=== PATIENT | female | born 1980 | race Caucasian/White ===

== ENCOUNTER 2019-12-16 08:17 | Outpatient (CLI) | payer BC, SELFPAY ==
--- NOTE | ~2019-12-16 | MR_ITS ---
EXAMINATION: MR cervical spine wo con EXAM DATE: 12/16/2019 09:20 INDICATION: Cervical pain, right arm pain. TECHNIQUE: Multi-sequential, multiplanar MR images of the cervical spine were obtained without contra st. Axial T2, axial T2 MERGE sequence. Sagittal T1, T2, T2 fat saturation images also obtained. Com parison is made to prior examination from 08/12/2011. FINDINGS: Mild to moderate disc disease at C6-7. The vertebral body and disc heights are otherwise w ell maintained. The vertebral bodies are aligned in the AP dimension. The spinal cord signal intensit y and intrinsic morphology is normal. Cervicomedullary junction is normal in appearance. Paraspinal soft tissue is unremarkable. Level by level evaluation: C2-C3: Disc does not extend beyond the endplate margin. Uncovertebral joint arthropathy: Minimal bilateral. Facet joint arthropathy: Minimal bilateral. Neural foraminal stenosis: No stenosis. Central canal stenosis: No stenosis. C3-C4: There is a minimal diffuse disc bulge. Uncovertebral joint arthropathy: Mild to moderate left, mild right. Facet joint arthropathy: Minimal bilateral. Neural foraminal stenosis: Mild left. Central canal stenosis: No stenosis. C4-C5: There is a minimal diffuse disc bulge. Uncovertebral joint arthropathy: Mild to moderate bilateral. Facet joint arthropathy: Mild bilateral. Neural foraminal stenosis: Mild bilateral. Central canal stenosis: No stenosis. C5-C6: There is a minimal diffuse disc bulge. Uncovertebral joint arthropathy: Mild bilateral. Facet joint arthropathy: Mild bilateral. Neural foraminal stenosis: No stenosis. Central canal stenosis: No stenosis. C6-C7: There is a mild to moderate diffuse disc bulge asymmetric to the right, indenting the right an terior aspect of spinal cord without cord edema. Uncovertebral joint arthropathy: Mild to moderate right, mild left. Facet joint arthropathy: Minimal bilateral. Neural foraminal stenosis: Mild to moderate right, mild left. Central canal stenosis: Mild. Central canal measures 7 mm in mid sagittal AP diameter . C7-T1: Disc does not extend beyond the endplate margin. Uncovertebral joint arthropathy: None. Facet joint arthropathy: None. Neural foraminal stenosis: No stenosis. Central canal stenosis: No stenosis. Compared to 2011, C6 disc bulge, right neural foraminal stenosis have developed. IMPRESSION: 1. C6-7 mild to moderate disc bulge, right neural foraminal stenosis. 2. Otherwise minimal cervical spondylosis. Reviewed, dictated and finalized at location A.
== END 2019-12-16 08:18 | disposition home or self-care (01) ==
LOC: ANHIMG 08:27
PROVIDERS: PCP Physician Assistant; Visit Provider Physician Assistant
DX: M79.2 Neuralgia and neuritis, unspecified (principal); M47.892 Other spondylosis, cervical region; M50.223 Other cervical disc displacement at C6-C7 level
CPT/HCPCS: 72141

== ENCOUNTER → 2020-08-04 13:39 | Outpatient (CLI) | payer BC, SELFPAY ==
--- NOTE | ~2020-08-04 | XR_ITS ---
XR knee RT 3V DATE: 08/04/2020 14:00 INDICATION: Acute right knee pain TECHNIQUE: 3 views COMPARISON: 08/05/2014 bilateral knee FINDINGS: Mild superior pole patellar enthesopathy at the quadriceps tendon insertion site and lower pole patellar enthesopathy at the patellar tendon insertion site. No fracture or dislocation or joint effusion. No periosteal reaction or bone destruction, radiopaque intra-articular loose body or chondrocalcinosis. Joint spaces are relatively preserved. IMPRESSION: Patellar enthesopathy Reviewed, dictated and finalized at location A. IMPRESSION: Patellar enthesopathy
== END ==
PROVIDERS: PCP Physician Assistant; Visit Provider Physician Assistant
DX: M25.561 Pain in right knee (principal); M76.51 Patellar tendinitis, right knee
CPT/HCPCS: 73562

== ENCOUNTER 2020-10-20 13:08 | Outpatient (CLI) | payer BC, SELFPAY ==
--- NOTE | ~2020-10-20 | MMUS_ITS ---
EXAMINATION: MM diagnostic criss RT w davi, US breast RT limited HISTORY: Palpable breast abnormality TECHNIQUE: Additional 3-D tomosynthesis images of the right breast were performed and synthetic 2-D i mages were generated. CAD analysis was submitted and interpreted. High resolution Limited right breas t ultrasound was performed. COMPARISON: None BREAST PARENCHYMAL COMPOSITION: Breast composed of scattered areas of fibroglandular density. FINDINGS: MAMMOGRAPHIC FINDINGS: There are no suspicious masses, calcifications or architectural distortion in the right breast to sug gest malignancy. ULTRASOUND: Limited right breast ultrasound: At 7:00, 5 cm from the nipple in the area of palpable concern there is an oval circumscribed hypoechoic mass in the subcutaneous tissues measuring 8 x 7 x 2 mm. No signi ficant posterior features. Parallel orientation. IMPRESSION: 1. Probable benign 8 mm subcutaneous mass of the right breast at 7:00, 5 cm from the nipple. 2. Recommend 6 month follow-up limited right breast ultrasound BI-RADS category 3, probably benign findings. Reviewed, dictated and finalized at location A. IMPRESSION: 1. Probable benign 8 mm subcutaneous mass of the right breast at 7:00, 5 cm fro m the nipple. 2. Recommend 6 month follow-up limited right breast ultrasound BI-RADS category 3, probably benign findings.
== END 2020-10-20 13:09 | disposition home or self-care (01) ==
PROVIDERS: PCP Physician Assistant; Visit Provider Physician Assistant
DX: N60.01 Solitary cyst of right breast (principal); R92.8 Other abnormal and inconclusive findings on diagnostic imaging of breast
CPT/HCPCS: 76642; 77061; 77065; G0279

== ENCOUNTER 2020-11-06 09:35 | Outpatient (CLI) | payer BC, SELFPAY ==
--- NOTE | 2020-11-06 | ECG_ITS ---
Measurements Intervals [place] Rate: 80 P: 62 IN: 137 QRS: 49 QRSD: 84 T: 54 QT: 373 QTc: 433 Interpretive Statements SINUS RHYTHM POSSIBLE LEFT ATRIAL ENLARGEMENT INCOMPLETE RIGHT BUNDLE BRANCH BLOCK LOW QRS VOLTAGE IN PRECORDIAL LEADS BORDERLINE ST-T WAVE ABNORMALITY- DIFFUSE LEADS BORDERLINE ECG Electronically Signed On 11-06-2020 10:23:25 CDT by Shar Mo D.O.
--- NOTE | ~2020-11-06 | XR_ITS ---
EXAMINATION: XR chest 2V DATE: 11/06/2020 10:06 INDICATION: Left anterior chest pain. TECHNIQUE: Frontal and lateral views of the chest were obtained on 3 radiographs. COMPARISON: Chest 2 views 10/09/2018 FINDINGS: A calcified left lung nodule is consistent with old granulomatous disease. No pleural effus ion or pneumothorax. The heart size is normal. There are changes of anterior fusion procedure in cerv ical spine. Surgical clips in the right upper quadrant are likely from cholecystectomy. IMPRESSION: 1. No acute cardiopulmonary disease. Reviewed, dictated and finalized at location B.
[2020-11-06 10:38] LABS: Basophils Absolute Auto 0.1 K/mm3 (0.0-0.1); Basophils Percent Auto 0.5 % (0.2-1.2); Eosinophils Absolute Auto 0.2 K/mm3 (0-0.3); Eosinophils Percent Auto 1.4 % (0-4.4); Hemoglobin 14.6 g/dL (12.0-15.0); Immature Granulocyte Absolute 0.03 K/mm3 (0.00-0.031); Immature Granulocyte Percent A 0.2 % (0-0.5); Lymphocytes Absolute Auto 1.88 K/mm3 (0.9-3.2); Lymphocytes Percent Auto 14.7 % (18.3-44.2); Mean Corpuscular HGB Conc 33.2 g/dl (32-36); Mean Corpuscular Volume 93.4 fl (80-100); Mean Platelet Volume 9.7 fl (7.4-10.4); Monocytes Absolute Auto 0.6 K/mm3 (0.1-0.6); Monocytes Percent Auto 4.9 % (2.6-8.5); Neutrophils Percent Auto 78.3 % (45.5-73.1); Platelet Count Result 261 k/mm3 (150-375); Red Blood Count 4.71 M/mm3 (4.2-5.4); Red Cell Distribution Width 12.4 % (11.5-14.5); White Blood Count 12.8 K/mm3 (4.5-10.0)
[2020-11-06 10:45] LABS: Alanine Aminotransferase 23 U/L (4-35); Albumin Level 4.5 g/dL (3.5-5.1); Alkaline Phosphatase 76 U/L (38-126); Anion Gap 8 mmol/L (8-16); Aspartate Amino Transferase 24 U/L (14-36); Bilirubin,Total 0.5 mg/dL (0.2-1.3); Blood Urea Nitrogen 6 mg/dL (7-17); Calcium 9.5 mg/dL (8.4-10.2); Carbon Dioxide 27 mmol/L (22-30); Chloride 102 mmol/L (98-107); Estimated Glomerular Filt Rate > 60; Glucose 95 mg/dL (65-110); Potassium 3.8 mmol/L (3.4-5.0); Sodium 137 mmol/L (137-145)
[2020-11-06 10:47] LABS: D Dimer 0.38 ug/mL (<0.48)
[2020-11-06 11:00] LABS: Troponin I < 0.012 ng/mL (0.000-0.034)
== END 2020-11-06 09:36 | disposition home or self-care (01) ==
PROVIDERS: PCP Physician Assistant; Visit Provider Physician Assistant
DX: R07.89 Other chest pain (principal); I45.10 Unspecified right bundle-branch block
CPT/HCPCS: 36415; 71046; 80053; 84484; 85025; 85380; 93005

== ENCOUNTER 2020-11-06 18:48 | Emergency (ER) | payer BC, SELFPAY ==
--- NOTE | 2020-11-06 18:51 | ECG_ITS ---
Measurements Intervals [place] Rate: 100 P: 55 CO: 137 QRS: 41 QRSD: 86 T: 55 QT: 351 QTc: 454 Interpretive Statements SINUS TACHYCARDIA POSSIBLE LEFT ATRIAL ENLARGEMENT LOW QRS VOLTAGE IN PRECORDIAL LEADS BORDERLINE ST-T WAVE ABNORMALITY- DIFFUSE LEADS BORDERLINE ECG Electronically Signed On 11-06-2020 20:07:56 CDT by Shar Mo D.O.
[2020-11-06 19:17] LABS: Basophils Absolute Auto 0.1 K/mm3 (0.0-0.1); Basophils Percent Auto 0.4 % (0.2-1.2); Eosinophils Absolute Auto 0.1 K/mm3 (0-0.3); Hematocrit 45.5 % (37.0-47.0); Hemoglobin 15.3 g/dL (12.0-15.0); Immature Granulocyte Absolute 0.04 K/mm3 (0.00-0.031); Immature Granulocyte Percent A 0.3 % (0-0.5); Lymphocytes Absolute Auto 2.98 K/mm3 (0.9-3.2); Lymphocytes Percent Auto 23.2 % (18.3-44.2); Mean Corpuscular HGB Conc 33.6 g/dl (32-36); Mean Corpuscular Hemoglobin 31.2 pg (26-34); Mean Corpuscular Volume 92.7 fl (80-100); Mean Platelet Volume 9.6 fl (7.4-10.4); Monocytes Absolute Auto 0.6 K/mm3 (0.1-0.6); Monocytes Percent Auto 4.4 % (2.6-8.5); Neutrophils Absolute Auto 9.1 K/mm3 (1.3-6.7); Neutrophils Percent Auto 70.7 % (45.5-73.1); Platelet Count Result 271 k/mm3 (150-375); Red Blood Count 4.91 M/mm3 (4.2-5.4); Red Cell Distribution Width 12.4 % (11.5-14.5); White Blood Count 12.9 K/mm3 (4.5-10.0)
[2020-11-06 19:28] LABS: Partial Thromboplastin Time 25.6 SECONDS (22.3-36.8)
[2020-11-06 19:29] LABS: Anion Gap 10 mmol/L (8-16); Blood Urea Nitrogen 7 mg/dL (7-17); Calcium 9.8 mg/dL (8.4-10.2); Carbon Dioxide 24 mmol/L (22-30); Chloride 103 mmol/L (98-107); Estimated Glomerular Filt Rate > 60; Glucose 108 mg/dL (65-110); Potassium 3.6 mmol/L (3.4-5.0); Sodium 137 mmol/L (137-145)
[2020-11-06 19:37] VITALS: BP 142/88; PULSE 101; RESP 18; TEMP 36.5; O2SAT 100
[2020-11-06 19:41] LABS: Troponin I < 0.012 ng/mL (0.000-0.034)
[2020-11-06 21:27] VITALS: BP 128/76; PULSE 81; O2SAT 98
--- NOTE | 2020-11-06 21:54 | PC.NURSE ---
2154: Called pt to go back to a room, no answer
--- NOTE | 2020-11-06 23:53 | PC.NURSE ---
Called pt for room placement at this time. No answer.
== END 2020-11-06 23:53 | disposition left against medical advice (07) ==
LOC: ANHED 11-07 00:04
PROVIDERS: Emergency Medicine; PCP Physician Assistant
DX: R07.9 Chest pain, unspecified (principal)
CPT/HCPCS: 36415; 80048; 84484; 85025; 85610; 85730; 93005; 99199

== ENCOUNTER 2021-04-29 12:12 | Outpatient (CLI) | payer BC, SELFPAY ==
--- NOTE | ~2021-04-29 | US_ITS ---
EXAMINATION: US breast RT limited HISTORY: Six-month follow-up for probably benign right breast mass TECHNIQUE: Limited right breast ultrasound is performed. COMPARISON: 10/20/2020 FINDINGS: There is a 6 mm x 2 mm oval, hypoechoic mass in the skin at the 7:00 location 5 cm from the nipple in the area previously characterized. This has reportedly undergone interval ulceration and d rainage. IMPRESSION: Skin lesion of the right breast with interval decrease in size, most consistent with a sebaceous cyst . BI-RADS Category 2: Benign finding(s). Reviewed, dictated and finalized at location A. 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 BI-RADS Category 2: Benign finding(s).
== END 2021-04-29 12:13 | disposition home or self-care (01) ==
LOC: ANHIMG 12:15
PROVIDERS: PCP Physician Assistant; Visit Provider Physician Assistant
DX: R92.8 Other abnormal and inconclusive findings on diagnostic imaging of breast (principal)
CPT/HCPCS: 76642

== ENCOUNTER → 2021-05-05 16:42 | Outpatient (CLI) | payer BC, SELFPAY ==
--- NOTE | ~2021-05-05 | XR_ITS ---
EXAMINATION: XR sacrum coccyx min 2V DATE: 05/05/2021 17:25 INDICATION: Back pain post fall TECHNIQUE: 1. One AP, lateral and lateral swimmer's views of the thoracic spine were obtained. 2. AP, lateral and coned-down lateral lumbosacral views of the lumbar spine were obtained. 3. AP, angled AP and lateral views of the sacrum and coccyx were obtained. COMPARISON: None. FINDINGS: C6-C7 anterior spinal fusion with interbody bone graft cages and anterior plate and screw fixation. 5 degrees upper thoracic levocurvature. Otherwise normal alignment of the thoracic and lumbar spine. T horacic and lumbar vertebral body heights are normal. There is mild disc height loss with minimal deg enerative endplate changes at a few levels the mid and lower thoracic spine. Lumbar disc heights are normal with mild degenerative endplate changes at L2-L3 and L3-L4. Sacrum and coccyx are normal with intact sacral arches. No fractures identified. Bilateral hip and sacroiliac joints are normal. Uncha nged sclerotic bone island at the left iliac crest unchanged since pelvis radiograph dated 08/02/2014. Cholecystectomy clips in right upper quadrant. Visualized lungs are clear. Cardiomediastinal silhoue tte is normal. IMPRESSION: 1. Mild thoracic and minimal lumbar spondylosis. No acute osseous abnormality in the thoracic and lum bar spine, sacrum or coccyx. Reviewed, dictated and finalized at location A. ALARM DISPATCHER IMPRESSION: 1. Mild thoracic and minimal lumbar spondylosis. No acute osseous abnormality i n the thoracic and lumbar spine, sacrum or coccyx.
--- NOTE | ~2021-05-05 | XR_ITS ---
EXAMINATION: XR thoracic spine 3V DATE: 05/05/2021 17:25 INDICATION: Back pain post fall TECHNIQUE: 1. One AP, lateral and lateral swimmer's views of the thoracic spine were obtained. 2. AP, lateral and coned-down lateral lumbosacral views of the lumbar spine were obtained. 3. AP, angled AP and lateral views of the sacrum and coccyx were obtained. COMPARISON: None. FINDINGS: C6-C7 anterior spinal fusion with interbody bone graft cages and anterior plate and screw fixation. 5 degrees upper thoracic levocurvature. Otherwise normal alignment of the thoracic and lumbar spine. T horacic and lumbar vertebral body heights are normal. There is mild disc height loss with minimal deg enerative endplate changes at a few levels the mid and lower thoracic spine. Lumbar disc heights are normal with mild degenerative endplate changes at L2-L3 and L3-L4. Sacrum and coccyx are normal with intact sacral arches. No fractures identified. Bilateral hip and sacroiliac joints are normal. Unchan ged sclerotic bone island at the left iliac crest unchanged since pelvis radiograph dated 08/02/2014. Cholecystectomy clips in right upper quadrant. Visualized lungs are clear. Cardiomediastinal silhouet te is normal. IMPRESSION: 1. Mild thoracic and minimal lumbar spondylosis. No acute osseous abnormality in the thoracic and lum bar spine, sacrum or coccyx. Reviewed, dictated and finalized at location A. SCALE MAN IMPRESSION: 1. Mild thoracic and minimal lumbar spondylosis. No acute osseous abnormality i n the thoracic and lumbar spine, sacrum or coccyx.
--- NOTE | ~2021-05-05 | XR_ITS ---
EXAMINATION: XR lumbar spine 2-3V DATE: 05/05/2021 17:25 INDICATION: Back pain post fall TECHNIQUE: 1. One AP, lateral and lateral swimmer's views of the thoracic spine were obtained. 2. AP, lateral and coned-down lateral lumbosacral views of the lumbar spine were obtained. 3. AP, angled AP and lateral views of the sacrum and coccyx were obtained. COMPARISON: None. FINDINGS: C6-C7 anterior spinal fusion with interbody bone graft cages and anterior plate and screw fixation. 5 degrees upper thoracic levocurvature. Otherwise normal alignment of the thoracic and lumbar spine. T horacic and lumbar vertebral body heights are normal. There is mild disc height loss with minimal deg enerative endplate changes at a few levels the mid and lower thoracic spine. Lumbar disc heights are normal with mild degenerative endplate changes at L2-L3 and L3-L4. Sacrum and coccyx are normal with intact sacral arches. No fractures identified. Bilateral hip and sacroiliac joints are normal. Unchan ged sclerotic bone island at the left iliac crest unchanged since pelvis radiograph dated 08/02/2014. Cholecystectomy clips in right upper quadrant. Visualized lungs are clear. Cardiomediastinal silhouet te is normal. IMPRESSION: 1. Mild thoracic and minimal lumbar spondylosis. No acute osseous abnormality in the thoracic and lum bar spine, sacrum or coccyx. Reviewed, dictated and finalized at location A. REDUCTION TECHNICIAN IMPRESSION: 1. Mild thoracic and minimal lumbar spondylosis. No acute osseous abnormality i n the thoracic and lumbar spine, sacrum or coccyx.
--- NOTE | ~2021-05-05 | XR_ITS ---
EXAMINATION: XR hip LT min 2V DATE: 05/05/2021 17:24 INDICATION: Left hip pain TECHNIQUE: Anteroposterior , frog leg and cross-table lateral views of the left hip were obtained. COMPARISON: 08/05/2014 FINDINGS: Alignment is normal. No fracture. No suspected avascular necrosis. Left hip joint space is normal. Un changed sclerotic bone island at the left iliac wing. IMPRESSION: 1. Negative left hip radiographs. Reviewed, dictated and finalized at location A. OMS ENTRY WRITER
== END ==
PROVIDERS: PCP Physician Assistant; Visit Provider Physician Assistant
DX: M54.42 Lumbago with sciatica, left side (principal); M54.41 Lumbago with sciatica, right side; G89.29 Other chronic pain; M25.559 Pain in unspecified hip; M47.894 Other spondylosis, thoracic region
CPT/HCPCS: 72072; 72100; 72220; 73502

== ENCOUNTER 2021-06-15 09:30 | Outpatient (RCR) | payer BC, SELFPAY ==
--- NOTE | 2021-04-30 17:41 | PTOPEVAL ---
Thank you for referring Kelsie Vaughn to [facility].? The patient is scheduled to be seen for therapy?1 x/week for 8 weeks. Please review, sign, date and return this plan of care STEFANI. I agree with and certify that the following plan of care is medically necessary. Referring Physician Date Attending Provider: Bradley Pitts Problem Diagnosis NTOS corey Onset chronic Additional Evaluation Detail 2020 in therapy after neck surgery. She had TOS therapy in her 20's. Subjective Information She reports limitation with Query Text:As Reported By Patient/ all activities due to her UE Family pain. She c/o numbness and spasms into corey UE. Reports the pain is in her chest, front of shoulder, scapular/ arm pit region. She is limited with prolonged overhead use due to UE numbness. Prolonged driving increases symptoms unless her UE are located on the bottom of wheel. Increased symptoms and hand spasms with prolonged use of hands with typing or writing. Increased pain/ symptoms noted with sleeping. Pain Assessment Timing of Pain Assessment Timing of Pain Assessment Assessment Pain Scale Pain Scale Used Numeric (1 - 10) Self Report Pain Assessment Left Arm(s) Reported Pain Level 3 Pain Description Aching,Numbness,Radiating, Tingling Pain Frequency Chronic,Continuous Lowest Pain Intensity 3 Greatest Pain Intensity 7 Pain Aggravating Factors ADL's,Exercise/Activity, Lifting,Prolonged Position, Sitting Right Arm(s) Reported Pain Level 3 Pain Description Numbness,Radiating,Tingling Pain Frequency Chronic,Continuous Lowest Pain Intensity 3 Greatest Pain Intensity 8 Pain Aggravating Factors ADL's,Exercise/Activity, Lifting,Prolonged Position, Sitting Pain Score Pain Score 3,3: Self Report Interventions Used Interventions Used By Clinicians Education,Exercise Upper Extremity Range of Motion Scapular/ Shoulder Range of Motion Left Shoulder Flexion - Active 160 Shoulder Extension - Active 40 Shoulder Abduction - Active 160 Shoulder Medial Rotation - Active
--- NOTE | 2021-06-01 08:58 | PCPTNOTE ---
Patient called & cancelled scheduled appointment this date due to having a flare-up today.
--- NOTE | 2021-06-22 08:54 | PCPTNOTE ---
Patient called & cancelled scheduled appointment this date due to car trouble.
--- NOTE | 2021-07-07 07:10 | PCPTNOTE ---
Admitting Provider: Attending Provider: Bradley Pitts Patient:Kelsie Vaughn Date of :1980 Physical Therapy Discharge Note Patient has not returned for any further treatments since 06/15/2021, therefore she will be discharged at this time. Patient?s initial visit was on 04/30/2021 and she had a total of 6 visits with 3 missed visits. She has been provided home exercise program to address her symptoms. As a result of skilled therapy services she demonstrates only slight changes with joint motion with no changes in symptoms. The goals have been partially met to not me at this time. Thank you for referring this patient to [facility]. Please review, sign, date and return this discharge summary STEFANI. I have been updated about the patient's current status and I agree with discharge from the above service at this time. Referring Physician Date
== END 2021-07-07 11:20 | disposition home or self-care (01) ==
LOC: ANHPT 09:30
PROVIDERS: PCP Physician Assistant
DX: G54.0 Brachial plexus disorders (principal)
CPT/HCPCS: 97110; 97112; 97140; 97163

== ENCOUNTER 2021-10-12 08:16 | Inpatient (IN) | payer BC, SELFPAY ==
[2021-10-12] VITALS (11 sets, daily range): BP systolic 93–111; BP diastolic 57–84; PULSE 90–114; RESP 16–22; TEMP 36.2–36.9; O2SAT 97–99
--- NOTE | 2021-10-12 | ECHO_ITS ---
Patient Info Name: Kelsie Vaughn Age: 40 years : 1980 Gender: Female Ht: 65 in Wt: 213 lbs BSA: 2.15 m2 HR: 109 bpm BP: 104 / 84 mmHg Heart Rhythm: Sinus Rhythm Technical Quality: Fair Exam Date: 10/12/2021 4:19 PM Exam Location: [facility] Pulmonary Exam Room: 201 Patient Status: Inpatient Admit Date: 10/12/2021 Staff Ordering Physician: Trip Johnson MD Shell Freezing Machine Operator: [id number] Attending Provider: Sheela Jean-Baptiste DO Referring Physician: Elizabeth BECERRIL; Exam Type: CA echo doppler color flow Study Info Indications - pericardial effusion Complete two-dimensional, color flow and Doppler transthoracic echocardiogram is performed. Summary 1. Complete two-dimensional, color flow and Doppler transthoracic echocardiogram is performed. 2. Left ventricular chamber dimension is normal. 3. Left ventricular systolic function is normal, estimated at 60-65%. 4. The pericardium appears thickened pericardium. 5. There is small circumferential pericardial effusion. 6. No valvular dysfunction. Left Ventricle Left ventricular chamber dimension is normal. Left ventricular systolic function is normal, estimated at 60-65%. The left ventricular diastolic function is grade I diastolic dysfunction. Right Ventricle Right ventricular chamber dimension is normal. Left Atria Left atrial chamber dimension is normal. Right Atria Right atrial chamber dimension is normal. Aortic Valve The aortic valve is normal. Pulmonic Valve The pulmonic valve is not well visualized. Mitral Valve The mitral valve has normal leaflets. Tricuspid Valve The tricuspid valve leaflets are normal. Pericardium/Pleural The pericardium appears thickened pericardium. There is small circumferential pericardial effusion. Aorta The aortic root size at the sinus of Valsalva is normal. Left Ventricular Outflow Tract Name Value Normal LVOT 2D LVOT Diameter 2.0 cm LVOT Doppler LVOT Peak Gradient 4 mmHg LVOT Mean Gradient 2 mmHg LVOT VTI 14 cm LVOT VTI/AV VTI Ratio 1.1 LVOT Stroke Volume 46 ml LVOT CO 11.2 l/min LVOT CI 5.2 l/min/m2 Pulmonic Valve Name Value Normal PV Doppler PV Peak Gradient 4 mmHg Mitral Valve Name Value Normal MV Doppler MV Decel Calloway 173 cm/s2 MV PHT 64 ms MV Area (PHT)
--- NOTE | ~2021-10-12 | XR_ITS ---
EXAMINATION: XR chest 1V portable 10/12/2021 12:00 INDICATION: Cough PROCEDURE: AP portable chest COMPARISON: Comparison to multiple prior studies sequentially, with oldest reviewed study dated 12/08. FINDINGS: The lungs are clear. The cardiomediastinal silhouette is within normal limits. There are no pleural effusions. There is no pneumothorax suspected. IMPRESSION: 1: NO ACUTE CARDIOPULMONARY DISEASE. Reviewed, dictated and finalized at location A.
--- NOTE | ~2021-10-12 | US_ITS ---
EXAMINATION: US abdomen limited DATE: 10/13/2021 12:36 INDICATION: Elevated liver function tests TECHNIQUE: Multiple grayscale and Doppler ultrasound images of the abdomen were obtained. COMPARISON: CT from yesterday FINDINGS: Bowel gas obscures visualization of the pancreas. The visualized portions of the pancreas a re unremarkable. The liver is normal with normal echogenicity and echotexture. No surface nodularity. Normal hepatopetal flow in the main portal vein. The gallbladder is surgically absent. The normal co mmon bile duct measures 3 mm. There was no sonographic Monroe sign. IMPRESSION: 1. No sonographic correlate for the patient's symptoms. Reviewed, dictated and finalized at location B.
--- NOTE | ~2021-10-12 | CT_ITS ---
EXAMINATION: CT abdomen pelvis w con DATE: 10/12/2021 11:26 INDICATION: Abdomen pain. TECHNIQUE: Computed tomography (CT) of the abdomen and pelvis was performed with 100 cc Omnipaque 300 intravenous contrast. The dose-length product was 1361.28 mGy-cm. Automated exposure control and ite rative reconstruction technique were employed. COMPARISON: CT dated 05/06/2011. FINDINGS: Moderate pericardial effusion. No significant pleural effusion. There is dependent atelecta sis. There is diffuse fatty infiltration of the liver. The spleen and kidneys are unremarkable. There is bilateral adrenal thickening, likely benign hyperplasia. Nonobstructive bowel gas pattern. Normal appendix. There is subtle stranding surrounding the pancreatic head. Consider pancreatitis in the ap propriate clinical setting. Status post hysterectomy. Few colonic diverticula without diverticulitis. No small bowel dilation. No free air. There are cholecystectomy clips. IMPRESSION: 1. Subtle peripancreatic stranding adjacent to the pancreatic head. Consider pancreatitis in the appr opriate clinical setting. 2: Moderate pericardial effusion. 3: Hepatic steatosis. Reviewed, dictated and finalized at location A. IMPRESSION: 1. Subtle peripancreatic stranding adjacent to the pancreatic head. Consider pa ncreatitis in the appropriate clinical setting. 2: Moderate pericardial effusion. 3: Hepatic steatosis.
[2021-10-12] MEDS: ONDANSETRON INJ 4 MG/2 ML VIAL IV PUSH ×2 (09:20→17:04)
[2021-10-12] MEDS: FAMOTIDINE 20 MG/2 ML VIAL IV PUSH (09:20)
[2021-10-12] MEDS: SODIUM CHLORIDE 0.9% IV 1,000 ML 999 ML IV CONT ×2 (09:20→11:33)
[2021-10-12 09:41] LABS: Basophils Percent Auto 0.1 % (0.2-1.2); Eosinophils Percent Auto 0.2 % (0-4.4); Hematocrit 41.7 % (37.0-47.0); Hemoglobin 14.2 g/dL (12.0-15.0); Immature Granulocyte Absolute 0.08 K/mm3 (0.00-0.031); Immature Granulocyte Percent A 0.5 % (0-0.5); Lymphocytes Absolute Auto 2.25 K/mm3 (0.9-3.2); Lymphocytes Percent Auto 13.4 % (18.3-44.2); Mean Corpuscular HGB Conc 34.1 g/dl (32-36); Mean Corpuscular Hemoglobin 30.5 pg (26-34); Mean Corpuscular Volume 89.7 fl (80-100); Mean Platelet Volume 12.7 fl (7.4-10.4); Monocytes Percent Auto 6.1 % (2.6-8.5); Neutrophils Absolute Auto 13.4 K/mm3 (1.3-6.7); Neutrophils Percent Auto 79.7 % (45.5-73.1); Platelet Count Result 132 k/mm3 (150-375); Red Blood Count 4.65 M/mm3 (4.2-5.4); Red Cell Distribution Width 13.2 % (11.5-14.5); White Blood Count 16.8 K/mm3 (4.5-10.0)
[2021-10-12 09:51] LABS: Alanine Aminotransferase 188 U/L (6-35); Albumin Level 3.4 g/dL (3.5-5.1); Alkaline Phosphatase 88 U/L (38-126); Anion Gap 13 mmol/L (8-16); Aspartate Amino Transferase 191 U/L (14-36); Bilirubin,Total 0.7 mg/dL (0.2-1.3); Blood Urea Nitrogen 28 mg/dL (7-17); Calcium 8.5 mg/dL (8.4-10.2); Carbon Dioxide 19 mmol/L (22-30); Chloride 91 mmol/L (98-107); Estimated CRCL calculation 60 ml/min; Estimated Glomerular Filt Rate 46; Glucose 112 mg/dL (65-110); Lipase 495 U/L (23-300); Potassium 4.9 mmol/L (3.4-5.0); Sodium 123 mmol/L (137-145)
[2021-10-12 10:26] LABS: Appearance Urine Slightly Cloudy (Clear); Bilirubin Urine 2+ (Negative); Blood Urine 1+ (Negative); Color Urine Yellow (Yellow); Glucose Urine UA Negative (Negative); Ketones Urine Trace mg/dL (Negative); Leukocyte Esterase Ur Negative LEU/UL (Negative); Nitrate Urine Negative (Negative); Protein Urine 1+ mg/dL (Negative); Specific Grav Ur >= 1.030 (1.001-1.035); Urobilinogen Urine 0.2 mg/dL (<2.0); pH Urine 5.5 (5.0-9.0)
[2021-10-12 10:37] LABS: Cellular Casts Urine Present /lpf; Hyaline Casts Urine 30-49 /lpf; Mucus Urine Few /lpf; Squamous Epithelial Cell Urine Many /hpf (Few); WBC Urine 16-20 /hpf
[2021-10-12 10:38] LABS: Add Urine Microscopic? YES
[2021-10-12] MEDS: PROMETHAZINE HCL 25 MG/ML AMPUL 12.5 MG IV PUSH (11:00)
[2021-10-12 11:32] LABS: Lactic Acid Reflex 3.2 mmol/L (0.7-2.0)
[2021-10-12] MEDS: SODIUM CHLORIDE 0.9% IV 50 ML 999 ML (11:34)
--- NOTE | 2021-10-12 11:56 | ED.GENADULT ---
HPI - General Adult General Chief complaint: Extremity Injury, Upper Stated complaint: N/V post op 10/30 Time Seen by Provider: 10/12/21 08:33 Source: RN notes reviewed History of Present Illness HPI narrative: Patient presents emergency department from home for nausea and vomiting. Patient states that she has been having emesis for the past 4 days and has been able to keep anything home. 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 She states she stayed in the hospital until October 09 and then was discharged home she states she was doing well at home until she began to have nausea vomiting starting on Tuesday the and has been unable to keep anything down since that time. States she had a mild fever last week but denies any fever over the past several days she denies having any definitive abdominal pain she denies chest pain shortness of breath or any other symptoms. Related Data Allergies Allergy/AdvReac Type Severity Reaction Status Date / Time acetaminophen [From Tylenol] Allergy Itching Verified 10/12/21 08:38 Review of Systems Review of Systems: Gen.: Denies fevers or chills ENT: Denies congestion Respiratory: Denies shortness of breath or cough CV: Denies chest pain or palpitations GI: See HPI Musculoskeletal: Denies back pain or muscle pain reports recent right shoulder surgery Neuro: Denies numbness, tingling, weakness or focal weakness Skin: Denies rash Except as documented, all other systems reviewed and negative [facility] Past Medical History Medical History (Updated 10/12/21 @ 14:05 by Bradley Morse DO) Thoracic outlet syndrome Surgical History Surgical History (Updated 10/12/21 @ 12:01 by Bradley Morse DO) History of cholecystectomy Family History Family History (Updated 06/04/11 @ 07:25 by DOCTOR UNKNOWN) Other Hypertension Social History Social History Smoking status: Current every day smoker Alcohol intake: never Gender identity (if verbalized by the patient): Female Exam Narrative: APPEARANCE: No acute distress, nontoxic, resting in bed EYES: EOMI HEENT: Normocephalic, atraumatic, OMM RESPIRATORY: No respiratory distress Clear to auscultation bilaterally with no rhonchi wheezing or rales. CARDIOVASCULAR: Regular rate and rhythm without murmurs rubs or gallops. Dorsalis pedis pulse 2+ Chest: Healing surgical wounds over the right anterior superior chest that are clean dry and intact mild surrounding ecchymosis ABDOMINAL: Soft, nontender, nondistended, no rebound or guarding MUSCULOSKELETAl: Moves all extremities. No clubbing, cyanosis or edema. NEURO: Awake and alert. Following commands, speech normal, no focal deficits SKIN:: Warm, dry. No rashes lesions or abrasions PSYCHIATRIC: Normal affect/mood, Course Course Emergency Course: Discussed with Dr. Pitts at [facility] states he does feel comfortable patient seen in our facility for treatment I discussed pericardial effusion he states that patient's thoracic outlet syndrome surgery does not enter the mediastinum and this is not secondary to surgery Discussed with Dr. Desai agrees with consult for pancreatitis Discussed with MARISOL Alcaraz for Dr. Johnson agrees with consult agrees with echo at this time Discussed with Dr. Gaona agrees with admission Discussed with patient and family results of workup and diagnosis. Discussed need for admission. Patient and family understand and agree to current treatment plan Vital Signs Vital signs: Vital Signs Temperature 98.5 F 10/12/21 08:34 Pulse Rate 90 10/12/21 08:34 Respiratory Rate 18 10/12/21 08:34 Blood Pressure 99/57 L 10/12/21 08:34 Pulse Oximetry 98 10/12/21 08:34 Oxygen Delivery Room Air 10/12/21 08:34 Temperature 98.5 F 10/12/21 08:34 Pulse Rate 90 10/12/21 10:55 Respiratory Rate 20 10/12/21
--- NOTE | 2021-10-12 11:59 | ECG_ITS ---
Measurements Intervals [place] Rate: 94 P: 56 NH: 124 QRS: 69 QRSD: 71 T: 39 QT: 345 QTc: 432 Interpretive Statements SINUS RHYTHM LOW QRS VOLTAGE IN LIMB LEADS CANNOT RULE OUT SEPTAL INFARCT, AGE INDETERMINATE BASELINE ARTIFACT- II, III, AVL, AVF ABNORMAL ECG Electronically Signed On 10-12-2021 13:16:27 CDT by Shar Mo D.O.
[2021-10-12] MEDS: MORPHINE SULFATE (*CRX) 2 MG/ML INJ IV PUSH (12:05)
[2021-10-12 12:16] LABS: SARS-CoV-2 RNA PCR Positive
[2021-10-12] MEDS: SODIUM CHLORIDE 0.9% IV 1,000 ML 125 ML IV CONT ×2 (13:36→17:04)
[2021-10-12 14:19] LABS: Reflex Lactic Acid Yes or No Add Lactic
--- NOTE | 2021-10-12 14:37 | ADMGEN ---
This patient, Kelsie Vaughn, was admitted to IMU Room 201-01. Patient/family oriented to hospital policies and general routines including ID bracelet, bed and alarms, visiting hours, pain management, procedures, bathroom and other care routines, personal items, smoking policy, room service/diet, and visiting hours. Information on how to activate the Rapid Response Team has been discussed. Patient/Family are encouraged to report perceived risks to care and to ask questions if they do not understand what they are told or what they should do.
--- NOTE | 2021-10-12 14:48 | PM.IMHP ---
H&P: HPI History of Present Illness Date/Time: 10/12/21 14:48 Chief Complaint: 40-year-old female with past medical history significant for lupus, RA, fibromyalgia and recent thoracic outlet syndrome release surgery done at [place] on September 29 is presenting with nausea and vomiting for the last 3-4 days. Patient states that she has been unable to keep any p.o. intake down for the last 4 days. She is having low-grade fevers at home, but did not check her temperature. She reports some shaking and chills. She denies diarrhea or constipation. She does have some epigastric discomfort. She also has continued shoulder pain with thoracic outlet surgery was performed. She denies chest pain or shortness of breath. In the ER, a CT abdomen and pelvis was ordered showing subtle peripancreatic stranding adjacent to the pancreatic head as well as a moderate pericardial effusion and hepatic steatosis. Chest x-ray was done and showed no acute cardiopulmonary disease. She was started on IV fluids in the ER and given Zofran, Phenergan, morphine and Pepcid. Her symptoms improved significantly, however, when she arrived to the floor, she requested pain and nausea medications again. She was made NPO and Cardiology was consulted for the pericardial effusion and GI was consulted for possible pancreatitis seen on the CT. She was noted to have acute kidney injury with a creatinine of 1.3 and a BUN of 28, baseline appears to be closer 2.8 with a BUN of 7. Lactic acid was elevated at 3.2, recheck was only down to 3.1 despite significant fluid rehydration. She had a transaminitis with an AST of 191 an ALT of 188. Urinalysis was abnormal and COVID was positive. Review of Systems Review of Systems: ? 12 point review of systems was assessed and was negative except as noted in the HPI [facility] Past Medical History Medical History Thoracic outlet syndrome Surgical History Surgical History History of cholecystectomy Family History Family History Other Hypertension Social History Social History Smoking packs per day: 0.5 Smoking cigarettes per day: 10.0 Years smoked: 20 Smoking pack-years: 10.00 Smoking status: Current every day smoker Tobacco type: cigarettes Alcohol intake: never Substance use: current Substance use type: marijuana Last use: couple weeks ago Gender identity (if verbalized by the patient): Female Spiritual care concerns: No Meds Home Medications and Allergies Home Medications Medication Instructions Recorded Confirmed Type adalimumab 40 mg/0.4 mL 40 mg subcut WEEKLY 10/12/21 10/12/21 History subcutaneous pen kit (Humira(CF) Pen) albuterol sulfate 90 mcg/actuation 1 - 2 puff inhalation Q4-6H PRN 10/12/21 10/12/21 History aerosol inhaler Shortness Of Breath atorvastatin 20 mg tablet 20 mg PO HS 10/12/21 10/12/21 History dicyclomine 20 mg tablet 20 mg PO HS PRN Abdominal Pain 10/12/21 10/12/21 History hydroxychloroquine 200 mg tablet 200 mg PO Q12H 10/12/21 10/12/21 History ibuprofen 600 mg tablet 600 mg PO Q6H PRN Pain 10/12/21 10/12/21 History magnesium oxide 400 mg (241.3 mg 400 mg PO 2000 10/12/21 10/12/21 History magnesium) tablet meloxicam 7.5 mg tablet 7.5 mg PO Q12H PRN Pain 10/12/21 10/12/21 History methocarbamol 500 mg tablet 500 mg PO Q8H PRN Muscle Spasm 10/12/21 10/12/21 History metoprolol succinate 50 mg 25 mg PO HS 10/12/21 10/12/21 History tablet,extended release 24 hr omeprazole 40 mg capsule,delayed 40 mg PO Q12H 10/12/21 10/12/21 History release ondansetron 4 mg disintegrating 4 mg PO Q8H PRN Nausea And Vomiting 10/12/21 10/12/21 History tablet oxycodone 5 mg tablet 5 mg PO Q4H PRN Pain 10/12/21 10/12/21 History prednisone 5 mg tablet 5 mg PO Q12H PRN
[2021-10-12 15:05] LABS: Lactic Acid 3.1 mmol/L (0.7-2.0)
--- NOTE | 2021-10-12 15:45 | PM.CNCAR ---
Assessment and Plan Assessment and plan (1) Acute pericardial effusion: Code(s): I30.9 - Acute pericarditis, unspecified Status: Acute Plan This is a 40-year-old woman who has been seen in the emergency room today with a 4-5 day history of some nausea poor p.o. intake and vomiting of most anything she tries to eat or drink. She appears to be somewhat volume depleted based on her lab data. He she had a evaluation in the emergency room which included an abdominal CT some of the thoracic it is showed some evidence of pericardial fluid. This is likely a small effusion since her chest x-ray does not show any enlargement of her cardiac silhouette. This is almost certainly an extra-articular manifestation of her SLE/RA syndrome. She does not have any evidence of hemodynamic sequelae related to this infusion and it has nothing to do with her clinical complaints that brought her to the hospital today. I will get an echocardiogram to more accurately look at the size/nature of this fluid on the other hand at this point there is unlikely to be anything we will do in the way of further evaluation other than ultrasound. She is followed by a it director at [facility] who should be made aware of this. Trip Johnson MD [facility] History of Present Illness History of Present Illness Consult date/time: 10/12/21 15:45 Reason For Visit: COVID 19/Hyponatremia/pericardial effusion/acute r Narrative: This is a 40-year-old woman I am seeing at the request of the hospitalist in consultation because she has been found to have a pericardial effusion. She came to the hospital emergency room earlier today because she has been feeling unwell for about 4 days with nausea vomiting and unable to keep much down in the way of fluid or food. She has not really been complaining or experiencing significant abdominal pain but she has been nauseated and vomiting when she tries to eat anything. She was evaluated in the emergency room and it looks like found to have some evidence of pancreatitis looking at her lab data. A CT scan of the abdomen was done which obviously included some cuts into the thorax and she was found to have a pericardial effusion. The effusion is described as being moderate according to the radiologist. I looked at her standard chest x-ray in the cardiac silhouette does not appear to be enlarged on her standard x-ray. She does not describe any cardiac symptoms or complaints. She states that she follows with a temperature control inspector elsewhere because of a history of some sort of atrial tachycardia. She does not know the specific diagnosis of this but she states it is treated with metoprolol. She underwent a workup of this arrhythmia at [facility] where her temperature control inspector works and she states that she had a stress test followed by a coronary angiogram about a year ago. The cut with the catheterization she recalls being normal. She does not remember being told of any pericardial fluid. She does carry the diagnosis of systemic lupus erythematosus and rheumatoid arthritis. She is taking you my carina as well as prednisone for that. She was recently hospitalized at [place] for right shoulder MARCO A surgery. Laboratory data demonstrates moderately elevated AST, ALT mildly elevated lipase and some labs that suggests a pre renal/volume depletion state. Review of Systems Constitutional: Constitutional: Reports fatigue Eyes: Eyes: Reports no additional eye complaints ENT: Reports system reviewed and no additional complaints, except as documented Cardiovascular: Cardiovascular: Reports no additional cardiovascular complaints Respiratory: Respiratory: Reports no additional respiratory complaints Gastrointestinal: Gastrointestinal: Reports as per HPI, Reports nausea and Reports vomiting Musculoskeletal: Musculoskeletal: Reports no additional musculoskeletal complaints Integumentary/Breasts: Skin/Breast: Reports system reviewed and no additional complaints, exc
[2021-10-12] MEDS: oxyCODONE HCL (*CRX) 5 MG TAB IR PO ×2 (17:03→21:52)
[2021-10-12] MEDS: ATORVASTATIN 20 MG TABLET PO (21:44)
[2021-10-12] MEDS: HYDROXYCHLOROQUINE SULFATE 200 MG TABLET PO (21:44)
[2021-10-12] MEDS: METOPROLOL SUCCINATE EXT REL 25 MG TABCR PO (21:44)
[2021-10-12] MEDS: MAGNESIUM OXIDE 400 MG TABLET PO (21:44)
[2021-10-12] MEDS: PANTOPRAZOLE 40 MG TABLET PO (21:44)
[2021-10-13] VITALS (15 sets, daily range): BP systolic 98–119; BP diastolic 66–78; PULSE 75–102; RESP 16–20; TEMP 36.1–36.7; O2SAT 96–100
[2021-10-13 04:40] LABS: Basophils Absolute Auto 0.1 K/mm3 (0.0-0.1); Basophils Percent Auto 0.3 % (0.2-1.2); Eosinophils Absolute Auto 0.1 K/mm3 (0-0.3); Eosinophils Percent Auto 0.7 % (0-4.4); Hematocrit 42.1 % (37.0-47.0); Hemoglobin 13.8 g/dL (12.0-15.0); Immature Granulocyte Absolute 0.14 K/mm3 (0.00-0.031); Immature Granulocyte Percent A 0.9 % (0-0.5); Lymphocytes Absolute Auto 3.39 K/mm3 (0.9-3.2); Lymphocytes Percent Auto 22.1 % (18.3-44.2); Mean Corpuscular HGB Conc 32.8 g/dl (32-36); Mean Corpuscular Hemoglobin 30.8 pg (26-34); Monocytes Absolute Auto 1.4 K/mm3 (0.1-0.6); Monocytes Percent Auto 9.3 % (2.6-8.5); Neutrophils Absolute Auto 10.2 K/mm3 (1.3-6.7); Neutrophils Percent Auto 66.7 % (45.5-73.1); Platelet Count Result 136 k/mm3 (150-375); Red Blood Count 4.48 M/mm3 (4.2-5.4); Red Cell Distribution Width 13.5 % (11.5-14.5); White Blood Count 15.3 K/mm3 (4.5-10.0)
[2021-10-13] MEDS: ONDANSETRON INJ 4 MG/2 ML VIAL IV PUSH ×2 (04:53→09:44)
[2021-10-13] MEDS: SODIUM CHLORIDE 0.9% IV 1,000 ML 125 ML IV CONT (04:53)
[2021-10-13 04:54] LABS: Albumin Level 3.1 g/dL (3.5-5.1); Alkaline Phosphatase 119 U/L (38-126); Anion Gap 6 mmol/L (8-16); Bilirubin,Total 0.8 mg/dL (0.2-1.3); Blood Urea Nitrogen 27 mg/dL (7-17); Calcium 7.8 mg/dL (8.4-10.2); Carbon Dioxide 24 mmol/L (22-30); Chloride 96 mmol/L (98-107); Estimated CRCL calculation 70 ml/min; Estimated Glomerular Filt Rate 55; Glucose 92 mg/dL (65-110); Lipase 670 U/L (23-300); Potassium 4.9 mmol/L (3.4-5.0); Sodium 126 mmol/L (137-145)
[2021-10-13] MEDS: oxyCODONE HCL (*CRX) 5 MG TAB IR PO ×3 (04:54→17:43)
[2021-10-13 05:05] LABS: Alanine Aminotransferase 1027 U/L (6-35); Aspartate Amino Transferase 948 U/L (14-36)
[2021-10-13] MEDS: HYDROXYCHLOROQUINE SULFATE 200 MG TABLET PO (09:33)
[2021-10-13] MEDS: PANTOPRAZOLE 40 MG TABLET PO ×2 (09:34→20:45)
--- NOTE | 2021-10-13 10:15 | PM.PNCARD ---
Progress Note: A&P Assessment and Plan (1) Acute pericardial effusion: Code(s): I30.9 - Acute pericarditis, unspecified <LUL Huang - Last Filed: 10/13/21 10:47> Status: Acute <LUL Huang - Last Filed: 10/13/21 10:47> Assessment and Plan: TTE showed a small pericardial effusion. Probably secondary to SLE/RA syndrome. No further work up is indicated at this time. No cardiac recommendations to make. Cardiology will sign off. Please do not hesitate to contact us with any questions. <LUL Huang - Last Filed: 10/13/21 10:47> Additional Plan I discussed the patient management and reviewed Shannon Beasley's note and agree with findings and plan of care as documented in the note. <Jonn Oreilly MD - Last Filed: 10/13/21 12:10> Time Spent With Patient Time with patient: less than 15 minutes <Jonn Oreilly MD - Last Filed: 10/13/21 12:10> Subjective Date/time seen: 10/13/21 10:15 Cardiology follow up for pericardial effusion <LUL Huang - Last Filed: 10/13/21 10:47> Interval history: She is not feeling very well today. Has nausea and is very fatigued and sluggish. No cardiac complaints. <LUL Huang - Last Filed: 10/13/21 10:47> Date of service 10/13/2021-She is not feeling very well today. Has nausea and is very fatigued and sluggish. No cardiac complaints. <Jonn Oreilly MD - Last Filed: 10/13/21 12:10> Review of Systems Constitutional: Constitutional: Reports fatigue <LUL Huang - Last Filed: 10/13/21 10:47> Eyes: Eyes: Reports no additional eye complaints <LUL Huang - Last Filed: 10/13/21 10:47> ENT: Reports system reviewed and no additional complaints, except as documented <LUL Huang - Last Filed: 10/13/21 10:47> Cardiovascular: Cardiovascular: Reports no additional cardiovascular complaints <LUL Huang - Last Filed: 10/13/21 10:47> Respiratory: Respiratory: Reports no additional respiratory complaints <LUL Huang - Last Filed: 10/13/21 10:47> Gastrointestinal: Gastrointestinal: Reports as per HPI, Reports nausea and Reports vomiting <LUL Huang - Last Filed: 10/13/21 10:47> Musculoskeletal: Musculoskeletal: Reports no additional musculoskeletal complaints <LUL Huang - Last Filed: 10/13/21 10:47> Integumentary/Breasts: Skin/Breast: Reports system reviewed and no additional complaints, except as docu <LUL Huang - Last Filed: 10/13/21 10:47> Neurologic: Reports system reviewed and no additional complaints, except as documented <LUL Huang - Last Filed: 10/13/21 10:47> Endocrine: Endocrine: Reports no additional endocrine complaints and Reports fatigue <LUL Huang - Last Filed: 10/13/21 10:47> Hematologic/Lymphatic: Hematologic/Lymphatic: Reports no additional hematologic/lymphatic complaints <LUL Huang - Last Filed: 10/13/21 10:47> Allergic/Immunologic: Allergic/Immunologic: Reports no additional allergic/immunologic complaints <LUL Huang - Last Filed: 10/13/21 10:47> Exam Const: General: comfortable and no acute distress <LUL Huang - Last Filed: 10/13/21 10:47> Other: Pleasant overweight white female appearing her stated age no distress <LUL Huang - Last Filed: 10/13/21 10:47> HENMT: Mouth: Yes moist mucous membranes <LUL Huang - Last Filed: 10/13/21 10:47> Eyes: Sclera: sclerae normal <LUL Huang - Last Filed: 10/13/21 10:47> Neck: Neck: supple and no JVD <LUL Huang - Last Filed: 10/13/21 10:47> Other: Carotid pulses are intact bilaterally <LUL Huang - Last Filed: 10/13/21 10:47> Resp: Effort & Inspection: normal respiratory effort <LUL Huang - Last Filed: 10/13/21 10:47> Auscultation: clear to auscultation bilaterally <LUL Huang - Last Filed: 0
--- NOTE | 2021-10-13 11:14 | PM.IMPN ---
Progress Note: A&P Assessment and Plan (1) COVID-19: Code(s): U07.1 - COVID-19 Status: Acute Assessment and Plan: Patient is on room air and does not show any signs of congestion, URI symptoms nor hypoxia, not a candidate for remdesevir nor dexamethasone, supportive care (2) Acute hyponatremia: Code(s): E87.1 - Hypo-osmolality and hyponatremia Status: Acute Assessment and Plan: administer IVF, cont to monitor 10/13: Sodium improved to 126 with IV fluids, creatinine came down to 1.1 from 1.3, continue IV fluids, monitor (3) Pericardial effusion: Code(s): I31.3 - Pericardial effusion (noninflammatory) Status: Acute Assessment and Plan: likely 2/2 lupus, no intervention necessary, will need to notify rheum dr outpatient (4) Lupus (systemic lupus erythematosus): Code(s): M32.9 - Systemic lupus erythematosus, unspecified Status: Acute Assessment and Plan: cont home meds (5) Rheumatoid arthritis: Code(s): M06.9 - Rheumatoid arthritis, unspecified Status: Acute Assessment and Plan: cont home meds (6) Fibromyalgia: Code(s): M79.7 - Fibromyalgia Status: Acute Assessment and Plan: stable (7) Nausea and vomiting: Code(s): R11.2 - Nausea with vomiting, unspecified Status: Acute Assessment and Plan: could be 2/2 pancreatitis, GI c/s pending 10/13: GI consult pending, LFT significantly increased today, concerning for hepatitis, check right upper quadrant ultrasound and hepatitis panel, lipase also increased today, but not enough to explain symptoms, LFTs more significant, abdomen/pelvis CT yesterday only showed fatty liver (8) Thoracic outlet syndrome: Code(s): G54.0 - Brachial plexus disorders Status: Acute Assessment and Plan: post op TOS surgery, pain controlled, monitor (9) Lactic acidosis: Code(s): E87.2 - Acidosis Status: Acute Assessment and Plan: lactate still elevated, increase IV fluids and recheck Subjective Date/time seen: 10/13/21 11:14 Interval history: patient feels quite nauseated. She feels weak and is in some pain.? No overnight events noted.? No chest pain or shortness of breath.? No vomiting or diarrhea.? No fevers or chills. Review of Systems Review of Systems: ?12 point review of systems was assessed and was negative except as noted in the HPI Exam Narrative: General:? Appears uncomfortable, somewhat nauseated HEENT:? Atraumatic, normocephalic, mucous membranes moist CV:? Regular rate and rhythm, S1, S2 Lungs:? Clear to auscultation bilaterally, no rales or crackles noted, no wheezes, good air entry Abdomen:? Soft,? Significant tenderness to palpation of the abdomen Extremities:? Normal to inspection Skin:? No rashes noted, no lesions or wounds seen Psych:? Euthymic, normal affect Objective Data Vital Signs Vital Signs: Vital Signs - 24 hr 10/12/21 13:55 10/12/21 14:23 10/12/21 16:00 Temperature 97.8 F Pulse Rate 114 H 97 Respiratory Rate 20 16 Blood Pressure 102/83 93/64 L Pulse Oximetry 99 98 99 Oxygen Delivery Room Air 10/12/21 14:35 10/12/21 16:00 10/12/21 16:00 Temperature Pulse Rate 102 H Respiratory Rate Blood Pressure Pulse Oximetry Oxygen Delivery Room Air Room Air 10/12/21 18:00 10/12/21 15:00 10/12/21 20:00 Temperature 97.8 F Pulse Rate 96 97 96 Respiratory Rate 22 H Blood Pressure 111/62 Pulse Oximetry 97 Oxygen Delivery 10/12/21 21:44 10/12/21 20:00 10/12/21 23:34 Temperature 97.1 F L Pulse Rate 99 93 90 Respiratory Rate 20 Blood Pressure 103/72 Pulse Oximetry 99 Oxygen Delivery 10/12/21 22:00 10/13/21 00:00 10/13/21 00:00 Temperature Pulse Rate 98 94 94 Respiratory Rate Blood Pressure Pulse Oximetry 96 Oxygen Delivery Room Air 10/13/21 02:00 10/13/21 04:00 10/13/21 04:00 Temperature 97.5 F L
[2021-10-13 12:16] LABS: Lactic Acid Reflex 2.6 mmol/L (0.7-2.0)
[2021-10-13] MEDS: SODIUM CHLORIDE 0.9% IV 1,000 ML 150 ML IV CONT ×2 (12:43→19:08)
[2021-10-13] MEDS: NICOTINE (*PBKC) 21 MG PATCH 1 PATCH TRANSDERM (12:43)
[2021-10-13] MEDS: SCOPOLAMINE 1.5 MG PATCH TRANSDERM (12:47)
[2021-10-13 12:55] LABS: Hepatitis B Surface Antigen Negative (Negative)
[2021-10-13 13:01] LABS: HAV RESULT Negative (Negative); Hepatitis B Core IgM Result Negative (Negative)
[2021-10-13 13:13] LABS: Hepatitis C Virus Antibody Negative (Negative)
[2021-10-13 15:02] LABS: Reflex Lactic Acid Yes or No Add Lactic
[2021-10-13 15:40] LABS: Lactic Acid 2.4 mmol/L (0.7-2.0)
--- NOTE | 2021-10-13 16:34 | WPDGICN ---
Assessment and Plan Assessment and plan (1) Elevated liver enzymes: Code(s): R74.8 - Abnormal levels of other serum enzymes Status: Acute Assessment and Plan: most likely due to covid, hepatitis panel negative, imaging showed mild pancreatitis trend liver enzymes, no need to complete work up. I would suggest to repeat liver enzymes once acute infection is resolved denies alcohol history (2) COVID-19: Code(s): U07.1 - COVID-19 Status: Acute Assessment and Plan: probably cause of ongoing symptoms (3) Acute pancreatitis: Code(s): K85.90 - Acute pancreatitis without necrosis or infection, unspecified Status: Acute Assessment and Plan: monitor if no more nausea then will start liquid diet tomorrow (4) Nausea and vomiting: Code(s): R11.2 - Nausea with vomiting, unspecified Status: Acute Assessment and Plan: probably from covid and pancreatitis she had egd about 1 month ago (5) Thoracic outlet syndrome: Code(s): G54.0 - Brachial plexus disorders Status: Acute Assessment and Plan: s/p surgery (6) Acute hyponatremia: Code(s): E87.1 - Hypo-osmolality and hyponatremia Status: Acute (7) Pericardial effusion: Code(s): I31.3 - Pericardial effusion (noninflammatory) Status: Acute Assessment and Plan: by cardiology (8) Lupus (systemic lupus erythematosus): Code(s): M32.9 - Systemic lupus erythematosus, unspecified Status: Acute (9) Immunosuppressed status: Code(s): D84.9 - Immunodeficiency, unspecified Status: Acute Assessment and Plan: humira is on hold for now GI Consult Note Consult date/time: 10/13/21 16:34 Reason for consult: elevated liver enzymes, COVID, pancreatitis HPI: Kelsie Vaughn is a 40 year old female with history of lupus, RA on humira (last dose about 2 weeks ago) and recent thoracic outlet syndrome release surgery done at [place] on September 29 (initial symptom was numbness of the arm- surgery helped). She is here with new onset of nausea and vomiting for the last 3-4 days, unable to keep food down and also low-grade fever with chills. Mild epigastric discomfort, denies cough or respiratory symptom, no change in bowel habits. She had EGD and colonoscopy last month elsewhere because history of gerd. CT abdomen and pelvis reviewed and showed subtle peripancreatic stranding adjacent to the pancreatic head as well as a moderate pericardial effusion and hepatic steatosis.? Chest x-ray was done and showed no acute cardiopulmonary disease.?COVID-19 + and now she is on isolation, lipase ~ 600, transaminases 900-1000, normal bilirubin, wbc 15k. She denies history of pancreatitis, no alcohol use, no liver disease. Review of Systems Constitutional: Constitutional: Reports chills and Reports lethargy Eyes: Eyes: Denies blurry vision ENT: Reports Normal hearing present Cardiovascular: Cardiovascular: Denies lightheadedness Respiratory: Respiratory: Denies cough Gastrointestinal: Gastrointestinal: Reports nausea and Reports vomiting Genitourinary: Genitourinary: Denies hematuria Musculoskeletal: Musculoskeletal: Reports back pain Comments: recent right shoulder surgery Neurologic: Denies confusion Psychiatric: Psychiatric: Denies anxiety [facility] Past Medical History Medical History (Updated 10/13/21 @ 16:43 by Kamari López MD) Elevated liver enzymes Immunosuppressed status Thoracic outlet syndrome Surgical History Surgical History History of cholecystectomy Family History Family History Other Hypertension Social History Social History Smoking packs per day: 0.5 Smoking cigarettes per day: 10.0 Years smoked: 20 Smoking pack-years: 10.00 Smoking status: C
[2021-10-13 19:01] LABS: Basophils Percent Auto 0.3 % (0.2-1.2); Eosinophils Absolute Auto 0.1 K/mm3 (0-0.3); Eosinophils Percent Auto 0.7 % (0-4.4); Hematocrit 38.1 % (37.0-47.0); Hemoglobin 12.2 g/dL (12.0-15.0); Immature Granulocyte Absolute 0.14 K/mm3 (0.00-0.031); Immature Platelet Fraction Pct 20.1 % (0.9-11.2); Lymphocytes Absolute Auto 2.97 K/mm3 (0.9-3.2); Lymphocytes Percent Auto 21.2 % (18.3-44.2); Mean Corpuscular Volume 93.8 fl (80-100); Mean Platelet Volume 13.2 fl (7.4-10.4); Neutrophils Absolute Auto 9.8 K/mm3 (1.3-6.7); Neutrophils Percent Auto 69.8 % (45.5-73.1); Platelet Count Result 139 k/mm3 (150-375); Red Blood Count 4.06 M/mm3 (4.2-5.4); Red Cell Distribution Width 13.6 % (11.5-14.5)
[2021-10-13 19:24] LABS: Albumin Level 2.9 g/dL (3.5-5.1); Alkaline Phosphatase 127 U/L (38-126); Anion Gap 8 mmol/L (8-16); Aspartate Amino Transferase 583 U/L (14-36); Bilirubin,Total 0.9 mg/dL (0.2-1.3); Blood Urea Nitrogen 24 mg/dL (7-17); Calcium 7.2 mg/dL (8.4-10.2); Carbon Dioxide 19 mmol/L (22-30); Chloride 97 mmol/L (98-107); Estimated CRCL calculation 95 ml/min; Estimated Glomerular Filt Rate > 60; Glucose 102 mg/dL (65-110); Potassium 4.4 mmol/L (3.4-5.0); Sodium 124 mmol/L (137-145)
[2021-10-13] MEDS: METOPROLOL SUCCINATE EXT REL 25 MG TABCR PO (20:44)
[2021-10-13] MEDS: MAGNESIUM OXIDE 400 MG TABLET PO (20:45)
[2021-10-13] MEDS: ATORVASTATIN 20 MG TABLET PO (20:45)
[2021-10-13 20:54] LABS: Alanine Aminotransferase 878 U/L (6-35)
[2021-10-14] VITALS (11 sets, daily range): BP systolic 105–111; BP diastolic 50–70; PULSE 70–90; RESP 18–20; TEMP 36.6–37.7; O2SAT 97–100
[2021-10-14] MEDS: SODIUM CHLORIDE 0.9% IV 1,000 ML 150 ML IV CONT ×2 (01:38→09:04)
[2021-10-14] MEDS: oxyCODONE HCL (*CRX) 5 MG TAB IR PO ×3 (01:42→20:16)
[2021-10-14] MEDS: PANTOPRAZOLE 40 MG TABLET PO ×2 (09:05→20:17)
[2021-10-14] MEDS: NICOTINE (*PBKC) 21 MG PATCH 1 PATCH TRANSDERM (09:05)
--- NOTE | 2021-10-14 12:56 | PM.IMPN ---
Progress Note: A&P Assessment and Plan (1) COVID-19: Code(s): U07.1 - COVID-19 Status: Acute Assessment and Plan: Patient is on room air and does not show any signs of congestion, URI symptoms nor hypoxia, not a candidate for remdesevir nor dexamethasone, supportive care (2) Acute hyponatremia: Code(s): E87.1 - Hypo-osmolality and hyponatremia Status: Acute Assessment and Plan: Admission sodium 123 baseline sodium normal prior to this. Sodium stable (3) Pericardial effusion: Code(s): I31.3 - Pericardial effusion (noninflammatory) Status: Acute Assessment and Plan: likely 2/2 lupus, no intervention necessary, will need to notify rheum dr outpatient (4) Lupus (systemic lupus erythematosus): Code(s): M32.9 - Systemic lupus erythematosus, unspecified Status: Acute Assessment and Plan: cont home meds (5) Rheumatoid arthritis: Code(s): M06.9 - Rheumatoid arthritis, unspecified Status: Acute Assessment and Plan: cont home meds MR a last dose 2 weeks ago (6) Fibromyalgia: Code(s): M79.7 - Fibromyalgia Status: Acute Assessment and Plan: stable (7) Nausea and vomiting: Code(s): R11.2 - Nausea with vomiting, unspecified Status: Acute Assessment and Plan: could be 2/2 pancreatitis on 10/13/21 GI consulted Right upper quadrant ultrasound with no abnormality noted CT abdomen with hepatic steatosis Hepatitis panel negative (8) Thoracic outlet syndrome: Code(s): G54.0 - Brachial plexus disorders Status: Acute Assessment and Plan: post op TOS surgery, pain controlled, monitor (9) Lactic acidosis: Code(s): E87.2 - Acidosis Status: Acute Assessment and Plan: Elevated lactic acidosis mild persistent. Recheck labs again today Plan Mild thrombocytopenia Subjective Date/time seen: 10/14/21 12:56 Interval history: 10/14/2021 discussed with the nursing staff. Patient seen and examined. Vitals reviewed. Labs reviewed. Nausea has improved. Tolerating clear liquid diet today. Feeling tired surgery was 29 September Review of Systems Review of Systems: All systems reviewed & are unremarkable except as noted in HPI and below Exam Narrative: General:? Appears tired not in acute distress HEENT:? Atraumatic, normocephalic, mucous membranes moist CV:? Regular rate and rhythm, S1, S2 Lungs:? Clear to auscultation bilaterally, no rales or crackles noted, no wheezes, good air entry Abdomen:? Soft,?nontender mildly distended no organomegaly Extremities:? Normal to inspection no edema cyanosis clubbing Skin:? No rashes noted, no lesions or wounds seen Psych:? Euthymic, normal affect Objective Data Vital Signs Vital Signs: Vital Signs - 24 hr 10/13/21 14:00 10/13/21 16:00 10/13/21 16:00 Temperature 97.9 F Pulse Rate 88 93 83 Respiratory Rate 18 Blood Pressure 115/74 Pulse Oximetry 98 Oxygen Delivery 10/13/21 18:00 10/13/21 20:00 10/13/21 20:44 Temperature 98.1 F Pulse Rate 85 97 78 Respiratory Rate 20 Blood Pressure 98/66 L Pulse Oximetry 96 Oxygen Delivery 10/13/21 20:00 10/13/21 20:00 10/13/21 22:00 Temperature Pulse Rate 84 84 76 Respiratory Rate 20 Blood Pressure Pulse Oximetry 96 Oxygen Delivery Room Air 10/13/21 23:54 10/14/21 00:00 10/14/21 00:00 Temperature 98.0 F Pulse Rate 75 77 77 Respiratory Rate 20 20 Blood Pressure 110/70 Pulse Oximetry 100 100 Oxygen Delivery Room Air 10/14/21 02:00 10/14/21 04:00 10/14/21 04:00 Temperature Pulse Rate 78 77 77 Respiratory Rate 20 Blood Pressure Pulse Oximetry 100 Oxygen Delivery Room Air 10/14/21 04:00 10/14/21 05:41 10/14/21 08:00 Temperature 98.1 F 97.8 F Pulse Rate 76 72 70 Respiratory Rate 20 20 Blood Pressure 105/70 111/60 Pulse Oximetry 97 98 Oxygen Delivery 10/14/21 08:00 Temperat
[2021-10-14 14:06] LABS: Basophils Percent Auto 0.3 % (0.2-1.2); Eosinophils Absolute Auto 0.2 K/mm3 (0-0.3); Eosinophils Percent Auto 1.6 % (0-4.4); Hematocrit 38.2 % (37.0-47.0); Hemoglobin 12.2 g/dL (12.0-15.0); Immature Granulocyte Absolute 0.14 K/mm3 (0.00-0.031); Immature Granulocyte Percent A 1.2 % (0-0.5); Immature Platelet Fraction Pct 18.1 % (0.9-11.2); Lymphocytes Absolute Auto 2.23 K/mm3 (0.9-3.2); Lymphocytes Percent Auto 19.2 % (18.3-44.2); Mean Corpuscular HGB Conc 31.9 g/dl (32-36); Mean Corpuscular Hemoglobin 30.4 pg (26-34); Mean Corpuscular Volume 95.3 fl (80-100); Mean Platelet Volume 13.4 fl (7.4-10.4); Monocytes Absolute Auto 0.7 K/mm3 (0.1-0.6); Monocytes Percent Auto 6.2 % (2.6-8.5); Neutrophils Absolute Auto 8.3 K/mm3 (1.3-6.7); Neutrophils Percent Auto 71.5 % (45.5-73.1); Platelet Count Result 146 k/mm3 (150-375); Red Blood Count 4.01 M/mm3 (4.2-5.4); White Blood Count 11.6 K/mm3 (4.5-10.0)
[2021-10-14 14:20] LABS: Lactic Acid Reflex 2.3 mmol/L (0.7-2.0)
[2021-10-14 14:21] LABS: Lipase 396 U/L (23-300)
[2021-10-14 14:27] LABS: Alanine Aminotransferase 671 U/L (6-35); Albumin Level 2.8 g/dL (3.5-5.1); Alkaline Phosphatase 133 U/L (38-126); Anion Gap 7 mmol/L (8-16); Aspartate Amino Transferase 331 U/L (14-36); Bilirubin,Total 0.8 mg/dL (0.2-1.3); Blood Urea Nitrogen 15 mg/dL (7-17); Calcium 7.3 mg/dL (8.4-10.2); Carbon Dioxide 20 mmol/L (22-30); Chloride 103 mmol/L (98-107); Creatine Kinase 129 U/L (30-135); Estimated CRCL calculation 95 ml/min; Estimated Glomerular Filt Rate > 60; Glucose 107 mg/dL (65-110); Magnesium 2.3 mg/dL (1.6-2.3); Potassium 3.7 mmol/L (3.4-5.0); Sodium 130 mmol/L (137-145)
[2021-10-14] MEDS: SODIUM CHLORIDE 0.9% IV 1,000 ML 70 ML IV CONT (14:47)
[2021-10-14 17:02] LABS: Reflex Lactic Acid Yes or No Add Lactic
--- NOTE | 2021-10-14 17:50 | WPDGIPROGNO ---
Progress Note: A&P Assessment and Plan (1) Elevated liver enzymes: Code(s): R74.8 - Abnormal levels of other serum enzymes Status: Acute Assessment and Plan: multifactorial but probably from covid and pancreatitis trending down (2) Acute pancreatitis: Code(s): K85.90 - Acute pancreatitis without necrosis or infection, unspecified Status: Acute Assessment and Plan: s/p cholecystectomy on liquid diet, advance as tolerated medical support (3) COVID-19: Code(s): U07.1 - COVID-19 Status: Acute Assessment and Plan: on isolation by primary team (4) Acute hyponatremia: Code(s): E87.1 - Hypo-osmolality and hyponatremia Status: Acute Assessment and Plan: improving (5) Acute renal insufficiency: Code(s): N28.9 - Disorder of kidney and ureter, unspecified Status: Acute (6) Immunosuppressed status: Code(s): D84.9 - Immunodeficiency, unspecified Status: Acute (7) Pericardial effusion: Code(s): I31.3 - Pericardial effusion (noninflammatory) Status: Acute Subjective Date/time seen: 10/14/21 17:50 Interval history: she just feels tired, slowly better and tolerating liquid diet Review of Systems Review of Systems: All systems reviewed & are unremarkable except as noted in HPI and below Exam Const: General: no acute distress HENMT: General nose exam: Normal nares present Eyes: General: appearance normal, both eyes and all related structures Neck: Neck: supple Chest: Other: recent surgery in right side chest Resp: Auscultation: clear to auscultation bilaterally Cardio: Rate: regular rate GI: GI Palp: Yes Soft to palpation, No Tenderness to palpation present (GI) and No Guarding due to palpation present (GI) Auscultation: normal bowel sounds Neuro: Speech: normal speech Extrem: General: normal to inspection Psych: Mental Status: mental status grossly normal Objective Data Vital Signs Vital Signs: Vital Signs - 24 hr 10/13/21 18:00 10/13/21 20:00 10/13/21 20:44 Temperature 98.1 F Pulse Rate 85 97 78 Respiratory Rate 20 Blood Pressure 98/66 L Pulse Oximetry 96 Oxygen Delivery 10/13/21 20:00 10/13/21 20:00 10/13/21 22:00 Temperature Pulse Rate 84 84 76 Respiratory Rate 20 Blood Pressure Pulse Oximetry 96 Oxygen Delivery Room Air 10/13/21 23:54 10/14/21 00:00 10/14/21 00:00 Temperature 98.0 F Pulse Rate 75 77 77 Respiratory Rate 20 20 Blood Pressure 110/70 Pulse Oximetry 100 100 Oxygen Delivery Room Air 10/14/21 02:00 10/14/21 04:00 10/14/21 04:00 Temperature Pulse Rate 78 77 77 Respiratory Rate 20 Blood Pressure Pulse Oximetry 100 Oxygen Delivery Room Air 10/14/21 04:00 10/14/21 05:41 10/14/21 08:00 Temperature 98.1 F 97.8 F Pulse Rate 76 72 70 Respiratory Rate 20 20 Blood Pressure 105/70 111/60 Pulse Oximetry 97 98 Oxygen Delivery 10/14/21 08:00 10/14/21 12:00 10/14/21 08:00 Temperature 99.9 F H Pulse Rate 80 87 Respiratory Rate 18 Blood Pressure 109/66 Pulse Oximetry 98 Oxygen Delivery Room Air 10/14/21 10:00 10/14/21 12:00 10/14/21 16:00 Temperature 98.8 F Pulse Rate 88 82 90 Respiratory Rate 20 Blood Pressure 110/67 Pulse Oximetry 100 Oxygen Delivery Intake/Output Intake/Output: Intake & Output 10/11/21 10/12/21 10/13/21 10/14/21 23:59 23:59 23:59 23:59 Intake Total 3050 3710 6090 Output Total 949 267 3490 Balance 2750 3010 5090 Meds/Results Medications: Active Medications Generic Name Dose Route Start Last Admin Trade Name Freq PRN Reason Stop Dose Admin Albuterol 1 - 2 puff 10/12/21 16:43 Albuterol Sulfate (*Sp) Aerosol 1 Puff INHALATION Q4-6H PRN Shortness Of Breath Atorvastatin Calcium 20 mg 10/12/21 21:00 10/13/21 20:45 Atorvastatin 20 Mg Tablet PO 20 mg HS KARI Administration Dicyclomine HCl
[2021-10-14 18:34] LABS: Lactic Acid 1.7 mmol/L (0.7-2.0)
[2021-10-14] MEDS: ATORVASTATIN 20 MG TABLET PO (20:16)
[2021-10-14] MEDS: MAGNESIUM OXIDE 400 MG TABLET PO (20:16)
[2021-10-14] MEDS: METOPROLOL SUCCINATE EXT REL 25 MG TABCR PO (20:17)
[2021-10-15 05:27] LABS: Basophils Percent Auto 0.4 % (0.2-1.2); Eosinophils Absolute Auto 0.2 K/mm3 (0-0.3); Eosinophils Percent Auto 2.5 % (0-4.4); Hematocrit 35.8 % (37.0-47.0); Hemoglobin 11.3 g/dL (12.0-15.0); Immature Granulocyte Absolute 0.11 K/mm3 (0.00-0.031); Immature Granulocyte Percent A 1.3 % (0-0.5); Lymphocytes Percent Auto 15.7 % (18.3-44.2); Mean Corpuscular HGB Conc 31.6 g/dl (32-36); Mean Corpuscular Hemoglobin 30.1 pg (26-34); Mean Corpuscular Volume 95.5 fl (80-100); Mean Platelet Volume 12.8 fl (7.4-10.4); Monocytes Absolute Auto 0.8 K/mm3 (0.1-0.6); Neutrophils Absolute Auto 5.8 K/mm3 (1.3-6.7); Neutrophils Percent Auto 70.1 % (45.5-73.1); Nucleated Red Blood Cells Perc 0.2 % (0.0-0.2); Platelet Count Result 130 k/mm3 (150-375); Red Blood Count 3.75 M/mm3 (4.2-5.4); Red Cell Distribution Width 14.1 % (11.5-14.5); White Blood Count 8.3 K/mm3 (4.5-10.0)
[2021-10-15 05:37] LABS: Alanine Aminotransferase 519 U/L (6-35); Albumin Level 2.6 g/dL (3.5-5.1); Alkaline Phosphatase 115 U/L (38-126); Anion Gap 6 mmol/L (8-16); Aspartate Amino Transferase 180 U/L (14-36); Bilirubin,Total 0.8 mg/dL (0.2-1.3); Blood Urea Nitrogen 12 mg/dL (7-17); Calcium 7.5 mg/dL (8.4-10.2); Carbon Dioxide 25 mmol/L (22-30); Chloride 103 mmol/L (98-107); Estimated CRCL calculation 95 ml/min; Estimated Glomerular Filt Rate > 60; Glucose 84 mg/dL (65-110); Lipase 392 U/L (23-300); Potassium 3.5 mmol/L (3.4-5.0); Sodium 134 mmol/L (137-145)
[2021-10-15] MEDS: SODIUM CHLORIDE 0.9% IV 1,000 ML 70 ML IV CONT (07:00)
[2021-10-15 08:00] VITALS: BP 98/52; PULSE 82; RESP 14; TEMP 36.5; O2SAT 100
[2021-10-15] MEDS: NICOTINE (*PBKC) 21 MG PATCH 1 PATCH TRANSDERM (10:04)
[2021-10-15] MEDS: PANTOPRAZOLE 40 MG TABLET PO (10:05)
[2021-10-15] MEDS: oxyCODONE HCL (*CRX) 5 MG TAB IR PO (10:05)
[2021-10-15 15:43] VITALS: BP 91/64; PULSE 85; RESP 20; TEMP 36.7; O2SAT 100
--- NOTE | 2021-10-15 16:46 | PM.DS ---
DS: Admitting Diagnosis Discharge Date Admitting Diagnosis COVID infection DS: Discharge Diagnosis Discharge Diagnosis (1) COVID-19: Code(s): U07.1 - COVID-19 Status: Acute Assessment and Plan: Patient is on room air and does not show any signs of congestion, URI symptoms nor hypoxia, not a candidate for remdesevir nor dexamethasone, supportive care Slowly improving Tiredness main symptom that she is currently suffering. Continue to follow with PCP as an outpatient basis (2) Acute hyponatremia: Code(s): E87.1 - Hypo-osmolality and hyponatremia Status: Acute Assessment and Plan: Admission sodium 123 baseline sodium normal prior to this. Sodium stable in improving during the hospital stay. (3) Pericardial effusion: Code(s): I31.3 - Pericardial effusion (noninflammatory) Status: Acute Assessment and Plan: likely 2/2 lupus, no intervention necessary, will need to notify rheum dr outpatient Cardiology evaluated the patient during the admission (4) Lupus (systemic lupus erythematosus): Code(s): M32.9 - Systemic lupus erythematosus, unspecified Status: Acute Assessment and Plan: cont home meds (5) Rheumatoid arthritis: Code(s): M06.9 - Rheumatoid arthritis, unspecified Status: Acute Assessment and Plan: cont home meds MR a last dose 2 weeks ago (6) Fibromyalgia: Code(s): M79.7 - Fibromyalgia Status: Acute Assessment and Plan: stable (7) Nausea and vomiting: Code(s): R11.2 - Nausea with vomiting, unspecified Status: Acute Assessment and Plan: could be 2/2 pancreatitis on 10/13/21 GI consulted Right upper quadrant ultrasound with no abnormality noted CT abdomen with hepatic steatosis Hepatitis panel negative LFTs continues to improve (8) Thoracic outlet syndrome: Code(s): G54.0 - Brachial plexus disorders Status: Acute Assessment and Plan: post op TOS surgery, pain controlled, monitor (9) Lactic acidosis: Code(s): E87.2 - Acidosis Status: Acute Assessment and Plan: Elevated lactic acidosis mild persistent. Recheck labs with improvement Plan Mild thrombocytopenia DS: Summary Hospital Course Hospital Course: see above Time Spent with Patient Time attestation: Total time spent providing and/or coordinating discharge services: 45 minutes Exam Narrative: General:? Appears tired not in acute distress HEENT:? Atraumatic, normocephalic, mucous membranes moist CV:? Regular rate and rhythm, S1, S2 Lungs:? Clear to auscultation bilaterally, no rales or crackles noted, no wheezes, good air entry Abdomen:? Soft,?nontender mildly distended no organomegaly Extremities:? Normal to inspection no edema cyanosis clubbing Skin:? No rashes noted, no lesions or wounds seen Psych:? Euthymic, normal affect DS: Data Data Completed and Pending Labs on day of discharge: Labs from last 24 hours 10/15/21 10/15/21 10/14/21 04:43 04:43 18:08 WBC 8.3 RBC 3.75 L Hgb 11.3 L Hct 35.8 L MCV 95.5 MCH 30.1 MCHC 31.6 L RDW 14.1 Plt Count 130 L MPV 12.8 H Immature Gran % (Auto) 1.3 H Neut % (Auto) 70.1 Lymph % (Auto) 15.7 L Delta % (Auto) 10.0 H Eos % (Auto) 2.5 Baso % (Auto) 0.4 Lymph # (Auto) 1.30 Delta # (Auto) 0.8 H Eos # (Auto) 0.2 Baso # (Auto) 0.0 Abs Immat Gran (auto) 0.11 H Absolute Neuts (auto) 5.8 Absolute Nucleated RBC 0.0 Nucleated RBC % 0.2 Sodium 134 L Potassium 3.5 Chloride 103 Carbon Dioxide 25 Anion Gap 6 L BUN 12 Creatinine 0.80 Estim Creat Clear Calc 95 Estimated GFR > 60 Glucose 84 Lactic Acid 1.7 Calcium 7.5 L Total Bilirubin 0.8 AST 180 H ALT 519 H Alkaline Phosphatase 115 Total Protein 5.0 L Albumin 2.6 L Lipase 392 H Preliminary micro results at discharge
== END 2021-10-15 17:41 | disposition home or self-care (01) | DRG 177 ==
LOC: ANHED 08:56 → ANHIMU 13:38
PROVIDERS: Student in an Organized Health Care Education/Training Program; Admitting Provider Family Medicine; Emergency Provider Emergency Medicine; PCP Physician Assistant; Visit Provider Internal Medicine
DX: U07.1 COVID-19 (principal); K85.90 Acute pancreatitis without necrosis or infection, unspecified; E87.1 Hypo-osmolality and hyponatremia; M32.12 Pericarditis in systemic lupus erythematosus; E87.2 Acidosis; M06.9 Rheumatoid arthritis, unspecified; M32.9 Systemic lupus erythematosus, unspecified; G54.0 Brachial plexus disorders; N28.9 Disorder of kidney and ureter, unspecified; D69.6 Thrombocytopenia, unspecified; F17.210 Nicotine dependence, cigarettes, uncomplicated; M79.7 Fibromyalgia; K76.0 Fatty (change of) liver, not elsewhere classified; R74.01 Elevation of levels of liver transaminase levels; Z98.890 Other specified postprocedural states; Z90.49 Acquired absence of other specified parts of digestive tract; Z79.52 Long term (current) use of systemic steroids; Z79.899 Other long term (current) drug therapy
CPT/HCPCS: 36415; 71045; 74177; 76705; 80053; 80074; 81001; 82550; 83605; 83690; 83735; 85025; 85055; 87040; 87086; 87088; 93005; 93306; 96361; 96374; 96375; 96376; 99285; A9270; C9803; G0378; J2270; J2405; J2550; J7030; Q9967; U0003; U0005

== ENCOUNTER 2021-10-17 12:14 | Emergency (ER) | payer BC, SELFPAY ==
--- NOTE | ~2021-10-17 | XR_ITS ---
EXAMINATION: XR chest 1V portable DATE: 10/17/2021 13:07 INDICATION: Dyspnea TECHNIQUE: frontal view of the chest was obtained. COMPARISON: Chest radiograph dated 10/12/2021 FINDINGS: Hazy opacity in the right lower lung zone with blunting at the costophrenic angles consistent with sm all right pleural effusion and associated basilar atelectasis versus less likely pneumonia. No pulmon carlos edema, pneumothorax or left-sided pleural effusion. The cardiomediastinal silhouette is normal. P artially visualized plate and screw fixation for lower cervical anterior spinal fusion. IMPRESSION: 1. Small right pleural effusion with associated right basilar atelectasis versus pneumonia. Reviewed, dictated and finalized at location A. IMPRESSION: 1. Small right pleural effusion with associated right basilar atelectasis versu s pneumonia.
--- NOTE | ~2021-10-17 | US_ITS ---
EXAMINATION: US venous doppler UE DATE: 10/17/2021 14:52 INDICATION: Swelling. TECHNIQUE: Grayscale ultrasound images without and with compression and Doppler ultrasound images of the left upper extremity veins were obtained. COMPARISON: None. FINDINGS: The visualized portions of the left internal jugular vein, subclavian vein, axillary vein, brachial v eins, basilic vein, upper cephalic vein, radial vein, and ulnar vein are patent. Noncompressible lowe r arm cephalic vein, with echogenic intraluminal filling defect. IMPRESSION: 1. Acute DVT in the lower cephalic vein from the elbow to the wrist. Reviewed, dictated and finalized at location K.
--- NOTE | ~2021-10-17 | US_ITS ---
EXAMINATION: US venous doppler [facility] DATE: 10/17/2021 14:52 INDICATION: swelling . TECHNIQUE: Grayscale images without and with compression and Doppler images of the bilateral lower ex tremity veins were obtained. COMPARISON: None FINDINGS: The right common femoral vein, profunda (deep) femoral vein, femoral vein, popliteal vein, peroneal v ein, posterior tibial veins, gastrocnemius vein, and greater saphenous vein are patent. The left common femoral vein, profunda femoral vein, femoral vein, popliteal vein, peroneal vein, pos terior tibial veins, gastrocnemius vein, and greater saphenous vein are patent. IMPRESSION: 1. Patent bilateral lower extremity veins. No evidence of deep venous thrombosis. Reviewed, dictated and finalized at location K. IMPRESSION: 1. Patent bilateral lower extremity veins. No evidence of deep venous thrombos is.
--- NOTE | ~2021-10-17 | CT_ITS ---
EXAMINATION: CTA chest PE protocol DATE: 10/17/2021 15:59 INDICATION: SOA TECHNIQUE: Computed tomography angiography (CTA) of the chest was performed with 100 mL Omnipaque-350 intravenous contrast timed to evaluate the pulmonary arteries. Coronal maximum intensity projection 3D-reconstructions were created by the technologist. The dose-length product (DLP) was 990.04 mGy-cm. Automated exposure control and iterative reconstruction technique were employed. COMPARISON: X-ray chest, same date. FINDINGS: Lung parenchyma and airways: Dependent right atelectasis. Pleura: Moderate volume right pleural effusion. Thoracic inlet, axillae and chest wall: Unremarkable. Thoracic aorta: Normal. Mediastinum: Normal. Heart and pericardium: Normal. Coronary artery calcifications: Absent. Upper abdomen: Left adrenal adenoma. Bones: No acute osseous finding. Pulmonary arteries: Study quality: Adequate. No pulmonary emboli detected. IMPRESSION: No CT evidence of acute pulmonary embolus. Moderate right pleural effusion with adjacent atelectasis. Reviewed, dictated and finalized at location K.
--- NOTE | 2021-10-17 12:17 | ECG_ITS ---
Measurements Intervals [place] Rate: 86 P: 53 RI: 138 QRS: 63 QRSD: 68 T: 30 QT: 359 QTc: 431 Interpretive Statements SINUS RHYTHM LOW QRS VOLTAGE- DIFFUSE LEADS ANTEROSEPTAL INFARCT, AGE INDETERMINATE BORDERLINE ST-T WAVE ABNORMALITY- INFERIOR LEADS BASELINE ARTIFACT- I, II, AVR, AVL, AVF, V1-V2, V4-V5 ABNORMAL ECG Electronically Signed On 10-17-2021 16:38:17 CDT by Shar Mo D.O.
[2021-10-17 12:24] VITALS: BP 118/73; PULSE 98; RESP 16; TEMP 36.1; O2SAT 100
[2021-10-17 13:09] VITALS: PULSE 81
[2021-10-17 13:36] LABS: Basophils Percent Auto 0.3 % (0.2-1.2); Eosinophils Absolute Auto 0.5 K/mm3 (0-0.3); Eosinophils Percent Auto 4.5 % (0-4.4); Hematocrit 38.6 % (37.0-47.0); Hemoglobin 12.3 g/dL (12.0-15.0); Immature Granulocyte Absolute 0.08 K/mm3 (0.00-0.031); Immature Granulocyte Percent A 0.8 % (0-0.5); Lymphocytes Absolute Auto 1.66 K/mm3 (0.9-3.2); Lymphocytes Percent Auto 16.6 % (18.3-44.2); Mean Corpuscular HGB Conc 31.9 g/dl (32-36); Mean Corpuscular Hemoglobin 30.1 pg (26-34); Mean Corpuscular Volume 94.4 fl (80-100); Mean Platelet Volume 12.2 fl (7.4-10.4); Monocytes Absolute Auto 0.9 K/mm3 (0.1-0.6); Monocytes Percent Auto 8.8 % (2.6-8.5); Neutrophils Absolute Auto 6.9 K/mm3 (1.3-6.7); Platelet Count Result 260 k/mm3 (150-375); Red Blood Count 4.09 M/mm3 (4.2-5.4); Red Cell Distribution Width 14.6 % (11.5-14.5)
--- NOTE | 2021-10-17 13:37 | ED.GENADULT ---
HPI - General Adult General Chief complaint: Shortness of Breath/Dyspnea Stated complaint: sob Time Seen by Provider: 10/17/21 12:18 History of Present Illness HPI narrative: Patient is a 40-year-old female who presents to the ER with concerns of lower extremity swelling. Worse in the last 24 hours. Contacted her PCP because she wanted diuretic but given the fact that patient has had recent hospitalization and is more complex they wanted the patient evaluated in the ER. Patient's had recent thoracic outlet syndrome surgery on the right side. She then developed COVID and was evaluated for pericardial effusion. The effusion is related to patient's lupus. Patient is having no chest pain or difficulty breathing. She does note that she started developing some pain in her left forearm with swelling in her hand today. No longer having fevers or chills. Related Data Home Medications Medication Instructions Recorded Confirmed adalimumab 40 mg/0.4 mL 40 mg subcut WEEKLY 10/12/21 10/12/21 subcutaneous pen kit (Humira(CF) Pen) albuterol sulfate 90 mcg/actuation 1 - 2 puff inhalation Q4-6H PRN 10/12/21 10/12/21 aerosol inhaler Shortness Of Breath dicyclomine 20 mg tablet 20 mg PO HS PRN Abdominal Pain 10/12/21 10/12/21 hydroxychloroquine 200 mg tablet 200 mg PO Q12H 10/12/21 10/12/21 magnesium oxide 400 mg (241.3 mg 400 mg PO 199910/12/21 10/12/21 magnesium) tablet methocarbamol 500 mg tablet 500 mg PO Q8H PRN Muscle Spasm 10/12/21 10/12/21 metoprolol succinate 50 mg 25 mg PO HS 10/12/21 10/12/21 tablet,extended release 24 hr omeprazole 40 mg capsule,delayed 40 mg PO Q12H 10/12/21 10/12/21 release ondansetron 4 mg disintegrating 4 mg PO Q8H PRN Nausea And Vomiting 10/12/21 10/12/21 tablet oxycodone 5 mg tablet 5 mg PO Q4H PRN Pain 10/12/21 10/12/21 prednisone 5 mg tablet 5 mg PO Q12H PRN Pain 10/12/21 10/12/21 tizanidine 4 mg tablet 4 mg PO Q6H 10/12/21 10/12/21 Allergies Allergy/AdvReac Type Severity Reaction Status Date / Time acetaminophen [From Tylenol] Allergy Itching Verified 10/17/21 12:29 Review of Systems Review of Systems: All systems reviewed & are unremarkable except as noted in HPI and below Constitutional: Constitutional: Denies chills, Denies fatigue and Denies fever(s) ENT: Denies nasal congestion and Denies sore throat Cardiovascular: Cardiovascular: Denies chest pain, Denies rapid heart rate and Denies radiating jaw, neck or arm pain Respiratory: Respiratory: Denies dyspnea and Denies wheezing Gastrointestinal: Gastrointestinal: Denies abdominal pain, Denies nausea and Denies vomiting Musculoskeletal: Musculoskeletal: Denies arthralgias and Denies joint swelling Comments: Lower extremity edema and left upper extremity edema. [facility] Past Medical History Medical History (Updated 10/17/21 @ 17:16 by Markus Benitez MD) Elevated liver enzymes Immunosuppressed status Thoracic outlet syndrome Surgical History Surgical History History of cholecystectomy Family History Family History Other Hypertension Social History Social History Smoking packs per day: 0.5 Smoking cigarettes per day: 10.0 Years smoked: 20 Smoking pack-years: 10.00 Smoking status: Current every day smoker Tobacco type: cigarettes Alcohol intake: never Substance use: current Substance use type: marijuana Last use: couple weeks ago Gender identity (if verbalized by the patient): Female Spiritual care concerns: No Exam Narrative: GENERAL: Well-appearing, well-nourished, and in no acute distress. HEAD: Normocephalic, atraumatic. EYES: PERRL and EOMI. CHEST: Clear to auscultation. No respiratory distress. HEART: Regular rate and rhythm. Normal peripheral pulses. ABDOMEN: Soft, nontender, nondistended. EXTREMITIES
[2021-10-17 13:46] LABS: Alanine Aminotransferase 222 U/L (6-35); Albumin Level 3.3 g/dL (3.5-5.1); Alkaline Phosphatase 108 U/L (38-126); Anion Gap 8 mmol/L (8-16); Aspartate Amino Transferase 38 U/L (14-36); Blood Urea Nitrogen 6 mg/dL (7-17); Calcium 8.3 mg/dL (8.4-10.2); Carbon Dioxide 26 mmol/L (22-30); Chloride 105 mmol/L (98-107); Estimated Glomerular Filt Rate > 60; Glucose 103 mg/dL (65-110); Potassium 2.9 mmol/L (3.4-5.0); Sodium 139 mmol/L (137-145)
--- NOTE | 2021-10-17 13:47 | PC.NURSE ---
Urinary catheter order made inactive due to incorrect patient.
[2021-10-17 13:49] LABS: INR 1.3; Prothrombin Time 15.4 Seconds (11.1-14.7)
[2021-10-17 13:50] LABS: Partial Thromboplastin Time 27.7 SECONDS (22.3-36.8)
[2021-10-17 13:54] LABS: NT Pro B Type Natriuretic Pept 3210 pg/mL (5-100)
[2021-10-17 14:25] VITALS: BP 142/86; PULSE 78; RESP 16; O2SAT 98
[2021-10-17 16:30] VITALS: BP 130/89; PULSE 91; RESP 20; O2SAT 100
[2021-10-17] MEDS: POTASSIUM CHLORIDE 20 MEQ TABLET 40 MEQ PO (17:23)
[2021-10-17] MEDS: FUROSEMIDE INJ 40 MG/4 ML VIAL IV PUSH (17:23)
[2021-10-17 17:28] VITALS: BP 130/86; PULSE 87; RESP 19; O2SAT 98
== END 2021-10-17 18:08 | disposition home or self-care (01) ==
PROVIDERS: Emergency Provider Emergency Medicine; PCP Physician Assistant
DX: I82.622 Acute embolism and thrombosis of deep veins of left upper extremity (principal); D84.9 Immunodeficiency, unspecified; Z86.16 Personal history of COVID-19; F17.210 Nicotine dependence, cigarettes, uncomplicated; J90 Pleural effusion, not elsewhere classified; R91.8 Other nonspecific abnormal finding of lung field; R94.31 Abnormal electrocardiogram [ECG] [EKG]
CPT/HCPCS: 36415; 51702; 71045; 71275; 80053; 83880; 85025; 85610; 85730; 93005; 93970; 93971; 96374; 99284; A9270; J1940; Q9967

== ENCOUNTER → 2021-10-27 08:57 | Outpatient (CLI) | payer BC, SELFPAY ==
--- NOTE | ~2021-10-27 | XR_ITS ---
EXAMINATION: XR chest 2V 10/27/2021 09:23 INDICATION: Shortness of breath. Pleural effusion. PROCEDURE: 2 view chest COMPARISON: Comparison to multiple prior studies sequentially, with oldest reviewed study dated 10/09. FINDINGS: The lungs are clear. The cardiomediastinal silhouette is within normal limits. There are no pleural effusions. There is no pneumothorax suspected. IMPRESSION: 1: NO ACUTE CARDIOPULMONARY DISEASE. Reviewed, dictated and finalized at location A.
== END ==
PROVIDERS: PCP Physician Assistant; Visit Provider Physician Assistant
DX: J90 Pleural effusion, not elsewhere classified (principal)
CPT/HCPCS: 71046

== ENCOUNTER → 2022-03-31 08:32 | Outpatient (CLI) | payer BC, SELFPAY ==
--- NOTE | ~2022-03-31 | MR_ITS ---
EXAMINATION: MR ankle RT wo con DATE: 03/31/2022 09:19 INDICATION: Stress fracture with worsening anterior right ankle pain. TECHNIQUE: Magnetic resonance imaging (MRI) of the right ankle was performed without intravenous cont rast. Sequences included sagittal, coronal, and axial proton-density weighted fast spin echo without and with fat saturation. COMPARISON: None. FINDINGS: Medial ankle ligaments: Deep and superficial deltoid ligaments as well as the spring ligament are normal. Lateral ankle ligaments: The anterior and posterior inferior tibiofibular ligaments are normal. The anterior talofibular, calc aneofibular and posterior talofibular ligaments are normal. Tendons: Small enthesophytes at the calcaneal insertion of the normal Achilles tendon. The peroneus longus and brevis tendons are normal. There is a low-lying peroneus brevis muscle belly which extends approxima tely 1 cm distal to the tip of the lateral malleolus. The tibialis anterior and extensor hallucis linnea jeremy and extensor digitorum longus tendons are normal. The flexor digitorum longus and flexor hallucis longus tendons are normal. There are couple small ossicles at the distal tibialis posterior tendon, one at the insertion of the navicula consistent with a type I os tibiale externum and the second ossi jodi more laterally along the portion of the tendon extending towards the cuneiforms and base of the m etatarsals. There is a small amount of fluid signal surrounding the normal-appearing more proximal ti bialis tendon consistent with mild tenosynovitis. No marrow edema at the navicular or accessory ossic les. Plantar fascia: The plantar aponeurosis is normal. Bones/other: Bone alignment is normal. Normal marrow signal with no fracture or pathologic marrow replacing proces s. Mild osteoarthritis at the left cranial cuboid and a few of the tarsal metatarsal joints. No erosi ons to suggest inflammatory arthritis. Fluid: Visualized amount of fluid in the joint spaces. Nonspecific subcutaneous edema surrounding the distal greater saphenous vein at the ankle. There appear to be thickened dickson to the vessel at this level which could be seen with thrombophlebitis but with central low signal suggesting a residual patent ce ntral flow void. IMPRESSION: 1. Mild tenosynovitis along the distal otherwise normal-appearing tibialis posterior tendon. The amita er indicating the palpable abnormality of concern overlies the navicular insertion there is a small t ype I os tibiale externum. 2. Subcutaneous edema surrounding the distal greater saphenous vein at the ankle there appears be ass ociated wall thickening. Correlate clinically for possible thrombophlebitis. 3. Mild osteoarthritis at the calcaneocuboid and a few tarsal metatarsal joints. Reviewed, dictated and finalized at location A. [employer] IMPRESSION: 1. Mild tenosynovitis along the distal otherwise normal-appearing tibialis post erior tendon. The marker indicating the palpable abnormality of concern overlie s the navicular insertion there is a small type I os tibiale externum. 2. Subcutaneous edema surrounding the distal greater saphenous vein at the ankl e there appears be associated wall thickening. Correlate clinically for possibl e thrombophlebitis. 3. Mild osteoarthritis at the calcaneocuboid and a few tarsal metatarsal joints .
== END ==
PROVIDERS: PCP Physician Assistant; Visit Provider Podiatrist Foot & Ankle Surgery
DX: M84.374D Stress fracture, right foot, subsequent encounter for fracture with routine healing (principal); S93.431A Sprain of tibiofibular ligament of right ankle, initial encounter; X58.XXXA Exposure to other specified factors, initial encounter
CPT/HCPCS: 73721

== ENCOUNTER 2022-11-10 11:07 | Outpatient (CLI) | payer BC, SELFPAY ==
--- NOTE | ~2022-11-10 | CT_ITS ---
EXAMINATION: CT brain w con DATE: 11/10/2022 11:37 INDICATION: Unspecified visual disturbance. 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 TECHNIQUE: Computed tomography (CT) of the head was performed with 100 mL Omnipaque 350 intravenous c ontrast. The mA was adjusted according to patient size. Iterative reconstruction technique was employ ed. The dose-length product was 599.57 mGy-cm. COMPARISON: Head CT 05/10/15 FINDINGS: There is no intracranial hemorrhage, acute infarction, or abnormal intracranial mass lesion . The ventricles are normal in size. The orbits are normal. There is mucosal thickening in the parana tiny sinuses. The mastoid air cells are normal. IMPRESSION: 1. Normal brain. Reviewed, dictated and finalized at location A. IMPRESSION: 1. Normal brain.
--- NOTE | ~2022-11-10 | CT_ITS ---
EXAMINATION: CT orbit BI w con DATE: 11/10/2022 11:37 INDICATION: Unspecified visual disturbance. 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 TECHNIQUE: Computed tomography (CT) of the orbits was performed with 100 mL Omnipaque 350 intravenous contrast. Automated exposure control and iterative reconstruction technique were employed. The dose- length product was 219.90 mGy-cm. COMPARISON: Head CT 11/10/2022 FINDINGS: The ocular globes, optic nerves, and extraocular muscles are normal. There is no abnormal o rbital mass. There is mucosal thickening in the paranasal sinuses. IMPRESSION: 1. Normal orbits. Reviewed, dictated and finalized at location A. IMPRESSION: 1. Normal orbits.
== END 2022-11-10 11:08 ==
LOC: MICIMG 11:09
DX: H53.9 Unspecified visual disturbance (principal)
CPT/HCPCS: 70460; 70481; Q9967

== ENCOUNTER → 2023-11-23 14:12 | Outpatient (CLI) | payer BC, SELFPAY ==
--- NOTE | ~2023-11-23 | XR_ITS ---
EXAMINATION: XR thoracic spine 3V DATE: 11/23/2023 14:34 INDICATION: Chronic midline back pain without sciatica. TECHNIQUE: 3 views of thoracic spine were obtained. COMPARISON: Thoracic spine radiographs 05/05/2021 FINDINGS: There is 7 degrees levocurvature of thoracic spine. Vertebral body heights are normal. Inte rvertebral disc heights are normal. There are endplate osteophytes at a few levels. There are changes of anterior fusion procedure in cervical spine. Surgical clips in the right upper quadrant are likel y from cholecystectomy. IMPRESSION: 1. Mild thoracic spondylosis. Reviewed, dictated and finalized at location A.
--- NOTE | ~2023-11-23 | XR_ITS ---
EXAMINATION: XR lumbar spine 2-3V DATE: 11/23/2023 14:35 INDICATION: Chronic midline back pain without sciatica. TECHNIQUE: 3 views of lumbar spine including upright views were obtained. COMPARISON: Lumbar spine radiographs 05/05/2021 FINDINGS: There is 10 degrees levoscoliosis of lumbar spine. Vertebral body heights and intervertebra l disc heights are normal. There are endplate osteophytes at most levels. There is multilevel mild-to -moderate facet joint osteoarthritis. Surgical clips in the right upper quadrant are likely from chol ecystectomy. IMPRESSION: 1. Mild lumbar spondylosis. 2. Lumbar levoscoliosis. Reviewed, dictated and finalized at location A.
== END ==
LOC: EXPCRAD 14:16
PROVIDERS: PCP Physician Assistant; Visit Provider Physician Assistant
DX: M47.896 Other spondylosis, lumbar region (principal); M47.894 Other spondylosis, thoracic region
CPT/HCPCS: 72072; 72100

== ENCOUNTER 2024-10-07 20:19 | Emergency (ER) | payer BC, SELFPAY ==
--- NOTE | ~2024-10-07 | CT_ITS ---
EXAMINATION: CT abdomen pelvis w con DATE: 10/08/2024 00:00 INDICATION: Right lower quadrant pain. TECHNIQUE: Computed tomography (CT) of the abdomen and pelvis was performed with 100 cc Omnipaque 350 intravenous contrast. The dose-length product was 629.95 mGy-cm. Automated exposure control and iter ative reconstruction technique were employed. COMPARISON: CT dated 10/12/2021. FINDINGS: No significant pleural or pericardial effusion. Heart size normal. No significant vascular abnormality adenopathy. Fatty infiltration of the liver. Status post cholecystectomy. Spleen, pancrea s, adrenal glands and kidneys are unremarkable. Bladder is moderately distended. No abnormal free flu id or free air. There are follicular changes in the ovaries. Nonobstructive bowel gas pattern. No sig nificant vascular abnormality. No lymphadenopathy. Right ovary is prominent. No acute osseous abnormality. IMPRESSION: 1. No acute abdominal abnormality. Reviewed, dictated and finalized at location A.
--- NOTE | ~2024-10-07 | US_ITS ---
EXAMINATION: US pelvic complete INDICATION: Multiple ovarian cysts. Rule out torsion. Comparison:CT dated 10/07/2024 TECHNIQUE: Multiple transabdominal and endovaginal sonographic images of the pelvis performed. FINDINGS: The uterus is surgically absent. The right ovary measures 5.1 x 3 x 4.1 cm and the left ovary measures 4.2 x 2.3 x 2.4 cm. There are small follicles in each ovary. Normal doppler signal in both ovaries. There is no free fluid in the pelvis. There are no abnormal masses seen on either side. IMPRESSION: 1. Unremarkable pelvic ultrasound. Reviewed, dictated and finalized at location A.
--- OUTSIDE RECORDS SUMMARY | 2024-10-07 20:21 | XMS_ITS | Encounter Summary ---
Author Organization [facility] Address [address] [place] [address] Care Team Providers Care Wood Miller Name Role Phone Monalisa John Primary Care Provider [phone] Elizabeth Alvarez NP Unavailable [phone] Encounter Details Date Type Department Care Team (Late st Contact Info) Description 08/12/2011 Orders Only [facility] Health Information Management [address] [place] [address] Scanning, Provider Social History Tobacco Use Types Packs/Day Years Used Date Smoking Tobacco: Never Assessed Comments Unknown Sex and Gender Information Value Date Recorded Sex Assigned at Not on file 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 Gender Identity Female 09/05/2020 9:47 AM CDT Sexual Orientation Straight 09/05/2020 9: 47 AM CDT documented as of this encounter Plan of Treatment Not on file documented as of this encounter Procedures Procedure Name Priority Date/Time Associated Diagnosis Comments SCAN - RADIOLOGY/IMAGING 08/12/2011 documented in this encounter Results * SCAN - RADIOLOGY/IMAGING (08/12/2011) Anatomical Region Laterality Modality Other us Provider Scanning Final Result documented in this encounter Visit Diagnoses Not on filedocumented in this encounter Additional Health Concerns Infection Onset Date Last Indicated Resolved Time COVID: Suspected 01/28/2021 01/28/2021 01/28/2021 5:41 PM ARMOR SENIOR SERGEANT COVID: Suspected 11/01/2023 11/01/202311/0111/02/2023 3:05 AM CDT documented as of this encounter Care Teams Wood Miller Relationship Specialty Start Date End Date Monalisa John PA [address] [place] [address] PCP - General Internal Medicine 08/22/18 Elizabeth Alvarez NP [address] [place] [address] Nurse Practitioner Urology 05/04/22 documented as of this encounter
--- OUTSIDE RECORDS SUMMARY | 2024-10-07 20:21 | XMS_ITS | Encounter Summary ---
Author Organization [facility] Healthcare Address [address] [place] [address] Care Team Providers Care Chief Embalmer Name Role Phone Monalisa John Primary Care Provider [phone]- [phone] Elizabeth Alvarez NP Unavailable [phone] Encounter Details Date Type Department Care Team (Late st Contact Info) Description 09/27/2024 Home Infusion [facility] Home Infusion Therapy [address] [place] [address] Kassidy Ashby Social History Tobacco Use Types Packs/Day Years Used Date Smoking Tobacco: Every Day Cigarettes 0.1 31.5 Started: 1998 Smokeless Tobacco: Never Alcohol Use Standard Drinks/Week Comments Never 0 (1 standard drink = 0.6 oz pur e alcohol) AUDIT-C Answer Date Recorded Frequency of Alcohol Consumption Not on file 11/23/2023 Q2: How many drinks containi ng alcohol do you have on a typical day when you are drinking? Patient does not drink Frequency of Binge Drinking Not on file 06/2023 PHQ-2 Answer Date Recorded PHQ-2 Total Score (If total score is 3 or more points, staff should administer the PHQ-9) 0 12/26/2023 Personal Safety Answer Date Recorded Have you ever been in or are you currently in a harmful physical or emotional relationship or is someone making you feel afraid or unsafe? 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 Gender Identity Female 09/05/2020 9:47 AM CDT Sexual Orientation Straight 09/05/2020 9: 47 AM CDT Occupation Industry Job Start Date Job End Date Disabled Not on file Not on file Not on file documented as of this encounter Plan of Treatment Not on file documented as of this encounter Visit Diagnoses Not on filedocumented in this encounter Care Teams Chief Embalmer Relationship Specialty Start Date End Date Monalisa John PA [address] [place], [place] [id number] PCP - General Internal Medicine 08/22/18 Elizabeth Alvarez NP [address] [place] [address] Nurse Practitioner Urology 05/04/22 documented as of this encounter
--- OUTSIDE RECORDS SUMMARY | 2024-10-07 20:21 | XMS_ITS ---
Author Organization [facility] [address] Address [address] [place] [address] Care Team Providers Care Mounting Machine Operator Name Role Phone Monalisa John Primary Care Provider [phone] Elizabeth Alvarez NP Unavailable [phone] Specialty Therapies Status:Under Review (Active) Start date:09/18/2024 Enrollment date:09/18/2024 Related program episode:Home Infusion (Active) Continued Care and Services Coordination
--- OUTSIDE RECORDS SUMMARY | 2024-10-07 20:21 | XMS_ITS | Referral Summary ---
Author Organization [facility] [address] [facility] Address [address] [place] [address] Care Team Providers Care Professor Of Geology Name Role Phone Monalisa John Primary Care Provider [phone] Elizabeth Alvarez NP Unavailable [phone] Encounters Date Type Department Care Team Description 09/27/2024 Home Infusion [facility] Home Infusion Therapy [address] [place] [address] Kassidy Ashby 09/06/2024 Results Follow-Up [facility] Allergy and Immunology [address] [facility] Medical Office Building [address] [place] [address] Yannick Rincon MD Strep pneumoniae antibody serotypes, BLOOD MISC TO [facility] 08/30/2024 5:20 PM CDT - 08/30/2024 11:59 PM CDT Hospital Encounter [address] [address] Hypogammaglobulinemia; Recurrent sinus infections Discharge Disposition: Discharge to home or self care 08/30/2024 9:00 AM CDT Lab [facility] Medical [facility] Outpatient Lab at [address] [address] 07/31/2024 9:00 AM CDT Clinical Support [facility] Family Medicine [address] [facility] [address] [place] [address] Immunocompromised (Primary Dx); Other forms of systemic lupus erythematosus, unspecified organ involvement status (HCC); Need for vaccination for pneumococcus 07/26/2024 Results Follow-Up [facility] Allergy and Immunology [address] [facility] Office Building [address] [place] [id number] Yannick Rincon MD IgE, IgA, IgM, Additional followed-up results: 4 07/20/2024 9:25 AM CDT - 07/20/2024 11:59 PM CDT Hospital Encounter [address] [address] Hypogammaglobulinemia; Recurrent sinus infections Discharge Disposition: Discharge to home or self care 07/20/2024 9:50 AM CDT Lab [facility] Infectious Diseases [address] [facility] [address] [place] [id number] 07/20/2024 8:30 AM CDT Office Visit [facility] Allergy and Immunology [address] [facility] [address] [place] [id number] Yannick Rincon MD Hypogammaglobulinemia (Primary Dx); Recurrent sinus infections from Last 3 Months Allergies Active Allergy Reactions Criticality Noted Date Comments Acetaminophen Itching Low 07/16/2015 Medications DRONABINOL ORALIndications:Me dical Marijuana 1 Dose by other route 2 (two) times a day as needed Usually uses at night only Active predniSONE (DELTASONE) 5 mg tabletIndications: autoimmune disease Take 1 tablet (5 mg) by mouth daily as needed 05/07/19 21 Active hydrOXYchloroQUINE (PLAQUENIL) 200 mg tabletIndications: Systemic Lupus Erythematosus Take 1 tablet (200 mg total) by mouth 2 (two) times a day Active tiZANidine (ZANAFLEX) 4 mg tabletIndications: Muscle Spasm Take 1 tablet (4 mg total) by mouth every 6 (six) hours as needed 08/20/19 21 Active fluticasone propionate (FLONASE) 50 mcg/actuation nasal sprayIndications:A llergic Rhinitis Administer 2 sprays into each nostril daily as needed Active cholecalciferol (VITAMIN D-3) 50,000 unit capsule Take 1 capsule (50,000 Units total) by mouth once a week 04/11/19 23 Active dilTIAZem (CARDIZEM) 60 mg tablet TAKE 1 TABLET BY MOUTH ONCE DAILY NEEDED FOR PALPITATIONS 30 tablet 10/05/19 23 Active triamcinolone (KENALOG) 0.1 % cream Apply topically 2 (two) times a day Active clobetasoL (TEMOVATE) 0.05 % ointment Apply topically 2 (two) times a day 04/15/19 24 Active certolizumab pegoL 400 mg (200 mg x 2) kit Inject 2 mL (400 mg total) under the skin every 30 (thirty) days Pt take inj every 28 days 05/09/19 24 Active albuterol HFA (ProAir HFA) 90 mcg/actuation inhalerIndications :Bronchitis Inhale 2 puffs every 4 (four) hours as needed for wheezing or shortness of breath 8.5 g 08/02/19 24 Active carBAMazepine (TEGretol) 200 mg tablet Take 1 tablet (200 mg total) by mouth 2 (two) times a day 60 tablet 11 09/28/19 24 Active ondansetron ODT (ZOFRAN-ODT) 4 mg disintegrating tablet Take 1 tablet (4 mg total) by mouth every 8 (eight) hours as needed for nausea or vomiting 30 tablet 11/01/19 24 Active aspirin 81 mg enteric coated tablet Take 1 tablet (81 mg total) by mouth daily 11/23/19 24 025 Active certolizumab pegol (CIMZIA) 400 mg (200 mg x 2) kit Inject 1 mL (200 mg total) under the skin every 28 (twenty-eight) days Active metoprolol XL (TOPROL-XL) 50 mg extended release tabletIndications: Palpitations,PVC's (premature ventricular contractions) Take 1 tablet (50 mg total) by mouth daily 90 tablet 1 11/29/19 24 Active metoprolol XL (TOPROL-XL) 25 mg extended release tablet Take 1 tablet (25 mg total) by mouth daily 30 tablet 4 11/29/19 24 025 Active Additional Information Patient not taking.Reported on 06/18/2024 atorvastatin (LIPITOR) 40 mg tabletIndications: Mixed hyperlipidemia Take 1 tablet (40 mg total) by mouth daily 90 tablet 1 01/09/20 24 025 Active Additional Information Patient not taking.Reported on 06/18/2024 omeprazole (PriLOSEC) 40 mg capsuleIndications :Gastroesophageal reflux disease, unspecified whether esophagitis present Take 1 capsule (40 mg total) by mouth daily 90 capsule 3 02/20/20 24 Active traMADoL (ULTRAM) 50 mg tabletIndications: Lumbar back pain Take 0.5 tablets (25 mg total) by mouth daily 15 tablet 02/21/20 24 Active Additional Information Patient not taking.Reported on 06/18/2024 magnesium oxide (MAG-OX) 400 mg (241.3 mg elemental magnesium) tabletIndications: Palpitations Take 1 tablet (400 mg total) by mouth 2 (two) times a day 180 tablet 02/22/20 24 Active Repatha SureClick 140 mg/mL pen injector INJECT 140MG SUBCUTANEOUSLY ONCE EVERY 2 WEEKS. Active tirzepatide, weight loss, (Zepbound) 2.5 mg/0.5 mL pen injector Inject 0.5 mL (2.5 mg total) under the skin every 7 days Active gabapentin (NEURONTIN) 300 mg capsule Take 1 capsule by mouth twice daily 180 capsule 08/28/19 25 Active Active Problems Patient Care Coordination No te Formatting of this note migh t be different from the original. CAD for BIC Problem Noted Date Diagnosed Date Other forms of systemic lupus erythematosus 12/20 Lumbar back pain with radicu lopathy affecting right lower extremity 01/08/2024 Assessment & Plan (01/08/2024 9:33 PM CDT): This is a significant, separately identifiable problem that was evaluated and managed on the same day as the wellness exam Patient with persistent thoracic and lumbar back pain. She has radiation down into the right leg but still has pain near her bra line with twisting. She has done physical therapy but still continues to have 6 out of 10 pain most days. Recommend MRI of the thoracic and lumbar spines without contrast. Follow-up pending those results Chronic bilateral thoracic back pain 01/08/2024 Assessment & Plan (01/08/2024 9:33 PM CDT): This is a significant, separately identifiable problem that was evaluated and managed on the same day as the wellness exam Patient with persistent thoracic and lumbar back pain. She has radiation down into the right leg but still has pain near her bra line with twisting. She has done physical therapy but still continues to have 6 out of 10 pain most days. Recommend MRI of the thoracic and lumbar spines without contrast. Follow-up pending those results Annual physical exam 01/08/2024 Assessment & Plan (01/08/2024 9:35 PM CDT): Encouraged healthy lifestyle, good nutrition and exercise. Encouraged Calcium and Vitamin D and weight bearing exercise for bone health. Reviewed immunizations Reviewed age appropirate screenings. Fatigue 01/08/2024 Assessment & Plan (01/08/2024 9:35 PM CDT): Probably multifactorial. Check labs and followup to re-evaluate BMI 36.0-36.9,adult 11/01/2023 Assessment & Plan (12/26/2023 8:42 AM CDT): Discussed the patient's BMI. The BMI is above average. BMI management plan is completed. BMI Follow-up includes: nutrition counseling, exercise counseling and education provided. Assessment & Plan (12/04/2023 7:09 PM CDT): Discussed the patient's BMI. The BMI is above average. BMI management plan is completed. BMI Follow-up includes: nutrition counseling, exercise counseling and education provided. Assessment & Plan (11/01/2023 9:01 AM CDT): Discussed the patient's BMI. The BMI is above average. BMI management plan is completed. BMI Follow-up includes: nutrition counseling, exercise counseling and education provided. Chronic pain syndrome 08/28/2023 Assessment & Plan (08/28/2023 8:42 PM CDT): Patient has chronic pain. She has lupus along with other chronic pains. She had been using marijuana on a regular basis and was wanting to try to get away from that. She had a small amount of tramadol at home and was using a half of a 50 mg tablet at night and seems to help her rest. Will give her 15 month tramadol 50. If she requires increase coverage for pain may consider referral to pain management. Patient is in agreement with the plan PND (post-nasal drip) 08/28/2023 Assessment & Plan (08/28/2023 8:42 PM CDT): She is complaining with what sounds like postnasal drainage. It seems like it may be affecting her voice. Encouraged continued antihistamine along with Mucinex to thin out the mucus. Increase fluids. If symptoms persist especially the voice change persist will need to get her in with ENT for further evaluation. She denies burning of this esophagus or in the back of the throat as well as acid taste in her mouth but additional differential could be reflux. Will continue to monitor closely Parotitis, acute 05/14/2023 Assessment & Plan (05/14/2023 8:37 PM MMD UNIT TEACHER): The parotid gland has returned to normal size. Reduction in swelling. . She does have localized pain over the TM joint. She has felt what she feels like it is swelling under the the left jaw line. Due to persistent symptoms will go ahead and check a soft tissue ultrasound of the neck and face over the parotid and the left jaw to rule out any persistent masses Continue gabapentin 300 b.i.d. Assessment & Plan (05/14/2023 8:00 PM MMD UNIT TEACHER): Patient's symptoms are responding to the antibiotic. Swelling is significantly less. She is still having some Zinger type pains which may be compression of the trigeminal nerve. Will try some gabapentin 300 mg b.i.d. see how she does. If she has increased symptoms fever chills or sweats changes in her hearing or any other neurologic signs she is to follow up immediately. Follow up in 3-4 weeks to reassess Assessment & Plan (05/14/2023 7:38 PM MMD UNIT TEACHER): Patient has noted swelling just in front of the ear. The actual canal and TM appear normal. Suspect parotitis versus other salivary gland infection. Will start with Augmentin 875 b.i.d. times 10 days. Will send out tramadol to use for severe pain if it breaks through with Tylenol. She can apply warm compresses to the area. If she has increased pain headaches drainage from the ear any new symptoms she is to call immediately. Will recheck in 1 week or sooner for any other problems or concerns Mixed hyperlipidemia 12/03/2022 Assessment & Plan (01/08/2024 9:35 PM CDT): Encouraged patient to follow low fat/low chol diet like the Mediterranean diet. Increase good fats in the diet. Increase exercise. Monitor labs as needed. Continue Lipitor 20 Cigarette smoker 11/30/2022 Assessment & Plan (01/08/2024 9:34 PM CDT): Encouraged smoking cessation. Discussed 3 minutes. Reviewed options for assistance with cessation. 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 Pt declines assistance at this time but may contact the office at anytime for further help as they desire. Assessment & Plan (11/30/2022 8:34 PM CDT): Encouraged smoking cessation. Discussed 3 minutes. Reviewed options for assistance with cessation. 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 Pt declines assistance at this time but may contact the office at anytime for further help as they desire. History of colon polyps 07/29/2022 Assessment & Plan (06/18/2024 8:54 AM CDT): Has a history of colon polyps. Most recent colonoscopy was performed 01/21/2023 with Artem that showed one diminutive polyp in the sigmoid colon, tubular adenoma recommended repeat colonoscopy in 5 years. -We will be due in January of 2028 Assessment & Plan (07/29/2022 9:29 AM CDT): Colonoscopy [address] Luz De Leon with 6mm tubular adenoma. Abnormal finding on GI tract imaging 07/29/2022 Assessment & Plan (07/29/2022 9:28 AM CDT): See above. PVC's (premature ventricular contractions) 03/09 Breast cancer screening by mammogram 02/14/2022 Assessment & Plan (01/08/2024 9:35 PM CDT): Mammogram order provided Assessment & Plan (02/14/2022 7:09 PM MMD UNIT TEACHER): Mammogram order provided Adrenal adenoma, left 02/13/2022 Assessment & Plan (02/13/2022 10:49 PM MMD UNIT TEACHER): I do not know the size of the adenoma so will have staff contact [facility] to have a reread determine size to ultimately determine need for follow-up Cellulitis 12/13/2021 Assessment & Plan (12/13/2021 3:39 PM CDT): Retained suture that is pushing through in the incision line. Minimal cellulitis around the suture site but due to her immunocompromised state will go ahead and put her on a quick antibiotic. Will do Keflex 500 mg b.i.d.. She is to keep a very close eye on this area and if it increases she is to call immediately. She is to follow the recommendations from her media assistant regarding her an autoimmune medications while on antibiotics. Pericardial effusion 11/05/2021 Assessment & Plan (11/23/2021 6:15 PM CDT): Continue per cardio Dr. De Leon Coronary artery disease of n ative artery of [place] heart with stable angina pectoris 11/05/2021 Assessment & Plan (01/08/2024 9:34 PM CDT): Patient is to continue with Dr. De Leon/cardiology Continue statin, aspirin and beta-sera Assessment & Plan (05/02/2022 10:51 PM MMD UNIT TEACHER): Continue statin calcium channel sera She is on an AC Assessment & Plan (02/13/2022 10:49 PM MMD UNIT TEACHER): Continue per Cardiology. Patient is on statinand beta-sera Assessment & Plan (11/23/2021 6:16 PM CDT): Patient encouraged complete smoking cessation She is on Xarelto so aspirin is being held. Her liver enzymes were elevated so statin is being held. She is on a beta-sera. Continue per Cardiology Right flank pain 10/26/2021 Assessment & Plan (06/21/2022 2:58 PM CDT): -Renal origin ruled out as repeat US is normal. Still need urine to rule out infection. -Discussed possibly related to GI vs musculoskeletal. PLAN: -[facility] Will f/u on results and discuss with patient when available. Assessment & Plan (06/03/2022 4:13 PM CDT): -CT indicating possible recent passage of stone. She is still having some intermittent sharp pain in right flank. No gross hematuria. No other non obstructing stones noted on CT done. -We discussed possibility that migraine medication caused stone formation?? PLAN: -Renal US. -Repeat UA to rule out continued presence of blood. -Will f/u on imaging/urien and further plan. Discussed possible Litholink to analyze urine. -We discussed general prevention of stones including good fluid hydration with mostly water, low sodium. Assessment & Plan (05/04/2022 2:07 PM MMD UNIT TEACHER): Patient presents with acute onset flank pain about 3:00 a.m. this morning. It was intense and colicky. It has improved some but still has discomfort. No no gross hematuria but there is microscopic hematuria on the dip. Suspect kidney stone. Will get CT with renal views stat. Will send urine for culture 05/03/2022 CT Abd/pelvis IMPRESSION: 1. Mild right pelvicaliectasis and ureterectasis without definite evidence of an obstructing calculus, and findings may be related to recently passed calculus, radiolucent obstructing calculus, or ascending urinary tract infection. Clinical correlation with urinary analysis is recommended as clinically indicated. 2. Circumferential mucosal thickening of the urinary bladder with mild adjacent fat stranding, which is concerning for cystitis. This can be further evaluated with aforementioned follow-up urinary analysis. 3. No definite evidence of bowel obstruction. 4. Mild mucosal thickening of the mid to distal descending colon and sigmoid colon, which is likely related to underdistention much less likely mild colitis of infectious or inflammatory etiology. 5. Normal appendix. I spoke with patient after receiving the results on 05/03. Notified. Urine culture pending. Encouraged to strain'/catch urine. Bactrim DS bid x 7 days Flomax. Will followup with patient in AM and reach out to Elizabeth Alvarez NP/Urology ADDENDUM: 05/04 -- [place] with Elizabeth Alvarez NP. Her office will reach out to patient for followup. Assessment & Plan (10/26/2021 8:29 PM CDT): Will evaluate further with UA. Will notify pt of results as they become available. We reviewed normal cta chest/upper abdomen from [place] from er visit. Leukocytosis 10/26/2021 Assessment & Plan (10/26/2021 8:29 PM CDT): Repeat cbc over the coming week Pleural effusion 10/26/2021 Assessment & Plan (10/26/2021 8:29 PM CDT): Repeat cxr to ensure resolution Tachycardia 10/26/2021 Assessment & Plan (10/26/2021 8:28 PM CDT): Increase toprol xl from 25mg every day to 50mg every day. She has appt pending with cv that she will keep. Edema 10/22/2021 Assessment & Plan (10/22/2021 9:11 AM CDT): She will continue with lasix and potassium supplementation. Will repeat a cmp in the coming week. Acute embolism and thrombosi s of deep vein of left upper extremity 10/22/2021 Overview (11/23/2021): 10/2021 - Left upper extremity DVT. Plan Xarelto for 6 months (May 2022) Assessment & Plan (05/04/2022 1:48 PM MMD UNIT TEACHER): History of DVT in the left upper extremity. Awaiting recommendations from Hematology appointment to determine status of anticoagulant use. Assessment & Plan (05/02/2022 10:50 PM MMD UNIT TEACHER): Continue Xarelto. Awaiting appointment with Hematology to determine long-term plans of the need for an AC. Assessment & Plan (02/13/2022 10:48 PM MMD UNIT TEACHER): Patient continues with the Xarelto. Had DVT after surgery but also has autoimmune issues. Will recommend seeing Hematology to determine if she needs to continue the anticoagulant beyond the six-month treatment span. Assessment & Plan (11/23/2021 6:13 PM CDT): 10/2021 - Left upper extremity DVT. Plan Xarelto for 6 months (May 2022) Assessment & Plan (10/22/2021 9:11 AM CDT): Continue with xarelto per dosing schedule. Will plan on an US of the LUE in 6mo. Hypokalemia 10/22/2021 Assessment & Plan (10/22/2021 9:11 AM CDT): Continue with kcl supplement, repeat cmp this week. COVID-19 10/22/2021 Assessment & Plan (10/22/2021 9:11 AM CDT): Symptoms have resolved Transaminitis 10/22/2021 Assessment & Plan (11/23/2021 6:15 PM CDT): Continue to monitor LFTs as they were elevated. Will continue to hold statin for 3-4 months and reassess. Assessment & Plan (10/22/2021 9:12 AM CDT): Repeat cmp - discussed this could be multifactorial and even secondary to viral illness, such as covid 19. Hyponatremia 10/22/2021 Assessment & Plan (10/22/2021 9:11 AM CDT): Repeat cmp over the coming week to ensure stability Irritable bowel syndrome wit h both constipation and diarrhea 09/23/2021 Assessment & Plan (02/03/2022 9:34 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): -stool studies as above. No evidence of infection. 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 Biopsies negative for celiac. -chronic symptom. No prior history of antibiotic use. No travel. No sick exposure. No nighttime symptom. No presence of blood in stool. + tenesmus. + urgency. No family history of colon cancer. No family history of IBD. -previously done TSH within normal limits. -EGD and colonoscopy as above. -lab work as above. -will continue with dicyclomine to be used on a p.r.n. basis abdominal pain. -will continue with Zofran to be used on a p.r.n. basis for nausea. -will initiate therapy with methylcellulose to be used on a daily basis. -will give Imodium to be used on a p.r.n. basis for diarrhea symptom. Discussed the ways to use the Imodium. 2 mg p.r.n. for diarrhea. No more than 8 pills a day. Assessment & Plan (11/04/2021 10:54 AM CDT): -stool studies as above. No evidence of infection. 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 Biopsies negative for celiac. -chronic symptom. No prior history of antibiotic use. No travel. No sick exposure. No nighttime symptom. No presence of blood in stool. + tenesmus. + urgency. No family history of colon cancer. No family history of IBD. -previously done TSH within normal limits. -EGD and colonoscopy as above. -lab work as above. -will continue with dicyclomine to be used on a p.r.n. basis abdominal pain. -will continue with Zofran to be used on a p.r.n. basis for nausea. -will initiate therapy with methylcellulose to be used on a daily basis. -will give Imodium to be used on a p.r.n. basis for diarrhea symptom. Discussed the ways to use the Imodium. 2 mg p.r.n. for diarrhea. No more than 8 pills a day. Assessment & Plan (09/23/2021 11:15 AM CDT): -stool studies as above. No evidence of infection. 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 Biopsies negative for celiac. -chronic symptom. No prior history of antibiotic use. No travel. No sick exposure. No nighttime symptom. No presence of blood in stool. + tenesmus. + urgency. No family history of colon cancer. No family history of IBD. -previously done TSH within normal limits. -EGD and colonoscopy as above. -lab work as above. -will continue with dicyclomine to be used on a p.r.n. basis abdominal pain. -will continue with Zofran to be used on a p.r.n. basis for nausea. -will initiate therapy with methylcellulose to be used on a daily basis. -will give Imodium to be used on a p.r.n. basis for diarrhea symptom. Discussed the ways to use the Imodium. 2 mg p.r.n. for diarrhea. No more than 8 pills a day. Change in bowel habits 08/31/2021 Vomiting without nausea 08/31/2021 Nausea 08/31/2021 Assessment & Plan (11/04/2021 10:54 AM CDT): -complicated recent hospitalization as noted below. Will continue with Zofran p.r.n. for nausea. Assessment & Plan (08/31/2021 11:58 AM CDT): -will give her Zofran to be used on a p.r.n. basis for nausea Abdominal pain 08/31/2021 Assessment & Plan (06/18/2024 9:36 AM CDT): Reports that she has occasional complaints of upper abdominal bloating, pain that seemed to be brought on after eating. She reports that she can have occasional vomiting. Does admit that she will only eat once a day. Recommended for her to eat smaller portions throughout the day and not to only eat one meal a day. Does admit that she had a prescription for dicyclomine that but this called blurriness. May take FDgard as needed to help with her complaints. -Educated on the pros and cons of Wegovy, and educated on potential side effects including pancreatitis. -Advised that if she does develop increasing complaints that she will need to stop Wegovy Assessment & Plan (07/29/2022 9:31 AM CDT): Chronic left upper quadrant pain for the past 2 years after meals associated with nausea, vomiting, and diarrhea. Patient's prior GI, Dr. Luz De Leon, has done an extensive workup including EGD August 2021 with gastritis, pathology with gastritis but negative for H pylori and normal duodenal biopsies. Labs July 2021 with delaminated bleed in antibody IgA elevated at 21, TTG IgA normal at 3. Patient continues to have pain despite PPI b.i.d.. Differential includes peptic ulcer disease versus cannabinoid hyperemesis syndrome versus IBS versus IBD. -avoid NSAIDS and marijuana -continue PPI -schedule EGD -The risks (risks of bleeding, infection, perforation requiring surgery, missed polyps/cancer, dental injury, aspiration pneumonia, anesthesia complications such as drug reaction and cardiopulmonary complications including rare chance of ), benefits, and alternatives of the planned procedure were explained to the patient who understands and consents to having procedure done. Assessment & Plan (05/02/2022 10:50 PM MMD UNIT TEACHER): This is a significant, separately identifiable problem that was evaluated and managed on the same day as the wellness exam Persistent discomfort diarrhea and cramping. This seems to be on the left upper quadrant. She has not been taking Bentyl when this happens she was not sure if that was what it was for. Encouraged to start with the Bentyl to see if her symptoms improve. Continue with the PPI. Will check an amylase and lipase just to rule out underlying pancreatic cause does not look like these have been done. Will refer to Dr. Mcgill for further evaluation since her GI at [facility] is on leave. If she has increased symptoms she is to follow-up sooner. Patient is in agreement with the plan Assessment & Plan (08/31/2021 11:57 AM CDT): -celiac antibodies mildly positive as noted above. -worsening symptoms of abdominal pain along with nausea, vomiting, gastroesophageal reflux disease, relief of symptoms with twice a day PPI therapy, will schedule an upper endoscopy for further evaluation. Will do biopsies for celiac disease at that time. Will also do biopsies for Helicobacter. Neurogenic thoracic outlet syndrome 07/30/2021 Overview (07/30/2021): Added automatically from request for surgery [id number] Assessment & Plan (05/02/2022 10:49 PM MMD UNIT TEACHER): Status post surgery. Continue per Dr. [place]. She continues to follow with him about every 6 months. Assessment & Plan (10/02/2021 2:12 PM CDT): - S/p OR on 09/29/21 for right neurogenic thoracic outlet decompression - Pain control: SURVEYOR INSTRUMENT ASSISTANT until POD 2, received pre-op block. Add Percocet, ibuprofen, and methocarbamol POD1. - DC evans POD1. - serial CXR to monitor for drain placement and evaluate for pleural effusions/pneumothorax. - Chest drain to pleuravac -20 suction POD 0. To PETE drain bulb beginning POD1. - PETE drain output monitoring and care. - 20 g fat diet - PT beginning POD 1 - Nutrition consult for 20g fat diet instructions - plan to DC PETE drain with CXR 2 hours after removal - anticipate discharge pending CXR Acute non-recurrent pansinusitis 07/27/2021 Assessment & Plan (07/27/2021 9:29 PM CDT): Start antibiotic, antihistamine (Claritin OR Zyrtec), Mucinex 12hour and Steroid nasal spray (Flonase). Push fluids. Rest. Supportive care. If sxs worsen or don\'t improve, pt is to followup in the office. Patient knows she will have to stop her Humira well on the antibiotic. Diarrhea 07/27/2021 Assessment & Plan (07/29/2022 9:28 AM CDT): Chronic diarrhea associated with abdominal pain. Stool studies in the past have been negative. Colonoscopy by Dr. Luz De Leon August 2021 with fair/inadequate prep, normal ileum, normal mucosa in the colon, random biopsies with mild melanosis coli, 6 mm tubular adenoma in the rectum. CT scan April 2022 with mild mucosal thickening of the mid to distal descending colon and sigmoid colon as well as possible cystitis. -schedule colonoscopy further evaluation -The risks (risks of bleeding, infection, perforation requiring surgery, missed polyps/cancer, dental injury, aspiration pneumonia, anesthesia complications such as drug reaction and cardiopulmonary complications including rare chance of ), benefits, and alternatives of the planned procedure were explained to the patient who understands and consents to having procedure done. Assessment & Plan (08/31/2021 11:56 AM CDT): -stool studies as above. No evidence of infection. 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 -chronic symptom. No prior history of antibiotic use. No travel. No sick exposure. No nighttime symptom. No presence of blood in stool. + tenesmus. + urgency. No family history of colon cancer. No family history of IBD. -stool studies as above. No evidence of infection. 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 -previously done TSH within normal limits. -no prior colonoscopy. Will schedule for a colonoscopy for further evaluation, given the high suspicion for IBD in the clinical scenario. Will do biopsies for microscopic colitis at that time. -lab work as above. Since the symptom onset was prior to the date of this lab work will hold off on additional laboratory workup at this time. -will initiate therapy with methylcellulose to be used on a daily basis. -will give Imodium to be used on a p.r.n. basis for diarrhea symptom. Discussed the ways to use the Imodium. 2 mg p.r.n. for diarrhea. No more than 8 pills a day. Assessment & Plan (07/27/2021 9:29 PM CDT): Persistent diarrhea. Recommend to complete the antibiotic as Augmentin may contribute to more diarrhea and soft stool. Upon completion allow little time for stools returned back to normal and if diarrhea continues encourage stool cultures and celiac labs. If it still per EGD. sists will need a referral to GI for colonoscopy possible Hip pain 05/30/2021 Assessment & Plan (05/30/2021 12:00 PM MMD UNIT TEACHER): Persistent pain after being tackled by a dog. Will check left hip x-ray and then thoracic lumbar and sacral coccyx views to rule out any type of fracture. She still has quite a bit of tenderness at but at times it is difficult to separate this from her autoimmune conditions. Continue with her current treatment plan. Ice and/or heat to the area as needed. Follow-up pending the x-rays. If they are negative will extend physical therapy to include her lower area is currently it is only working on the thoracic outlet. If patient loses control of bowel or bladder she is to follow up immediately. She voices understanding and agreement Chronic bilateral low back pain with bilateral s ciatica 05/30/2021 Assessment & Plan (05/30/2021 12:01 PM MMD UNIT TEACHER): Persistent pain after being tackled by a dog. Will check left hip x-ray and then thoracic lumbar and sacral coccyx views to rule out any type of fracture. She still has quite a bit of tenderness at but at times it is difficult to separate this from her autoimmune conditions. Continue with her current treatment plan. Ice and/or heat to the area as needed. Follow-up pending the x-rays. If they are negative will extend physical therapy to include her lower area is currently it is only working on the thoracic outlet. If patient loses control of bowel or bladder she is to follow up immediately. She voices understanding and agreement Bronchitis 02/15/2021 Assessment & Plan (02/15/2021 6:07 PM MMD UNIT TEACHER): See cough Cough 02/15/2021 Assessment & Plan (11/01/2023 11:54 PM CDT): Flu a and B, COVID were negative Patient has had a persistent cough. She has autoimmune history and has had symptoms for a couple of weeks. Her family had similar symptoms but resolved on its own. Recommend checking a chest x-ray. Order given. Will send out Augmentin to start for coverage possible bacterial infection with Diflucan on days 5 of the Augmentin. She will continue to hold treatment for her RA she has been off of it for awhile. For symptoms worsen she is to follow up immediately. Assessment & Plan (02/15/2021 6:06 PM MMD UNIT TEACHER): Patient to presume positive COVID until results are available and self isolate for 10 days from the onset of sxs. Check COVID test thru [facility] collection site in [place]. If positive, complete quarantine and consider monoclonal antibodies. If negative, suspect may be a bronchitis vs pneumonia. Start antibiotic, antihistamine (Claritin OR Zyrtec), Mucinex 12hour and Steroid nasal spray (Flonase). Push fluids. Rest. Supportive care. If sxs worsen or don\'t improve, pt is to followup in the office. Monitor sxs and call or go to the ER if has any of the following: --trouble breathing --persistent pain or pressure in the chest --new confusion --inability to wake or stay awake -- bluish lips or face If patient has been in close contact with anyone, they should be notified and instructed to quarantine per CDC guidelines for 14 days after last exposure to the positive COVID patient and monitor closely for symptoms of COVID. If they appear they should be tested. Close contact includes: --You were within 6 feet of someone who has COVID-19 for a total of 15 minutes or more --You provided care at home to someone who is sick with COVID-19 --You had direct physical contact with the person (hugged or kissed them) --You shared eating or drinking utensils --They sneezed, coughed, or somehow got respiratory droplets on you Additional Steps to avoid exposure/spread include: Avoid crowded places where close contact with others may occur, such as shopping centers, movie theaters, dormitories, or stadiums. Avoid transit where close contact with others may occur, such as planes, trains, and buses. Maintain a distance of approximately 6 feet from other people whenever possible (spacing out if you are in a line, leaving 2 seats in between others at a waiting room when possible). Wash your hands with soap and water often. If needed, use a hand motor vehicle parts interpreter that contains at least 60% alcohol. Clean and disinfect frequently touched surfaces such as tables, doorknobs, countertops, etc daily. Avoid touching your eyes, nose, and mouth when possible. Other fatigue 12/12/2020 TIM (dyspnea on exertion) 12/12/2020 Palpitations 12/12/2020 Assessment & Plan (05/02/2022 10:48 PM MMD UNIT TEACHER): Continue per Dr. De Leon. She just changed medications so awaiting results. Will continue monitor closely Assessment & Plan (03/18/2021 12:13 PM MMD UNIT TEACHER): Continue per Cardiology and complete workup. Family history of coronary artery disease 2020 Precordial pain 12/12/2020 Chest wall pain 11/06/2020 Assessment & Plan (11/06/2020 9:56 AM CDT): Patient advised to report to the er now for cardiac and PE workup, she refused. Will order stat labs and imaging, will notify her of results as available. Otalgia, right 11/06/2020 Assessment & Plan (11/06/2020 9:57 AM CDT): Will start on antibiotics, she has home prednisone 5mg tablets that she will start daily x 5 days Morbid obesity 09/24/2020 Assessment & Plan (01/08/2024 9:34 PM CDT): Discussed the patient's BMI. The BMI is above average. BMI management plan is completed. BMI Follow-up includes: nutrition counseling, exercise counseling and education provided. Patient has an obesity-related condition (not limited to: hypertension, obstructive sleep apnea, osteoarthritis, hyperlipidemia, diabetes, etc.). Therefore, morbid obesity may be documented for patients with a BMI between 35.00-39.99. Assessment & Plan (12/04/2023 7:08 PM CDT): Discussed the patient's BMI. The BMI is above average. BMI management plan is completed. BMI Follow-up includes: nutrition counseling, exercise counseling and education provided. Patient has an obesity-related condition (not limited to: hypertension, obstructive sleep apnea, osteoarthritis, hyperlipidemia, diabetes, etc.). Therefore, morbid obesity may be documented for patients with a BMI between 35.00-39.99. Assessment & Plan (11/01/2023 11:50 PM CDT): Discussed the patient's BMI. The BMI is above average. BMI management plan is completed. BMI Follow-up includes: nutrition counseling, exercise counseling and education provided. Patient has an obesity-related condition (not limited to: hypertension, obstructive sleep apnea, osteoarthritis, hyperlipidemia, diabetes, etc.). Therefore, morbid obesity may be documented for patients with a BMI between 35.00-39.99. Assessment & Plan (08/28/2023 8:44 PM CDT): Discussed the patient's BMI. The BMI is above average. BMI management plan is completed. BMI Follow-up includes: nutrition counseling, exercise counseling and education provided. Patient has an obesity-related condition (not limited to: hypertension, obstructive sleep apnea, osteoarthritis, hyperlipidemia, diabetes, etc.). Therefore, morbid obesity may be documented for patients with a BMI between 35.00-39.99. Assessment & Plan (11/06/2020 8:19 AM CDT): Obesity is unchanged. Discussed the patient's BMI. The BMI is above average. BMI management plan is completed. BMI Follow-up includes: nutrition counseling, exercise counseling and education provided. Assessment & Plan (09/24/2020 2:30 PM CDT): Obesity is unchanged. Discussed the patient's BMI. The BMI is above average. BMI management plan is completed. BMI Follow-up includes: nutrition counseling, exercise counseling and education provided. Cyst of right breast 09/24/2020 Assessment & Plan (09/24/2020 6:23 PM CDT): Advised warm compresses 20min tid Will evaluate further with breast US, will notify her of results as available Toenail bruise, left, initial encounter 09/25/19 Assessment & Plan (09/24/2020 6:24 PM CDT): Will monitor, appears to be resolving Acute pain of right knee 08/04/2020 Assessment & Plan (06/26/2023 10:31 PM CDT): Patient has pain in her knee as well as behind the knee and swelling and pain in the calf. She has a history of DVTs. Will obtain a stat venous Doppler to rule out DVT. If it is negative she probably needs an MRI but advised patient is sometimes difficult for family practice to get that. Will refer her over to ortho if imaging is negative for further evaluation of the knee pain. Unfortunately because we are at the end of the day I will not be able to get a stat Doppler today. She has some leftover Xarelto at home. Encouraged her to take 1 when she gets home as this will cover her until the venous Doppler is able to be done stat in the morning Venous Doppler results from 4 to were negative for DVT. X-rays of the right knee revealed: Enthesopathic change at the quadriceps attachment onto the patella. Patient was notified. Referral be made to Orthopedics. Encouraged ice to the area. She would benefit from support stockings. She is Ultram available for breakthrough pain but encouraged to 1st use Tylenol. Assessment & Plan (08/04/2020 3:42 PM CDT): Pain over the tuberosity. Differentials include some type of bony abnormality versus patellar tendinitis versus prepatellar bursitis. Encouraged her to continue icing. She is already on anti-inflammatory. May use Tylenol for breakthrough pain. Will check an x-ray. If symptoms persist may need to see the orthopedist. She probably has medial collateral sprain also as she has tenderness over this ligament again continue to ice and will monitor closely OAB (overactive bladder) 07/18/2020 Assessment & Plan (09/05/2020 10:49 AM CDT): -On oxybutynin 5mg XL and takes this in the morning. Helps urgency during the day. Has reduced nocturia somewhat but still waking up a couple times a night to urinate. PLAN: -Continue to avoid bladder irritants and reduce caffeine intake. -Continue to avoid fluids 2-3 hours before bedtime. -Keep taking oxybutynin 5mg XL in the morning. Will add oxybutynin 5mg IR about 30 min to 1 hour before bed. -Follow up in about 6 weeks. If no improvement, may consider sending to Dr. Tobias to discuss more invasive options. Assessment & Plan (07/18/2020 10:49 AM CDT): -She is working to reduce caffeine intake. -Discussed options such as medication and more invasive intervention such as botox and interstim. Patient elects to try medication at this time. PLAN: -Start oxybutynin 5mg XL once daily. Discussed common side effects of constipation and dry mouth. -Advised to try and greatly reduce or avoid fluids about 2-3 hours before bed. Urinate right before lying down to sleep. -Continue to avoid bladder irritants and practice Kegel exercises daily. Handout on these subjects given to patient. -Will f/u in 6-8 weeks to re-evaluate symptoms. Hematuria 06/08/2020 Assessment & Plan (06/08/2020 8:02 PM CDT): Discussed causes of hematuria and need to workup to prove benign microscopic hematuria vs other more worrisome etiology. Will refer to Urology. Urinary frequency 06/05/2020 Assessment & Plan (03/18/2021 12:13 PM MMD UNIT TEACHER): Continue oxybutynin Assessment & Plan (06/05/2020 12:03 PM CDT): -Initially performed PVR and showing approximately 300mL. She reports she had urinated just recently at start of visit. She was instructed to urinate again and PVR done. This showed 2mL. -Patient reports frequent urination. She states when she does urinate, it is usually a moderate amount. She has bothersome nocturia. -She reports intake of caffeine throughout the day (coffee, multiple Dr.Peppers, and iced tea). PLAN: -Work to reduce amount of caffeine intake and switch to water. Avoid caffeine in late afternoon/evening. -Try to avoid or overall reduce amount of fluid intake 2-3 hours prior to bed. -We will avoid medication at this time due to possible side effects of dry mouth and constipation. Microscopic hematuria 06/05/2020 Overview (07/18/2020): Negative workup done 06/2020 with [facility]. Plan repeat workup in 2024 (Per Elizabeth card 06/2020 note) Assessment & Plan (07/18/2020 10:44 AM CDT): -Negative workup. PLAN: -No further interventions at this time. Would recommend repeat workup in 3-5 years if this continues or sooner if related issues arise. Assessment & Plan (06/05/2020 11:57 AM CDT): -POCT urine in PCP's office showing blood. Urine culture was performed and was negative. She had UA with microscopy done 03/2020 and showed RBC 0-2. -POCT urine at today's visit showing 1+ blood. PLAN: -Send for UA microscopy. Culture was done recently. -If microscopy shows RBC >3, will perform hematuria workup. Discussed with patient what is involved in workup including imaging and cystoscopy. Cervical disc disorder with radiculopathy of cervical region 03/28/2020 Overview (03/28/2020): Added automatically from request for surgery [id number] Gastroesophageal reflux disease 01/15/2020 Assessment & Plan (06/18/2024 9:33 AM CDT): Doing well on daily omeprazole. Educated on importance of avoiding certain food triggers. Also recommended for her to eat smaller portions throughout the day especially when starting Wegovy. Assessment & Plan (02/03/2022 9:34 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): -EGD as above. No esophagitis noted. Gastritis+ Reports worsened symptoms. -symptoms well controlled with omeprazole twice a day. Will continue for now. Assessment & Plan (11/04/2021 10:54 AM CDT): -EGD as above. No esophagitis noted. Gastritis+ -symptoms well controlled with omeprazole twice a day. Will continue for now. Will slowly over the dose. Assessment & Plan (09/23/2021 11:15 AM CDT): -EGD as above. No esophagitis noted. Gastritis+ -symptoms well controlled with omeprazole twice a day. Will continue for now. Will slowly over the dose. Assessment & Plan (03/18/2021 12:12 PM MMD UNIT TEACHER): Continue pantoprazole Assessment & Plan (12/14/2020 2:47 AM CDT): Continue PPI Assessment & Plan (01/15/2020 10:02 PM CDT): Continue PPI Radicular pain in right arm 12/16/2019 Assessment & Plan (01/15/2020 10:01 PM CDT): This is a significant, separately identifiable problem that was evaluated and managed on the same day as the wellness exam Await recommendation from Neurosurg. She has stopped PT due to pain Will start Gabapentin 300mg tid as she is having pain that is keeping her awake. Reviewed risks, benefit, alternatives, side effects and proper use. Reviewed risks, benefit, alternatives, side effects and proper use. Assessment & Plan (12/16/2019 12:30 AM CDT): See neck pain Cervical pain (neck) 10/13/2019 Assessment & Plan (12/16/2019 12:30 AM CDT): MRI cspine for the radicular pain. Has flexeril hs. NSAIDs. Is on a steroid Discussed gabapentin. She wants to wait and get MRI first. Assessment & Plan (10/13/2019 6:53 PM CDT): Pain appears to be more musculo-skeletal in the cspine and Lspine. No radicular complaints in the arms or legs. Recommend short term Mobic. She states her media assistant will only let her use Mobic 7.5mg short term due to possible interactions with her lupus meds. Monitor closely. Already has flexeril, on daily steroid Warm moist heat prn. Stretching. Start PT> Call if sxs worse or starts noting radicular sxs. Lumbar back pain 10/13/2019 Assessment & Plan (10/13/2019 6:54 PM CDT): See cervical back pain. Hemorrhoids 01/14/2019 Assessment & Plan (01/14/2019 3:17 PM CDT): Anusol HC into rectum. Increase fluids/fiber. Hyperglycemia 12/28/2018 Assessment & Plan (03/18/2021 12:12 PM MMD UNIT TEACHER): Pre-diabetes/hyperglycemia is a precursor to Dm. Stressed importance of working on diet (decrease your simple sugars and one carbohydrate with each meal) and increase you exercise to achieve weight loss and this will help prevent you from progressing to diabetes. Assessment & Plan (01/15/2020 10:00 PM CDT): Monitor labs. Assessment & Plan (01/14/2019 3:18 PM CDT): Pre-diabetes is a precursor to Dm. Stressed importance of working on diet (decrease your simple sugars and one carbohydrate with each meal) and increase you exercise to achieve weight loss and this will help prevent you from progressing to diabetes. Check labs Fibromyalgia 11/12/2015 Resolved Problems Problem Noted Date Diagnosed Date Resolved Date Chronic midline low back sagar n without sciatica 12/04/2023 01/08/2024 Assessment & Plan (12/04/2023 7:09 PM CDT): Encouraged NSAIDS (if able to safely tolerate) or Tylenol. Topical preparations like Lidocaine patches, Biofreeze, ICYHOT etc as needed. Heat, stretching Avoid long periods of sitting/laying. Encouraged PT. Followup if has any problems controlling bowels or bladder or if sxs worsen. Chronic pain of right knee 08/28/2023 1 Assessment & Plan (08/28/2023 8:43 PM CDT): Patient continues to have chronic pain around the right knee. She had a Young's cyst that probably ruptured and has reabsorbed. She is following with Dr. Vaz. He has continuing to work through this discomfort. Encouraged physical therapy. She has not overly thrilled about that but stressed that walking in the pool or hydrotherapy really would be a great start. She states the pools opening at home and she will begin walking 10-15 minutes a day and workup as much as she can before she returns back to Dr. galicia. This will allow us to see if she does get improvement. Changing skin lesion 08/28/2023 024 Assessment & Plan (08/28/2023 8:44 PM CDT): Patient has multiple skin lesions she is concerned with. She has never had an all-over body exam. Encouraged referral to dermatology for complete exam and specifically some of the ones she is concerned about. Names provided to patient referral placed Calf swelling 06/26/2023 08/28/2023 Assessment & Plan (06/26/2023 10:31 PM CDT): Patient has pain in her knee as well as behind the knee and swelling and pain in the calf. She has a history of DVTs. Will obtain a stat venous Doppler to rule out DVT. If it is negative she probably needs an MRI but advised patient is sometimes difficult for family practice to get that. Will refer her over to ortho if imaging is negative for further evaluation of the knee pain. Unfortunately because we are at the end of the day I will not be able to get a stat Doppler today. She has some leftover Xarelto at home. Encouraged her to take 1 when she gets home as this will cover her until the venous Doppler is able to be done stat in the morning Venous Doppler results from 4 to were negative for DVT. X-rays of the right knee revealed: Enthesopathic change at the quadriceps attachment onto the patella. Patient was notified. Referral be made to Orthopedics. Encouraged ice to the area. She would benefit from support stockings. She is Ultram available for breakthrough pain but encouraged to 1st use Tylenol. Pain in both hands 05/14/2023 Assessment & Plan (05/14/2023 7:38 PM MMD UNIT TEACHER): Patient notes pain in both hands. Her media assistant suggest seen in ortho hand for possible injections. Will make referral to Dr. Looney for further evaluation Facial swelling 05/14/2023 08/28/2023 Assessment & Plan (05/14/2023 8:37 PM MMD UNIT TEACHER): The parotid gland has returned to normal size. Reduction in swelling. . She does have localized pain over the TM joint. She has felt what she feels like it is swelling under the the left jaw line. Due to persistent symptoms will go ahead and check a soft tissue ultrasound of the neck and face over the parotid and the left jaw to rule out any persistent masses Continue gabapentin 300 b.i.d. BMI 35.0-35.9,adult 04/25/2023 06/20/19 24 Assessment & Plan (04/25/2023 11:41 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): Discussed the patient's BMI. The BMI is above average. BMI management plan is completed. BMI Follow-up includes: nutrition counseling, exercise counseling and education provided. Acute right-sided low back p ain without sciatica 03/19/2023 01/08/2024 Assessment & Plan (03/19/2023 9:20 PM MMD UNIT TEACHER): Encouraged NSAIDS (if able to safely tolerate) or Tylenol. Topical preparations like Lidocaine patches, Biofreeze, ICYHOT etc as needed. Heat, stretching Avoid long periods of sitting/laying. Encouraged PT. Followup if has any problems controlling bowels or bladder or if sxs worsen. Neck pain 03/19/2023 01/08/2024 Assessment & Plan (03/19/2023 9:20 PM MMD UNIT TEACHER): Encouraged NSAIDS (if able to safely tolerate) or Tylenol. Topical preparations like Lidocaine patches, Biofreeze, ICYHOT etc as needed. Heat, stretching Avoid long periods of sitting/laying. Encouraged PT. Followup if has any problems controlling bowels or bladder or if sxs worsen. Coronary artery disease invo lving [place] coronary artery of [place] heart without angina pectoris 12/03/2022 01/08/2024 Periorbital swelling 11/30/2022 024 Assessment & Plan (11/30/2022 8:34 PM CDT): Patient has swelling around her left eye. This includes the eye lid. No obvious break in the skin to account for infection but will treat it as such. Augmentin 875 b.i.d. times 10 days patient is on daily prednisone 5 mg which she is to hold. Will have her do 40 mg q.a.m. x5 days. She then may return to her daily 5 mg dose. Reviewed warning signs and if she would start to notice visual changes neurologic changes or difficulty with her vision she is to go to the ER immediately BMI 36.0-36.9,adult 11/24/2022 04/25/19 Assessment & Plan (04/25/2023 11:40 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): Discussed the patient's BMI. The BMI is above average. BMI management plan is completed. BMI Follow-up includes: nutrition counseling, exercise counseling and education provided. Assessment & Plan (03/19/2023 9:19 PM MMD UNIT TEACHER): Discussed the patient's BMI. The BMI is above average. BMI management plan is completed. BMI Follow-up includes: nutrition counseling, exercise counseling and education provided. Assessment & Plan (11/30/2022 8:34 PM CDT): Discussed the patient's BMI. The BMI is above average. BMI management plan is completed. BMI Follow-up includes: nutrition counseling, exercise counseling and education provided. Morbid obesity 11/24/2022 08/23/2023 Assessment & Plan (06/26/2023 10:28 PM CDT): Discussed the patient's BMI. The BMI is above average. BMI management plan is completed. BMI Follow-up includes: nutrition counseling, exercise counseling and education provided. Patient has an obesity-related condition (not limited to: hypertension, obstructive sleep apnea, osteoarthritis, hyperlipidemia, diabetes, etc.). Therefore, morbid obesity may be documented for patients with a BMI between 35.00-39.99. Assessment & Plan (05/14/2023 8:39 PM MMD UNIT TEACHER): Discussed the patient's BMI. The BMI is above average. BMI management plan is completed. BMI Follow-up includes: nutrition counseling, exercise counseling and education provided. Patient has an obesity-related condition (not limited to: hypertension, obstructive sleep apnea, osteoarthritis, hyperlipidemia, diabetes, etc.). Therefore, morbid obesity may be documented for patients with a BMI between 35.00-39.99. Assessment & Plan (05/14/2023 7:36 PM MMD UNIT TEACHER): Discussed the patient's BMI. The BMI is above average. BMI management plan is completed. BMI Follow-up includes: nutrition counseling, exercise counseling and education provided. Patient has an obesity-related condition (not limited to: hypertension, obstructive sleep apnea, osteoarthritis, hyperlipidemia, diabetes, etc.). Therefore, morbid obesity may be documented for patients with a BMI between 35.00-39.99. Assessment & Plan (05/14/2023 8:00 PM MMD UNIT TEACHER): Discussed the patient's BMI. The BMI is above average. BMI management plan is completed. BMI Follow-up includes: nutrition counseling, exercise counseling and education provided. Patient has an obesity-related condition (not limited to: hypertension, obstructive sleep apnea, osteoarthritis, hyperlipidemia, diabetes, etc.). Therefore, morbid obesity may be documented for patients with a BMI between 35.00-39.99. Assessment & Plan (03/19/2023 9:19 PM MMD UNIT TEACHER): Discussed the patient's BMI. The BMI is above average. BMI management plan is completed. BMI Follow-up includes: nutrition counseling, exercise counseling and education provided. Patient has an obesity-related condition (not limited to: hypertension, obstructive sleep apnea, osteoarthritis, hyperlipidemia, diabetes, etc.). Therefore, morbid obesity may be documented for patients with a BMI between 35.00-39.99. Assessment & Plan (11/30/2022 8:34 PM CDT): Discussed the patient's BMI. The BMI is above average. BMI management plan is completed. BMI Follow-up includes: nutrition counseling, exercise counseling and education provided. Patient has an obesity-related condition (not limited to: hypertension, obstructive sleep apnea, osteoarthritis, hyperlipidemia, diabetes, etc.). Therefore, morbid obesity may be documented for patients with a BMI between 35.00-39.99. Chronic pain of left ankle 08/22/2022 1 Assessment & Plan (08/22/2022 7:19 PM CDT): Patient experiencing pain in the left ankle. I suspect she had a inversion injury with 1 of her falls. Will start with an x-ray of the ankle and foot to rule out any bony abnormalities. If this is normal may benefit from physical therapy and or referral to Orthopedics. Encouraged hard soled shoe until x-rays are available encouraged ice elevation and rest Foot pain, left 08/22/2022 01/08/2024 Assessment & Plan (08/22/2022 7:19 PM CDT): Patient has a point tender spot in her arch of the left foot. About the size of a dime. No known injury. It is extremely tender to the point where she loses her balance she does not want to bear weight on it. Will get x-ray of the ankle and foot and probably will need to see orthopedics. Cigarette smoker 08/22/2022 11/24/2022 Assessment & Plan (08/22/2022 7:20 PM CDT): Encouraged smoking cessation. Discussed 3 minutes. Reviewed options for assistance with cessation. 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 Pt declines assistance at this time but may contact the office at anytime for further help as they desire. Morbid obesity 08/18/2022 11/24/2022 Assessment & Plan (08/22/2022 7:17 PM CDT): Discussed the patient's BMI. The BMI is above average. BMI management plan is completed. BMI Follow-up includes: nutrition counseling, exercise counseling and education provided. Patient has an obesity-related condition (not limited to: hypertension, obstructive sleep apnea, osteoarthritis, hyperlipidemia, diabetes, etc.). Therefore, morbid obesity may be documented for patients with a BMI between 35.00-39.99. BMI 37.0-37.9, adult 08/18/2022 023 Assessment & Plan (08/18/2022 3:13 PM CDT): Discussed the patient's BMI. The BMI is above average. BMI management plan is completed. BMI Follow-up includes: nutrition counseling, exercise counseling and education provided. Dysuria 05/03/2022 01/08/2024 Assessment & Plan (05/04/2022 1:51 PM MMD UNIT TEACHER): Send urine for culture Right foot pain 02/14/2022 01/08/2024 Assessment & Plan (05/02/2022 10:54 PM MMD UNIT TEACHER): This is a significant, separately identifiable problem that was evaluated and managed on the same day as the wellness exam Patient has had persistent pain. She would like another evaluation. Will make referral to Dr. Avalos. Encouraged her to bring her MRI disc with her for evaluation. Patient is in agreement with the plan Assessment & Plan (02/14/2022 7:09 PM MMD UNIT TEACHER): Patient with persistent right foot pain. Recommend seen Podiatry for further evaluation Chronic pain of left knee 02/14/2022 Assessment & Plan (02/14/2022 7:10 PM MMD UNIT TEACHER): Difficult to know if her knee is referred knee pain from problems with the foot versus other etiology. Because of the localized medial side pain will go ahead and start some physical therapy but continue to monitor closely. If patient's persist may consider referral to ortho. Patient is in agreement with the plan Gastroesophageal reflux dise ase without esophagitis 02/13/2022 01/08/2024 Assessment & Plan (07/29/2022 9:29 AM CDT): Chronic GERD, patient takes PPI b.i.d. with control of symptoms. States when she decreases to once daily, symptoms get worse. -continue PPI b.i.d. -RECOMMENDATIONS given include: anti-reflux maneuvers, Avoid acidic foods like oranges and tomatoes., avoidance of spicy foods, avoid eating 3-4 hours before bed, elevation of the head of the bed, and weight loss Assessment & Plan (05/02/2022 10:51 PM MMD UNIT TEACHER): Continue PPI Assessment & Plan (02/13/2022 11:04 PM MMD UNIT TEACHER): PPI prn Obesity (BMI 30-39.9) 01/21/20222021 Assessment & Plan (01/21/2022 9:02 AM CDT): Obesity is unchanged. Discussed the patient's BMI. The BMI is above average. BMI management plan is completed. BMI Follow-up includes: nutrition counseling, exercise counseling and education provided. BMI 36.0-36.9,adult 01/21/2022 08/19/19 Assessment & Plan (05/03/2022 1:11 PM MMD UNIT TEACHER): Discussed the patient's BMI. The BMI is above average. BMI management plan is completed. BMI Follow-up includes: nutrition counseling, exercise counseling and education provided. Assessment & Plan (05/02/2022 10:51 PM MMD UNIT TEACHER): Discussed the patient's BMI. The BMI is above average. BMI management plan is completed. BMI Follow-up includes: nutrition counseling, exercise counseling and education provided. Assessment & Plan (02/14/2022 7:08 PM MMD UNIT TEACHER): Discussed the patient's BMI. The BMI is above average. BMI management plan is completed. BMI Follow-up includes: nutrition counseling, exercise counseling and education provided. Assessment & Plan (01/21/2022 9:02 AM CDT): Obesity is unchanged. Discussed the patient's BMI. The BMI is above average. BMI management plan is completed. BMI Follow-up includes: nutrition counseling, exercise counseling and education provided. Morbid obesity 12/13/2021 08/18/2022 Assessment & Plan (05/04/2022 1:50 PM MMD UNIT TEACHER): Discussed the patient's BMI. The BMI is above average. BMI management plan is completed. BMI Follow-up includes: nutrition counseling, exercise counseling and education provided. Patient has an obesity-related condition (not limited to: hypertension, obstructive sleep apnea, osteoarthritis, hyperlipidemia, diabetes, etc.). Therefore, morbid obesity may be documented for patients with a BMI between 35.00-39.99. Assessment & Plan (05/02/2022 10:51 PM MMD UNIT TEACHER): Discussed the patient's BMI. The BMI is above average. BMI management plan is completed. BMI Follow-up includes: nutrition counseling, exercise counseling and education provided. Patient has an obesity-related condition (not limited to: hypertension, obstructive sleep apnea, osteoarthritis, hyperlipidemia, diabetes, etc.). Therefore, morbid obesity may be documented for patients with a BMI between 35.00-39.99. Assessment & Plan (02/14/2022 7:08 PM MMD UNIT TEACHER): Discussed the patient's BMI. The BMI is above average. BMI management plan is completed. BMI Follow-up includes: nutrition counseling, exercise counseling and education provided. Patient has an obesity-related condition (not limited to: hypertension, obstructive sleep apnea, osteoarthritis, hyperlipidemia, diabetes, etc.). Therefore, morbid obesity may be documented for patients with a BMI between 35.00-39.99. Assessment & Plan (02/13/2022 10:49 PM MMD UNIT TEACHER): Discussed the patient's BMI. The BMI is above average. BMI management plan is completed. BMI Follow-up includes: nutrition counseling, exercise counseling and education provided. Patient has an obesity-related condition (not limited to: hypertension, obstructive sleep apnea, osteoarthritis, hyperlipidemia, diabetes, etc.). Therefore, morbid obesity may be documented for patients with a BMI between 35.00-39.99. Assessment & Plan (12/13/2021 3:38 PM CDT): Discussed the patient's BMI. The BMI is above average. BMI management plan is completed. BMI Follow-up includes: nutrition counseling, exercise counseling and education provided. Patient has an obesity-related condition (not limited to: hypertension, obstructive sleep apnea, osteoarthritis, hyperlipidemia, diabetes, etc.). Therefore, morbid obesity may be documented for patients with a BMI between 35.00-39.99. BMI 36.0-36.9,adult 11/26/2021 01/22/20 Assessment & Plan (11/26/2021 10:35 AM CDT): Obesity is unchanged. Discussed the patient's BMI. The BMI is above average. BMI management plan is completed. BMI Follow-up includes: nutrition counseling, exercise counseling and education provided. Morbid obesity 11/03/2021 11/26/2021 Assessment & Plan (11/23/2021 6:14 PM CDT): Obesity is unchanged. Discussed the patient's BMI. The BMI is above average. BMI management plan is completed. BMI Follow-up includes: nutrition counseling, exercise counseling and education provided. Patient has an obesity-related condition (not limited to: hypertension, obstructive sleep apnea, osteoarthritis, hyperlipidemia, diabetes, etc.). Therefore, morbid obesity may be documented for patients with a BMI between 35.00-39.99. BMI 35.0-35.9,adult 11/03/2021 08/23/19 Assessment & Plan (06/26/2023 10:27 PM CDT): Discussed the patient's BMI. The BMI is above average. BMI management plan is completed. BMI Follow-up includes: nutrition counseling, exercise counseling and education provided. Assessment & Plan (05/14/2023 8:33 PM MMD UNIT TEACHER): Discussed the patient's BMI. The BMI is above average. BMI management plan is completed. BMI Follow-up includes: nutrition counseling, exercise counseling and education provided. Patient has an obesity-related condition (not limited to: hypertension, obstructive sleep apnea, osteoarthritis, hyperlipidemia, diabetes, etc.). Therefore, morbid obesity may be documented for patients with a BMI between 35.00-39.99. Assessment & Plan (05/14/2023 7:37 PM MMD UNIT TEACHER): Discussed the patient's BMI. The BMI is above average. BMI management plan is completed. BMI Follow-up includes: nutrition counseling, exercise counseling and education provided. Assessment & Plan (11/03/2021 9:50 AM CDT): Obesity is unchanged. Discussed the patient's BMI. The BMI is above average. BMI management plan is completed. BMI Follow-up includes: nutrition counseling, exercise counseling and education provided. Obesity (BMI 30-39.9) 05/05/20212021 Assessment & Plan (05/05/2021 3:21 PM MMD UNIT TEACHER): Obesity is unchanged. Discussed the patient's BMI. The BMI is above average. BMI management plan is completed. BMI Follow-up includes: nutrition counseling, exercise counseling and education provided. Abnormal stress test 02/03/2021 021 Abnormal EKG 12/12/2020 03/05/2021 Assessment & Plan (12/14/2020 2:48 AM CDT): Will refer to Cardio to complete full workup due to her Chest pain, smoking history, Autoimmune history and EKG. Reviewed warning signs with patient and stressed if she has CP, exertional CP, increased SOB or syncope she is to immediately go to the ER for evaluation. She voices understanding. Cigarette nicotine dependenc e with nicotine-induced disorder 12/12/2020 03/18/2021 Obesity (BMI 30-39.9) 11/17/20202021 Assessment & Plan (11/17/2020 11:19 AM CDT): Obesity is unchanged. Discussed the patient's BMI. The BMI is above average. BMI management plan is completed. BMI Follow-up includes: nutrition counseling, exercise counseling and education provided. BMI 38.0-38.9,adult 11/17/2020 05/05/19 22 Assessment & Plan (11/17/2020 11:19 AM CDT): Obesity is unchanged. Discussed the patient's BMI. The BMI is above average. BMI management plan is completed. BMI Follow-up includes: nutrition counseling, exercise counseling and education provided. BMI 37.0-37.9, adult 09/24/2020 021 Assessment & Plan (11/06/2020 8:19 AM CDT): Obesity is unchanged. Discussed the patient's BMI. The BMI is above average. BMI management plan is completed. BMI Follow-up includes: nutrition counseling, exercise counseling and education provided. Assessment & Plan (09/24/2020 2:30 PM CDT): Obesity is unchanged. Discussed the patient's BMI. The BMI is above average. BMI management plan is completed. BMI Follow-up includes: nutrition counseling, exercise counseling and education provided. BMI 37.0-37.9, adult 06/08/2020 024 Overview (08/04/2020): Obesity is unchanged. Discussed the patient's BMI. The BMI is above average. BMI management plan is completed. BMI Follow-up includes: nutrition counseling, exercise counseling and education provided. Assessment & Plan (08/28/2023 8:43 PM CDT): Discussed the patient's BMI. The BMI is above average. BMI management plan is completed. BMI Follow-up includes: nutrition counseling, exercise counseling and education provided. Assessment & Plan (08/04/2020 3:42 PM CDT): Obesity is unchanged. Discussed the patient's BMI. The BMI is above average. BMI management plan is completed. BMI Follow-up includes: nutrition counseling, exercise counseling and education provided. Assessment & Plan (06/08/2020 7:59 PM CDT): Obesity is unchanged. Discussed the patient's BMI. The BMI is above average. BMI management plan is completed. BMI Follow-up includes: nutrition counseling, exercise counseling and education provided. Annual physical exam 01/15/2020 024 Assessment & Plan (05/02/2022 10:47 PM MMD UNIT TEACHER): Encouraged healthy lifestyle, good nutrition and exercise. Encouraged Calcium and Vitamin D and weight bearing exercise for bone health. Reviewed immunizations Reviewed age appropirate screenings. Assessment & Plan (03/18/2021 12:12 PM MMD UNIT TEACHER): Encouraged healthy lifestyle, good nutrition and exercise. Encouraged Calcium and Vitamin D and weight bearing exercise for bone health. Reviewed immunizations Reviewed age appropirate screenings. Assessment & Plan (01/15/2020 10:01 PM CDT): Encouraged healthy lifestyle, good nutrition and exercise. Encouraged Calcium and Vitamin D and weight bearing exercise for bone health. Reviewed immunizations Reviewed age appropirate screenings. Left foot pain 04/08/2019 10/13/2019 Assessment & Plan (04/08/2019 5:55 PM MMD UNIT TEACHER): Left foot/ankle/achilles pain. Appt set with Dr. Vaz for 04/09. Advised to let his office obtain imaging. Encouraged her to use a hard sole shoe as tolerated. Keep elevated and ice the area. She is on Mobic 7.5mg. May increase to bid if needed. No other NSAIDs. Acute left ankle pain 04/06/20192019 Vaginal odor 01/14/2019 10/13/2019 Assessment & Plan (01/14/2019 3:18 PM CDT): JOSE: No yeast Wet smear: Clue cells. No trich Metrogel x 5 nights and Diflucan on Day 2ad 5 Increase fluids/perineal care. If persists, may consider estrogen cream. Check labs to rule out other metabolic cause. Vulvar irritation 01/14/2019 10/13/2019 Assessment & Plan (01/14/2019 3:18 PM CDT): Lotrisone externally prn Annual physical exam 12/28/2018 020 Assessment & Plan (01/14/2019 3:19 PM CDT): Encouraged healthy lifestyle, good nutrition and exercise. Encouraged Calcium and Vitamin D and weight bearing exercise for bone health. Reviewed immunizations Reviewed age appropirate screenings. Check with Rheum regarding flu vaccine Lupus 12/22/2018 01/08/2024 Assessment & Plan (11/30/2022 8:35 PM CDT): Reviewed with patient that she is to follow up with her media assistant to determine proper use of her biologic since she will be on antibiotics. She states she will contact them but usually she has to hold it through the course of the antibiotic. Assessment & Plan (05/04/2022 1:47 PM MMD UNIT TEACHER): Continue per Rheumatology. Patient just started Enbrel Assessment & Plan (05/02/2022 10:47 PM MMD UNIT TEACHER): Continue per [facility] Assessment & Plan (02/13/2022 10:47 PM MMD UNIT TEACHER): Continue per Rheumatology Assessment & Plan (03/18/2021 12:11 PM MMD UNIT TEACHER): Continue per Rheumatology. Assessment & Plan (01/15/2020 10:00 PM CDT): Continue per Rheumatology Assessment & Plan (01/14/2019 3:18 PM CDT): Continue per Rheumatology Former smoker 10/15/2018 11/24/2022 Cough 10/15/2018 10/13/2019 BMI 38.0-38.9,adult 10/09/2018 05/21/19 21 Assessment & Plan (01/15/2020 10:00 PM CDT): Obesity is unchanged. Discussed the patient's BMI. The BMI is above average. BMI management plan is completed. BMI Follow-up includes: nutrition counseling, exercise counseling and education provided. Assessment & Plan (10/13/2019 6:51 PM CDT): Obesity is unchanged. Discussed the patient's BMI. The BMI is above average. BMI management plan is completed. BMI Follow-up includes: nutrition counseling, exercise counseling and education provided. Assessment & Plan (04/05/2019 10:30 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): Obesity is unchanged. Discussed the patient's BMI. The BMI is above average. BMI management plan is completed. BMI Follow-up includes: nutrition counseling, exercise counseling and education provided. Assessment & Plan (12/28/2018 8:37 AM CDT): Obesity is unchanged. Discussed the patient's BMI. The BMI is above average. BMI management plan is completed. BMI Follow-up includes: nutrition counseling, exercise counseling and education provided. Assessment & Plan (10/09/2018 4:05 PM CDT): Obesity is unchanged. Discussed the patient's BMI. The BMI is above average; BMI management plan is completed. General weight loss/lifestyle modification strategies discussed (elicit support from others; identify saboteurs; non-food rewards, etc). Encouraged increased exercise. Morbid obesity 10/09/2018 05/14/2023 Overview (05/14/2023): Obesity is unchanged. Discussed the patient's BMI. The BMI is above average. BMI management plan is completed. BMI Follow-up includes: nutrition counseling, exercise counseling and education provided. Patient has an obesity-related condition (not limited to: hypertension, obstructive sleep apnea, osteoarthritis, hyperlipidemia, diabetes, etc.). Therefore, morbid obesity may be documented for patients with a BMI between 35.00-39.99. Assessment & Plan (08/04/2020 3:41 PM CDT): Obesity is unchanged. Discussed the patient's BMI. The BMI is above average. BMI management plan is completed. BMI Follow-up includes: nutrition counseling, exercise counseling and education provided. Assessment & Plan (06/08/2020 8:02 PM CDT): Obesity is unchanged. Discussed the patient's BMI. The BMI is above average. BMI management plan is completed. BMI Follow-up includes: nutrition counseling, exercise counseling and education provided. Assessment & Plan (01/15/2020 10:00 PM CDT): Obesity is unchanged. Discussed the patient's BMI. The BMI is above average. BMI management plan is completed. BMI Follow-up includes: nutrition counseling, exercise counseling and education provided. Assessment & Plan (10/13/2019 6:51 PM CDT): Obesity is unchanged. Discussed the patient's BMI. The BMI is above average. BMI management plan is completed. BMI Follow-up includes: nutrition counseling, exercise counseling and education provided. Assessment & Plan (04/05/2019 10:30 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): Obesity is unchanged. Discussed the patient's BMI. The BMI is above average. BMI management plan is completed. BMI Follow-up includes: nutrition counseling, exercise counseling and education provided. Assessment & Plan (12/28/2018 8:37 AM CDT): Obesity is unchanged. Discussed the patient's BMI. The BMI is above average. BMI management plan is completed. BMI Follow-up includes: nutrition counseling, exercise counseling and education provided. Assessment & Plan (10/09/2018 4:05 PM CDT): Obesity is unchanged. Discussed the patient's BMI. The BMI is above average; BMI management plan is completed. General weight loss/lifestyle modification strategies discussed (elicit support from others; identify saboteurs; non-food rewards, etc). Encouraged increased exercise. Bronchitis 10/09/2018 10/13/2019 Assessment & Plan (10/15/2018 5:53 PM CDT): Nebulizer with Duoneb given in office. Pt was able to breath easier and move more air after the treatment. Check CXR. Start Levaquin and increased po prednisone to 40mg x 3 days. ProAir prn. If sxs persist, may need Symbicort added or pending CXR results. She has been off the MTCX and will restart when feeling better. Right foot pain 09/18/2018 04/08/2019 Assessment & Plan (09/18/2018 12:23 AM CDT): Check foot xray. Ice. Elevation. Mobic prn Wear hard soled shoe for support. Immunizations Immunization Administration Dates Next Due Influenza, Unspecified 03/21/2023(Deferr ed: Patient Refused),03/21/2023(Deferred: Patient Refused),03/21/2023(Deferred: Patient Refused),04/21/2022(Deferred: Patient Refused),12/21/2021(Deferred: Patient Refused),04/21/2021(Deferred: Patient Refused),01/15/2020(Deferred: Patient Refused),12/19/2018(Deferred: Patient Refused) Pneumococcal Conjugate Pcv20 07/31/2024 Social History Tobacco Use Types Packs/Day Years Used Date Smoking Tobacco: Every Day Cigarettes 0.1 31.5 Started: 1998 Smokeless Tobacco: Never Tobacco Cessation:Ready to Q uit: Not Asked; Counseling Given: Not Answered Alcohol Use Standard Drinks/Week Comments Never 0 [...] on file 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 Gender Identity Female 09/05/2020 9:47 AM CDT Sexual Orientation Straight 09/05/2020 9: 47 AM CDT Occupation Industry Job Start Date Job End Date Disabled Not on file Not on file Not on file Last Filed Vital Signs Vital Sign Reading Time Taken Comments Blood Pressure 105/72 07/20/2024 8:33 AM CDT Pulse 71 07/20/2024 8:33 AM CDT Temperature 36.5 C (97.7 F) 12/26/2023 8:27 AM CDT Respiratory Rate 22 12/26/2023 8:27 AM CDT Oxygen Saturation 100% 07/20/2024 8:33 AM CDT Inhaled Oxygen Concentration - - Weight 95.3 kg (210 lb) 07/20/2024 8:33 AM CDT Height 162.6 cm (5' 4) 07/20/2024 8:33 AM CDT Body Mass Index 36.05 07/20/2024 8:33 AM CDT Plan of Treatment Not on file Medical Devices Implanted Type Area Windows Security Analyst Device Identifier Shelf Expiration Date Model / Serial / Lot [employer] Photofix Bovine 6x8 Pericardium Pfp 6x8 - S/ - [id number] Implanted:Qty: 1 on 09/29/2021 by Bradley Pitts MD at [facility] Graft Right: Chest [employer] Inc [id number] 06/14/2023 PFP 6X8 / / / [id number] Cerapedics Inc 700-025 I Factor Allograft Putty Syringe Graft 2.5cc Bone - [id number] Implanted:Qty: 1 on 04/15/2020 by Jong Chavez MD at [facility] N/A: Spine Cervical Ceraped[employer] Inc 700-025 / / Depuy Spine [id number] 8mm 4d Large Cage Spinal Eit Sterile Latex Free Cervical - [id number] - [id number] Implanted:Qty: 1 on 04/15/2020 by Jong Chavez MD at [facility] N/A: Spine Cervical Depuy Synthes Spine [id number] / [id number] / [id number] Da Biomet Inc [id number] Maxan 4mm 14mm Variable Angle Self Drill Spine Screw Bone - [id number] Implanted:Qty: 1 on 04/15/2020 by Jong Chavez MD at [facility] N/A: Spine Cervical [employer] [id number] / / Da [employer] Inc [id number] Maxan 9mm Cervical Spine Plate Bone - [id number] Implanted:Qty: 1 on 04/15/2020 by Jong Chavez MD at [facility] N/A: Spine Cervical [employer] [id number] / / [employer] [id number] Maxan 4.5mm 14mm Variable Angle Spine Screw Bone - [id number] Implanted:Qty: 3 on 04/15/2020 by Jong Chavez MD at [facility] N/A: Spine Cervical [employer] [id number] / / Procedures Procedure Name Priority Date/Time Associated Diagnosis Comments BLOOD MISC TO HORNELL Routine 08/30/2024 5: 41 PM CDT STREP PNEUMONIAE ANTIBODY SEROTYPES Routine 08/30/2024 12:00 PM CDT Hypogammaglobulin emia Recurrent sinus infections BLOOD MISC TO HORNELL Routine 07/20/2024 9: 25 AM CDT IMMUNOGLOBULIN IGG SUBCLASSES Routine 07/20/2024 9:25 AM CDT Hypogammaglobulin emia Recurrent sinus infections STREP PNEUMONIAE ANTIBODY SEROTYPES Routine 07/20/2024 9:25 AM CDT Hypogammaglobulin emia Recurrent sinus infections IMMUNE COMPETENCE Routine 07/20/2024 9:2 5 AM CDT Hypogammaglobulin emia Recurrent sinus infections IGM Routine 07/20/2024 9:25 AM CDT Hypogammaglobulin emia Recurrent sinus infections IGA Routine 07/20/2024 9:25 AM CDT Hypogammaglobulin emia Recurrent sinus infections IGE Routine 07/20/2024 9:25 AM CDT Hypogammaglobulin emia Recurrent sinus infections SCREENING MAMMOGRAM BILATERAL W JORDAN Schedule Routine, Read Routine (OP Routine) 02/06/2024 8:59 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 Breast cancer screening by mammogram COLONOSCOPY 01/21/2023 9:50 AM CDT from Last 3 Months or Most Recently Relevant to Health Maintenance Results * BLOOD MISC TO HORNELL (08/30/2024 5:41 PM CDT) Test name, chem TTIGS [place] [facility] Misc See Footnote EVERARDO DOUGLASS Comment: Test Result Flag Unit RefValue Tetanus Toxoid IgG Ab, S Tetanus IgG Ab Positive REFERENCE VALUE Vaccinated: Positive (>= 0.01 IU/mL) Unvaccinated: Negative (< 0.01 IU/mL) Tetanus IgG Value 1.04 IU/mL ADDITIONAL INFORMATION This test was developed and its performance characteristics determined by [facility] in a manner consistent with CLIA requirements. This test has not been cleared or approved by the U.S. Food and Drug Administration. Test Performed by: [facility] [address] [place] [address] Slipman: Zonia Do Ph.D.; CLIA# [id number] Blood 08/30/2024 5:41 PM CDT 08/31/2024 2:31 PM CDT Narrative [facility] - 09/04/2024 1:37 PM CDT TETANUS AB IGG Yannick Rincon MD LAB [place]LOOD [place] [address] [address] Department [place] [address] [facility] * Strep pneumoniae antibody serotypes (08/30/2024 12:00 PM CDT) S. pneumo Type 1 (1) 0.7 >=1.0 mcg/mL [facility] [place] [facility] S. pneumo Type 2 (2) 0.8 >=1.0 mcg/mL [facility] S. pneumo Type 3 (3) 0.4 >=1.0 mcg/mL [facility] S. pneumo Type 4 (4) 0.7 >=1.0 mcg/mL [facility] S. pneumo Type 5 (5) 0.8 >=1.0 mcg/mL [facility] S. pneumo Type 8 (8) 2.1 >=1.0 mcg/mL [facility] S. pneumo Type 9N (9) 1.3 >=1.0 mcg/mL [facility] S. pneumo Type 12F (12) See Footnote >=1.0 mcg/mL [facility] Comment: No result available due to non-linear dilution response for this serotype. See Interpretation. S. pneumo Type 14 (14) 0.9 >=1.0 mcg/mL [facility] S. pneumo Type 17F (17) 1.6 >=1.0 mcg/mL [facility] S. pneumo Type 19F (19) 5.4 >=1.0 mcg/mL [facility] S. pneumo Type 20 (20) 5.3 >=1.0 mcg/mL [facility] S. pneumo Type 22F (22) 4.6 >=1.0 mcg/mL [facility] S. pneumo Type 23F (23) 1.7 >=1.0 mcg/mL [facility] S. pneumo Type 6B (26) 1.5 >=1.0 mcg/mL [facility] S. pneumo Type 10A (34) 4.6 >=1.0 mcg/mL [facility] S. pneumo Type 11A (43) 1.9 >=1.0 mcg/mL [facility] S. pneumo Type 7F (51) 2.3 >=1.0 mcg/mL [facility] S. pneumo Type 15B (54) 3.2 >=1.0 mcg/mL [facility] S. pneumo Type 18C (56) 6.2 >=1.0 mcg/mL [facility] S. pneumo Type 19A (57) 4.6 >=1.0 mcg/mL [facility] S. pneumo Type 9V (68) 0.6 >=1.0 mcg/mL [facility] S. pneumo Type 33F (70) 4.5 >=1.0 mcg/mL [facility] Pneum Ab 23 interp See Footnote EVERARDO Francis H Comment: Unable to quantitate serotype 12F (12) due to nonlinear dilution response of patient sample. Overall interpretation of pneumococcal antibody serology panel can be based on the reported 22 serotypes. Evaluation of the immune response following pneumococcal vaccination can be assessed by measuring serotype-specific Streptococcus pneumonia IgG antibodies. Either of the following conditions is consistent with a normal response to Streptococcus pneumonia vaccination: 1. When comparing pre and post-vaccination samples, antibody concentrations increased by at least 2-fold for either >50% of serotypes in children <6 years of age or >70% of serotypes for individuals >6 years of age. 2. In either a pre- or post-vaccination sample, antibody concentrations >=1.0 mcg/mL for either >50% of serotypes for children <6 years of age or >70% of serotypes for individuals >6 years of age. Results >=1.0 mcg/mL or those showing a >=2-fold change are consistent with an immune response, but are not necessarily sufficient to provide protection against infection. ADDITIONAL INFORMATION This test was developed and its performance characteristics determined by [facility] in a manner consistent with CLIA requirements. This test has not been cleared or approved by the U.S. Food and Drug Administration. Test Performed by: [facility] [place] [address] Slipman: Zonia Do Ph.D.; CLIA# [id number] Blood 08/30/2024 12:0 0 PM CDT 08/30/2024 5:42 PM CDT Yannick Rincon MD LAB BLOOD ORDERABLES [facility] Result EVERARDO DOUGLASS [address] [address] Department [place] [address] [facility] * BLOOD MISC TO HORNELL (07/20/2024 9:25 AM CDT) Test name, chem TTIGS [place] ref Lab Misc See Footnote EVERARDO DOUGLASS Comment: Test Result Flag Unit RefValue Tetanus Toxoid IgG Ab, S Tetanus IgG Ab Positive REFERENCE VALUE Vaccinated: Positive (>= 0.01 IU/mL) Unvaccinated: Negative (< 0.01 IU/mL) Tetanus IgG Value 1.31 IU/mL ADDITIONAL INFORMATION This test was developed and its performance characteristics determined by [facility] in a manner consistent with CLIA requirements. This test has not been cleared or approved by the U.S. Food and Drug Administration. Test Performed by: [place] [address] Slipman: Zonia Do Ph.D.; CLIA# [id number] Blood 07/20/2024 9:25 AM CDT 07/23/2024 8:59 AM CDT [facility] - 07/25/2024 12:12 PM CDT TETANUS AB IgG Yannick Rincon MD LAB BLOOD ORDERABLES nal Result [facility] [address] [address] Department [place] [address] [facility] * (ABNORMAL) Immunoglobulin IgG subclasses (07/20/2024 9:25 AM CDT) [facility] IgG 523(L) 767 - 1590 mg/dL [place] [facility] IgG, fraction 1 255(L) 341 - 894 mg/dL [facility] IgG, fraction 2 228 171 - 632 mg/dL [facility] IgG, fraction 3 50.3 18.4 - 106.0 mg/dL [facility] IgG, fraction 4 8.8 2.4 - 121.0 mg/dL [facility] Comment: Test Performed by: [place] [address] Slipman: Zonia Do Ph.D.; CLIA# [id number] Blood 07/20/2024 9:25 AM CDT 07/20/2024 8:54 PM CDT us Yannick Rincon MD LAB BLOOD ORDERABLES Fi nal Result [facility] [address] [address] Department [place] [address] [place] [facility] * (ABNORMAL) Immune competence (07/20/2024 9:25 AM CDT) CD3 pct 78 60 - 88 % Comment:Testing performed by : [facility], [address] [facility], [address] CD3 Absolute 1,752 661 - 1,963 cells/mcL [facility] Comment:Testing performed by : [facility], [address] [facility], [address] CD4 pct 56 31 - 64 % [facility] Comment:Testing performed by : [facility], [address] [place] [address], [address] CD4 Absolute 1,220 365 - 1,294 cells/mcL [facility] Comment:Testing performed by : [facility], [address] [facility], [address] CD8 pct 22 12 - 40 % [facility] Comment:Testing performed by : [facility], [address] [facility], [address] CD8 Absolute 486 187 - 781 cells/mcL [facility] Comment:Testing performed by : [facility], [address] [place] [address]., [address] CD19 pct 18 6 - 25 % [facility] CH Comment:Testing performed by : [facility], [address] [place]., [address] CD19 Absolute 415 86 - 488 cells/mcL [facility] CH Comment:Testing performed by : [facility], [address] [facility], [address] [id number] pct 3(L) 5 - 25 % [facility] CH Comment:Testing performed by : [facility], 1 [facility], [place]., [address] [id number] Absolute 71(L) 76 - 467 cells/mcL [facility] CH Comment:Testing performed by : [facility], [address] [place]., [address] CD4/CD8 ratio 2.5 [facility] CH Comment:Testing performed by : [facility], [address] [facility], [place]., [address] Blood 07/20/2024 9:25 AM CDT 07/23/2024 10:25 AM CDT us Yannick Rincon MD LAB BLOOD ORDER[place] [address] [address] Garcia Department [place] [address] * Strep pneumoniae antibody serotypes (07/20/2024 9:25 AM CDT) S. pneumo Type 1 (1) 0.8 >=1.0 mcg/mL [place] [facility] S. pneumo Type 2 (2) 0.9 >=1.0 mcg/mL [facility] S. pneumo Type 3 (3) 0.4 >=1.0 mcg/mL [facility] S. pneumo Type 4 (4) 0.6 >=1.0 mcg/mL [facility] S. pneumo Type 5 (5) 0.6 >=1.0 mcg/mL [facility] S. pneumo Type 8 (8) 2.4 >=1.0 mcg/mL [facility] S. pneumo Type 9N (9) 1.3 >=1.0 mcg/mL [facility] S. pneumo Type 12F (12) See Footnote >=1.0 mcg/mL [facility] Comment: No result available due to non-linear dilution response for this serotype. See Interpretation. S. pneumo Type 14 (14) 0.7 >=1.0 mcg/mL [facility] S. pneumo Type 17F (17) 1.6 >=1.0 mcg/mL [facility] S. pneumo Type 19F (19) 5.2 >=1.0 mcg/mL [facility] S. pneumo Type 20 (20) 5.4 >=1.0 mcg/mL [facility] S. pneumo Type 22F (22) 3.0 >=1.0 mcg/mL [facility] S. pneumo Type 23F (23) 1.8 >=1.0 mcg/mL [facility] S. pneumo Type 6B (26) 1.1 >=1.0 mcg/mL [facility] S. pneumo Type 10A (34) 2.2 >=1.0 mcg/mL [facility] S. pneumo Type 11A (43) 0.5 >=1.0 mcg/mL [facility] S. pneumo Type 7F (51) 1.5 >=1.0 mcg/mL [facility] S. pneumo Type 15B (54) 2.9 >=1.0 mcg/mL [facility] S. pneumo Type 18C (56) 0.4 >=1.0 mcg/mL [facility] S. pneumo Type 19A (57) 4.5 >=1.0 mcg/mL [facility] S. pneumo Type 9V (68) 0.6 >=1.0 mcg/mL [facility] S. pneumo Type 33F (70) 4.5 >=1.0 mcg/mL [facility] Pneum Ab 23 interp See Footnote EVERARDO Adames Comment: Unable to quantitate serotype 12F (12) due to nonlinear dilution response of patient sample. Overall interpretation of pneumococcal antibody serology panel can be based on the reported 22 serotypes. Evaluation of the immune response following pneumococcal vaccination can be assessed by measuring serotype-specific Streptococcus pneumonia IgG antibodies. Either of the following conditions is consistent with a normal response to Streptococcus pneumonia vaccination: 1. When comparing pre and post-vaccination samples, antibody concentrations increased by at least 2-fold for either >50% of serotypes in children <6 years of age or >70% of serotypes for individuals >6 years of age. 2. In either a pre- or post-vaccination sample, antibody concentrations >=1.0 mcg/mL for either >50% of serotypes for children <6 years of age or >70% of serotypes for individuals >6 years of age. Results >=1.0 mcg/mL or those showing a >=2-fold change are consistent with an immune response, but are not necessarily sufficient to provide protection against infection. ADDITIONAL INFORMATION This test was developed and its performance characteristics determined by [facility] in a manner consistent with CLIA requirements. This test has not been cleared or approved by the U.S. Food and Drug Administration. Test Performed by: [facility] [address] [place] [address] Slipman: Zonia Do Ph.D.; CLIA# [id number] Blood 07/20/2024 9:25 AM CDT 07/20/2024 8:54 PM CDT us Yannick Rincon MD LAB BLOOD ORDERABLES Fi nal Result Performing Organization Address [facility] Co de Phone Number EVERARDO EVONNE [address] [place] [address] [facility] * IgE (07/20/2024 9:25 AM CDT) IgE 8 <=100 IUnits/mL Comment:Testing performed by : [facility], [address] [facility], [place]., [address] Blood 07/20/2024 9:25 AM CDT 07/21/2024 9:39 AM CDT Yannick Rincon MD LAB BLOOD ORDERABLES Fi nal Result Performing Organization Address City/[facility]/[place] [address] [address] Department [employer] [place] [address] * IgA (07/20/2024 9:25 AM CDT) Immunoglobulin A 126 70 - 400 mg/dL Blood 07/20/2024 9:25 AM CDT 07/20/2024 8:54 PM CDT us Yannick Rincon MD LAB BLOOD ORDERABLES Fi nal Result EVERARDO DOUGLASS [address] [address] Garcia [facility] [employer] [place] [address] * IgM (07/20/2024 9:25 AM CDT) Immunoglobulin M 148 40 - 150 mg/dL Blood 07/20/2024 9:25 AM CDT 07/20/2024 8:54 PM CDT Yannick Rincon MD LAB BLOOD ORDERABLES Fi nal Result Performing Organization Address [facility] Co de Phone Number EVERARDO DOUGLASS [phone] [address] Garcia Department [employer] [place] [address] * Screening Mammogram Bilateral W Jordan (02/06/2024 8:59 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 A 1 year screening mammogram is recommended. The patient has been or will be contacted. We recommend annual screening mammography for women at average risk of breast cancer beginning at age 40, based on guidelines of the [employer] (ACR Practice Parameter for the Performance of Screening and Diagnostic Mammography) and [employer]. For women with and elevated risk of breast cancer, please refer to the ACR Practice Parameter for specific screening recommendations. The patient will be entered into a reminder system with a target due date of 1 year for her next screening exam. Narrative 02/06/2024 10:03 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 Screening Mammogram Bilateral W Jordan: 02/06/24 The study was acquired using full field digital technology and interpreted from soft copy. 2D digital mammographic views, as well as 3D digital tomosynthesis were performed in the CC and MLO projections. CLINICAL: Breast cancer screening by mammogram. No relevant medical history has been documented for this patient. History of breast cancer in Paternal Grandmother. COMPARISONS: 02/03/2023 Screening Mammogram Bilateral W Jordan 02/01/2022 Screening Mammogram Bilateral W Jordan BREAST TISSUE: There are scattered areas of fibroglandular density. FINDINGS: No suspicious masses, suspicious calcifications, or other suspicious findings are seen within either breast. There has been no suspicious change. us Monalisa PETTY MAMMO PROCEDURES Final Result * COLONOSCOPY (01/21/2023 9:50 AM CDT) Anatomical Region Laterality Modality Other Narrative Procedure Note Derrek Mcgill MD - 01/21/2023 9:50 AM CDT [facility] Patient Name: Kelsie Vaughn Procedure Date: 01/21/2023 9:50 AM Date of : 1980 Admit Type: Outpatient Age: 42 Gender: Female Attending MD: Derrek Mcgill M.D. Room: [facility] ENDOSCOPY ROOM 06 Note Status: Finalized Procedure: Colonoscopy Indications: Diarrhea, Abnormal CT of the GI tract, History of colon polyps Referring MD: Monalisa John PA-C Providers: Derrek Mcgill M.D. Medicines: Monitored Anesthesia Care Complications: No immediate complications. Estimated Blood Loss: Estimated blood loss: none. Procedure: Pre-Anesthesia Assessment: - Prior to the procedure, a History and Physicalwas performed, and patient medications and allergieswere reviewed. The risks and benefits of the procedureand the sedation options and risks were discussed withthe patient. All questions were answered and informed consent was obtained. Patient identification and proposed procedure were verified. After reviewingthe risks and benefits, the patient was deemed in satisfactory condition to undergo the procedure.The anesthesia plan was to use monitored anesthesiacare (MAC). Immediately prior to administration of medications, the patient was re-assessed foradequacy to receive sedatives. The heart rate, respiratory rate, oxygen saturations, blood pressure, adequacyof pulmonary ventilation, and response to care were monitored throughout the procedure. The physical status of the patient was re-assessed after the procedure. The benefits, risks and alternatives of theprocedure and sedation were discussed and informed consentwas obtained. All questions were answered. Please referto the signed informed consent document in the medical record. The scope was passed under direct vision.The PCF-H180AL colonoscope was introduced through theanus and advanced to the terminal ileum. The colonoscopy was performed without difficulty. The patient tolerated the procedure well. The quality of thebowel preparation was good. Scope withdrawal time was 8 minutes. Prep was administered in a split dose. Findings: The perianal and digital rectal examinations were normal. The terminal ileum appeared normal. A diminutive polyp was found in the transverse colon. The polyp was removed with a cold biopsy forceps. Resection and retrieval were complete. A diminutive polyp was found in the sigmoid colon. The polyp wasremoved with a cold biopsy forceps. Resection and retrieval were complete. Non-bleeding internal hemorrhoids were found during retroflexion. The hemorrhoids were small. Biopsies for histology were taken with a cold forceps from the right colon and left colon for evaluation of microscopic colitis. The exam was otherwise without abnormality. Impression: - The examined portion of the ileum was normal. - One diminutive polyp in the transverse colon, removed with a cold biopsy forceps. Resected and retrieved. - One diminutive polyp in the sigmoid colon,removed with a cold biopsy forceps. Resected andretrieved. - Non-bleeding internal hemorrhoids. - The examination was otherwise normal. - Biopsies were taken with a cold forceps from the right colon and left colon for evaluation of microscopic colitis. Recommendation: - Patient has a contact number available for emergencies. The signs and symptoms of potential delayed complications were discussed with thepatient. Return to normal activities tomorrow. Written discharge instructions were provided to thepatient. - High fiber diet. - Continue present medications. - Await pathology results. - Repeat colonoscopy in 5 years for surveillance. - Return to GI clinic as previously scheduled. Derrek Mcgill M.D. Derrek Mcgill M.D. 01/21/2023 10:37:24 AM . Number of Addenda: 0 Note Initiated On: 01/21/2023 9:50 AM Recognized by the [employer] for promoting quality in endoscopy Derrek Mcgill MD ENDOSCOPY PROCEDURES Final Resul t from Last 3 Months or Most Recently Relevant to Health Maintenance [place] Advance [place] For more information, please contact: [phone] * Full Code (Latest Code Status on File) Date Activated Date Inactivated Comments 09/29/2021 5:49 PM 10/03/2021 1:26 AM Care Teams Professor Of Geology Relationship Specialty Start Date End Date Monalisa John PA [address] [place] [address] PCP - General Internal Medicine 08/22/18 Elizabeth Alvarez NP [address] [place], [place] [id number] Nurse Practitioner Urology 05/04/22
--- OUTSIDE RECORDS SUMMARY | 2024-10-07 20:21 | XMS_ITS | Encounter Summary ---
Author Organization [facility] Facility Care Team Providers Care Calculation Reviewer Name Role Phone Monalisa John Primary Care Provider [phone]- [phone] Elizabeth Alvarez NP Unavailable [phone] Encounter Details Date Type Department Care Team (Latest Contact Info) Description 11/02/2016 Orders Only [facility]INCONV Provider, MD [place] [address] [place] [address] Social History Tobacco Use Types Packs/Day Years Used Date Smoking Tobacco: Never Assessed Comments Unknown Sex and Gender Information Value Date Recorded Sex Assigned at Not on file 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 us Historical Provider Final Res ult documented in this encounter Visit Diagnoses Not on filedocumented in this encounter Additional Health Concerns Infection Onset Date Last Indicated Resolved Time COVID: Suspected 01/28/2021 01/28/2021 01/28/2021 5:41 PM TOMB MAKER HELPER COVID: Suspected 11/01/2023 11/01/2023 11/02/2023 3:05 AM CDT documented as of this encounter Care Teams Calculation Reviewer Relationship Specialty Start Date End Date Monalisa John PA [address] [place], [place] [phone] PCP - General Internal Medicine 08/22/18 Elizabeth Alvarez NP [address] [place], [place] [phone] Nurse Practitioner Urology 05/04/22 documented as of this encounter
--- OUTSIDE RECORDS SUMMARY | 2024-10-07 20:21 | XMS_ITS | Encounter Summary ---
Author Organization [facility] Facility Care Team Providers Care Can Bander Operator Name Role Phone Monalisa John Primary Care Provider [phone]- [phone] Elizabeth Alvarez NP Unavailable [phone] Encounter Details Date Type Department Care Team (Latest Contact Info) Description 07/17/2015 Orders Only [facility] CLINCONV Provider, MD [place] [address] [place] [address] Social History Tobacco Use Types Packs/Day Years Used Date Smoking Tobacco: Never Assessed Comments Unknown Sex and Gender Information Value Date Recorded Sex Assigned at Not on file Legal Sex Female 3:25 AM DIP GUIDER STOVES Gender Identity Female 09/05/2020 9:47 AM CDT Sexual Orientation Straight 09/05/2020 9: 47 AM CDT documented as of this encounter Plan of Treatment Not on file documented as of this encounter Procedures Procedure Name Priority Date/Time Associated Diagnosis Comments SCAN - PATHOLOGY 07/17/2015 12:0 0 AM CDT SCAN - LABS 07/17/2015 12:00 AM CDT documented in this encounter Results * SCAN - LABS (07/17/2015 12:00 AM CDT) Narrative 07/17/2015 12:00 AM CDT Ordered by an unspecified provider. us Historical Provider Final Res ult * SCAN - PATHOLOGY (07/17/2015 12:00 AM CDT) Narrative 07/17/2015 12:00 AM CDT Ordered by an unspecified provider. us Historical Provider MD Final Res ult documented in this encounter Visit Diagnoses Not on filedocumented in this encounter Additional Health Concerns Infection Onset Date Last Indicated Resolved Time COVID: Suspected 01/28/2021 01/28/2021 01/28/2021 5:41 PM DIP GUIDER STOVES COVID: Suspected 11/01/2023 11/01/2023 11/02/2023 3:05 AM CDT documented as of this encounter Care Teams Can Bander Operator Relationship Specialty Start Date End Date Monalisa John PA [address] [place], [place] [phone] PCP - General Internal Medicine 08/22/18 Elizabeth Alvarez NP [address] [place] [address] Nurse Practitioner Urology 05/04/22 documented as of this encounter
--- OUTSIDE RECORDS SUMMARY | 2024-10-07 20:21 | XMS_ITS ---
Author Organization [facility] [address] [facility] Address [address] [place] [address] Care Team Providers Care Financial Foundations Associate Name Role Phone Monalisa John Primary Care Provider [phone]- [phone] Elizabeth Alvarez NP Unavailable [phone] Home Infusion Status:Under Review (Active) Start date:09/18/2024 Enrollment date:09/18/2024 Related service episodes:Specialty Therapies (Active) Continued Care and Services Coordination
--- OUTSIDE RECORDS SUMMARY | 2024-10-07 20:21 | XMS_ITS | Encounter Summary ---
Author Organization [facility] Facility Care Team Providers Care Artisan Plasterer Name Role Phone Monalisa John Primary Care Provider [phone]- [phone] Elizabeth Alvarez NP Unavailable [phone] Encounter Details Date Type Department Care Team (Latest Contact Info) Description 07/16/2015 Orders Only [facility] CLINCONV Provider, MD [place] [address] [place] [address] Social History Tobacco Use Types Packs/Day Years Used Date Smoking Tobacco: Never Assessed Comments Unknown Sex and Gender Information Value Date Recorded Sex Assigned at Not on file Legal Sex Female 3:25 AM DATA MANAGEMENT ENGINEER Gender Identity Female 09/05/2020 9:47 AM CDT Sexual Orientation Straight 09/05/2020 9: 47 AM CDT documented as of this encounter Plan of Treatment Not on file documented as of this encounter Procedures Procedure Name Priority Date/Time Associated Diagnosis Comments PROCEDURE - RESULT 07/16/2015 12 :00 AM CDT documented in this encounter Results * PROCEDURE - RESULT (07/16/2015 12:00 AM CDT) Narrative 07/16/2015 12:00 AM CDT Ordered by an unspecified provider. us Historical Provider Final Res ult documented in this encounter Visit Diagnoses Not on filedocumented in this encounter Additional Health Concerns Infection Onset Date Last Indicated Resolved Time COVID: Suspected 01/28/2021 01/28/2021 01/28/2021 5:41 PM DATA MANAGEMENT ENGINEER COVID: Suspected 11/01/2023 11/01/2023 11/02/2023 3:05 AM CDT documented as of this encounter Care Teams Artisan Plasterer Relationship Specialty Start Date End Date Monalisa John PA [address] [place], [place] [phone] PCP - General Internal Medicine 08/22/18 Elizabeth Alvarez NP [address] [place], [place] [phone] Nurse Practitioner Urology 05/04/22 documented as of this encounter
--- OUTSIDE RECORDS SUMMARY | 2024-10-07 20:21 | XMS_ITS | Clinical Summary ---
Author Organization [facility] [place] [facility] Address [address] [place] [address] Care Team Providers Care Milk Pasteurizer Name Role Phone Monalisa John Primary Care Provider [phone] Elizabeth Alvarez NP Unavailable [phone] Allergies Active Allergy Reactions Criticality Noted Date [...] ONCE DAILY NEEDED FOR PALPITATIONS 30 tablet 07/17/20 23 Active triamcinolone (KENALOG) 0.1 % cream [...] 05/14/2023 Assessment & Plan (05/14/2023 8:37 PM MANUFACTURING SUPERVISOR 2ND SHIFT): The parotid gland has returned to normal [...] b.i.d. Assessment & Plan (05/14/2023 8:00 PM MANUFACTURING SUPERVISOR 2ND SHIFT): Patient's symptoms are responding to the antibiotic. [...] reassess Assessment & Plan (05/14/2023 7:38 PM MANUFACTURING SUPERVISOR 2ND SHIFT): Patient has noted swelling just in front [...] Reviewed options for assistance with cessation. Reviewed spinner box sequela associated with smoking. Pt declines assistance at this time but may contact the office at anytime for further help as they desire. Assessment & Plan (11/30/2022 8:34 PM CDT): Encouraged smoking cessation. Discussed 3 minutes. Reviewed options for assistance with cessation. Reviewed spinner box sequela associated with smoking. Pt declines assistance [...] provided Assessment & Plan (02/14/2022 7:09 PM MANUFACTURING SUPERVISOR 2ND SHIFT): Mammogram order provided Adrenal adenoma, left 02/13/2022 Assessment & Plan (02/13/2022 10:49 PM MANUFACTURING SUPERVISOR 2ND SHIFT): I do not know the size of [...] is to follow the recommendations from her physicist acoustics regarding her an autoimmune medications while on antibiotics. Pericardial effusion 11/05/2021 Assessment & Plan (11/23/2021 6:15 PM CDT): Continue per cardio Dr. De Leon Coronary artery disease of n ative artery of [place] heart with stable angina pectoris 11/05/2021 Assessment & Plan (01/08/2024 9:34 PM CDT): Patient is to continue with Dr. De Leon/cardiology Continue statin, aspirin and beta-sera Assessment & Plan (05/02/2022 10:51 PM MANUFACTURING SUPERVISOR 2ND SHIFT): Continue statin calcium channel sera She is on an AC Assessment & Plan (02/13/2022 10:49 PM MANUFACTURING SUPERVISOR 2ND SHIFT): Continue per Cardiology. Patient is on statinand [...] have UA micro/cx done this week at [facility]. Will f/u on results and discuss with [...] sodium. Assessment & Plan (05/04/2022 2:07 PM MANUFACTURING SUPERVISOR 2ND SHIFT): Patient presents with acute onset flank pain [...] We reviewed normal cta chest/upper abdomen from [place] from er visit. Leukocytosis 10/26/2021 Assessment & [...] 2022) Assessment & Plan (05/04/2022 1:48 PM MANUFACTURING SUPERVISOR 2ND SHIFT): History of DVT in the left upper extremity. Awaiting recommendations from Hematology appointment to determine status of anticoagulant use. Assessment & Plan (05/02/2022 10:50 PM MANUFACTURING SUPERVISOR 2ND SHIFT): Continue Xarelto. Awaiting appointment with Hematology to determine long-term plans of the need for an AC. Assessment & Plan (02/13/2022 10:48 PM MANUFACTURING SUPERVISOR 2ND SHIFT): Patient continues with the Xarelto. Had DVT [...] 09/23/2021 Assessment & Plan (02/03/2022 9:34 AM MANUFACTURING SUPERVISOR 2ND SHIFT): -stool studies as above. No evidence of [...] done. Assessment & Plan (05/02/2022 10:50 PM MANUFACTURING SUPERVISOR 2ND SHIFT): This is a significant, separately identifiable problem [...] (07/30/2021): Added automatically from request for surgery [id number] Assessment & Plan (05/02/2022 10:49 PM MANUFACTURING SUPERVISOR 2ND SHIFT): Status post surgery. Continue per Dr. Pitts. She continues to follow with him about every 6 months. Assessment & Plan (10/02/2021 2:12 PM CDT): - S/p OR on 09/29/21 for right neurogenic thoracic outlet decompression - Pain control: CEREAL MILLER until POD 2, received pre-op block. Add [...] 05/30/2021 Assessment & Plan (05/30/2021 12:00 PM MANUFACTURING SUPERVISOR 2ND SHIFT): Persistent pain after being tackled by a [...] 05/30/2021 Assessment & Plan (05/30/2021 12:01 PM MANUFACTURING SUPERVISOR 2ND SHIFT): Persistent pain after being tackled by a [...] 02/15/2021 Assessment & Plan (02/15/2021 6:07 PM MANUFACTURING SUPERVISOR 2ND SHIFT): See cough Cough 02/15/2021 Assessment & Plan [...] immediately. Assessment & Plan (02/15/2021 6:06 PM MANUFACTURING SUPERVISOR 2ND SHIFT): Patient to presume positive COVID until results are available and self isolate for 10 days from the onset of sxs. Check COVID test thru [facility] collection site in [employer]. If positive, complete quarantine and consider monoclonal [...] water often. If needed, use a hand university controller that contains at least 60% alcohol. Clean and disinfect frequently touched surfaces such as tables, doorknobs, countertops, etc daily. Avoid touching your eyes, nose, and mouth when possible. Other fatigue 12/12/2020 TIM (dyspnea on exertion) 12/12/2020 Palpitations 12/12/2020 Assessment & Plan (05/02/2022 10:48 PM MANUFACTURING SUPERVISOR 2ND SHIFT): Continue per Dr. De Leon. She just changed medications so awaiting results. Will continue monitor closely Assessment & Plan (03/18/2021 12:13 PM MANUFACTURING SUPERVISOR 2ND SHIFT): Continue per Cardiology and complete workup. Family [...] 06/05/2020 Assessment & Plan (03/18/2021 12:13 PM MANUFACTURING SUPERVISOR 2ND SHIFT): Continue oxybutynin Assessment & Plan (06/05/2020 12:03 [...] Overview (07/18/2020): Negative workup done 06/2020 with [facility] [place]. Plan repeat workup in [...] (03/28/2020): Added automatically from request for surgery [id number] Gastroesophageal reflux disease 01/15/2020 Assessment & Plan (06/18/2024 9:33 AM CDT): Doing well on daily omeprazole. Educated on importance of avoiding certain food triggers. Also recommended for her to eat smaller portions throughout the day especially when starting Wegovy. Assessment & Plan (02/03/2022 9:34 AM MANUFACTURING SUPERVISOR 2ND SHIFT): -EGD as above. No esophagitis noted. Gastritis+ [...] dose. Assessment & Plan (03/18/2021 12:12 PM MANUFACTURING SUPERVISOR 2ND SHIFT): Continue pantoprazole Assessment & Plan (12/14/2020 2:47 [...] Recommend short term Mobic. She states her physicist acoustics will only let her use Mobic 7.5mg [...] 12/28/2018 Assessment & Plan (03/18/2021 12:12 PM MANUFACTURING SUPERVISOR 2ND SHIFT): Pre-diabetes/hyperglycemia is a precursor to Dm. Stressed [...] 05/14/2023 Assessment & Plan (05/14/2023 7:38 PM MANUFACTURING SUPERVISOR 2ND SHIFT): Patient notes pain in both hands. Her physicist acoustics suggest seen in ortho hand for possible injections. Will make referral to Dr. Looney for further evaluation Facial swelling 05/14/2023 08/28/2023 Assessment & Plan (05/14/2023 8:37 PM MANUFACTURING SUPERVISOR 2ND SHIFT): The parotid gland has returned to normal [...] 24 Assessment & Plan (04/25/2023 11:41 AM MANUFACTURING SUPERVISOR 2ND SHIFT): Discussed the patient's BMI. The BMI is above average. BMI management plan is completed. BMI Follow-up includes: nutrition counseling, exercise counseling and education provided. Acute right-sided low back p ain without sciatica 03/19/2023 01/08/2024 Assessment & Plan (03/19/2023 9:20 PM MANUFACTURING SUPERVISOR 2ND SHIFT): Encouraged NSAIDS (if able to safely tolerate) or Tylenol. Topical preparations like Lidocaine patches, Biofreeze, ICYHOT etc as needed. Heat, stretching Avoid long periods of sitting/laying. Encouraged PT. Followup if has any problems controlling bowels or bladder or if sxs worsen. Neck pain 03/19/2023 01/08/2024 Assessment & Plan (03/19/2023 9:20 PM MANUFACTURING SUPERVISOR 2ND SHIFT): Encouraged NSAIDS (if able to safely tolerate) or Tylenol. Topical preparations like Lidocaine patches, Biofreeze, ICYHOT etc as needed. Heat, stretching Avoid long periods of sitting/laying. Encouraged PT. Followup if has any problems controlling bowels or bladder or if sxs worsen. Coronary artery disease invo lving [place] coronary artery of [place] heart without angina pectoris 12/03/2022 01/08/2024 Periorbital [...] 04/25/19 Assessment & Plan (04/25/2023 11:40 AM MANUFACTURING SUPERVISOR 2ND SHIFT): Discussed the patient's BMI. The BMI is above average. BMI management plan is completed. BMI Follow-up includes: nutrition counseling, exercise counseling and education provided. Assessment & Plan (03/19/2023 9:19 PM MANUFACTURING SUPERVISOR 2ND SHIFT): Discussed the patient's BMI. The BMI is [...] 35.00-39.99. Assessment & Plan (05/14/2023 8:39 PM MANUFACTURING SUPERVISOR 2ND SHIFT): Discussed the patient's BMI. The BMI is above average. BMI management plan is completed. BMI Follow-up includes: nutrition counseling, exercise counseling and education provided. Patient has an obesity-related condition (not limited to: hypertension, obstructive sleep apnea, osteoarthritis, hyperlipidemia, diabetes, etc.). Therefore, morbid obesity may be documented for patients with a BMI between 35.00-39.99. Assessment & Plan (05/14/2023 7:36 PM MANUFACTURING SUPERVISOR 2ND SHIFT): Discussed the patient's BMI. The BMI is above average. BMI management plan is completed. BMI Follow-up includes: nutrition counseling, exercise counseling and education provided. Patient has an obesity-related condition (not limited to: hypertension, obstructive sleep apnea, osteoarthritis, hyperlipidemia, diabetes, etc.). Therefore, morbid obesity may be documented for patients with a BMI between 35.00-39.99. Assessment & Plan (05/14/2023 8:00 PM MANUFACTURING SUPERVISOR 2ND SHIFT): Discussed the patient's BMI. The BMI is above average. BMI management plan is completed. BMI Follow-up includes: nutrition counseling, exercise counseling and education provided. Patient has an obesity-related condition (not limited to: hypertension, obstructive sleep apnea, osteoarthritis, hyperlipidemia, diabetes, etc.). Therefore, morbid obesity may be documented for patients with a BMI between 35.00-39.99. Assessment & Plan (03/19/2023 9:19 PM MANUFACTURING SUPERVISOR 2ND SHIFT): Discussed the patient's BMI. The BMI is [...] Reviewed options for assistance with cessation. Reviewed spinner box sequela associated with smoking. Pt declines assistance [...] 01/08/2024 Assessment & Plan (05/04/2022 1:51 PM MANUFACTURING SUPERVISOR 2ND SHIFT): Send urine for culture Right foot pain 02/14/2022 01/08/2024 Assessment & Plan (05/02/2022 10:54 PM MANUFACTURING SUPERVISOR 2ND SHIFT): This is a significant, separately identifiable problem that was evaluated and managed on the same day as the wellness exam Patient has had persistent pain. She would like another evaluation. Will make referral to Dr. Avalos. Encouraged her to bring her MRI disc with her for evaluation. Patient is in agreement with the plan Assessment & Plan (02/14/2022 7:09 PM MANUFACTURING SUPERVISOR 2ND SHIFT): Patient with persistent right foot pain. Recommend seen Podiatry for further evaluation Chronic pain of left knee 02/14/2022 Assessment & Plan (02/14/2022 7:10 PM MANUFACTURING SUPERVISOR 2ND SHIFT): Difficult to know if her knee is [...] loss Assessment & Plan (05/02/2022 10:51 PM MANUFACTURING SUPERVISOR 2ND SHIFT): Continue PPI Assessment & Plan (02/13/2022 11:04 PM MANUFACTURING SUPERVISOR 2ND SHIFT): PPI prn Obesity (BMI 30-39.9) 01/21/20222021 Assessment & Plan (01/21/2022 9:02 AM CDT): Obesity is unchanged. Discussed the patient's BMI. The BMI is above average. BMI management plan is completed. BMI Follow-up includes: nutrition counseling, exercise counseling and education provided. BMI 36.0-36.9,adult 01/21/2022 08/19/19 Assessment & Plan (05/03/2022 1:11 PM MANUFACTURING SUPERVISOR 2ND SHIFT): Discussed the patient's BMI. The BMI is above average. BMI management plan is completed. BMI Follow-up includes: nutrition counseling, exercise counseling and education provided. Assessment & Plan (05/02/2022 10:51 PM MANUFACTURING SUPERVISOR 2ND SHIFT): Discussed the patient's BMI. The BMI is above average. BMI management plan is completed. BMI Follow-up includes: nutrition counseling, exercise counseling and education provided. Assessment & Plan (02/14/2022 7:08 PM MANUFACTURING SUPERVISOR 2ND SHIFT): Discussed the patient's BMI. The BMI is [...] 08/18/2022 Assessment & Plan (05/04/2022 1:50 PM MANUFACTURING SUPERVISOR 2ND SHIFT): Discussed the patient's BMI. The BMI is above average. BMI management plan is completed. BMI Follow-up includes: nutrition counseling, exercise counseling and education provided. Patient has an obesity-related condition (not limited to: hypertension, obstructive sleep apnea, osteoarthritis, hyperlipidemia, diabetes, etc.). Therefore, morbid obesity may be documented for patients with a BMI between 35.00-39.99. Assessment & Plan (05/02/2022 10:51 PM MANUFACTURING SUPERVISOR 2ND SHIFT): Discussed the patient's BMI. The BMI is above average. BMI management plan is completed. BMI Follow-up includes: nutrition counseling, exercise counseling and education provided. Patient has an obesity-related condition (not limited to: hypertension, obstructive sleep apnea, osteoarthritis, hyperlipidemia, diabetes, etc.). Therefore, morbid obesity may be documented for patients with a BMI between 35.00-39.99. Assessment & Plan (02/14/2022 7:08 PM MANUFACTURING SUPERVISOR 2ND SHIFT): Discussed the patient's BMI. The BMI is above average. BMI management plan is completed. BMI Follow-up includes: nutrition counseling, exercise counseling and education provided. Patient has an obesity-related condition (not limited to: hypertension, obstructive sleep apnea, osteoarthritis, hyperlipidemia, diabetes, etc.). Therefore, morbid obesity may be documented for patients with a BMI between 35.00-39.99. Assessment & Plan (02/13/2022 10:49 PM MANUFACTURING SUPERVISOR 2ND SHIFT): Discussed the patient's BMI. The BMI is [...] provided. Assessment & Plan (05/14/2023 8:33 PM MANUFACTURING SUPERVISOR 2ND SHIFT): Discussed the patient's BMI. The BMI is above average. BMI management plan is completed. BMI Follow-up includes: nutrition counseling, exercise counseling and education provided. Patient has an obesity-related condition (not limited to: hypertension, obstructive sleep apnea, osteoarthritis, hyperlipidemia, diabetes, etc.). Therefore, morbid obesity may be documented for patients with a BMI between 35.00-39.99. Assessment & Plan (05/14/2023 7:37 PM MANUFACTURING SUPERVISOR 2ND SHIFT): Discussed the patient's BMI. The BMI is [...] 05/05/20212021 Assessment & Plan (05/05/2021 3:21 PM MANUFACTURING SUPERVISOR 2ND SHIFT): Obesity is unchanged. Discussed the patient's BMI. The BMI is above average. BMI management plan is completed. BMI Follow-up includes: nutrition counseling, exercise counseling and education provided. Abnormal stress test 02/03/2021 Abnormal EKG 12/12/2020 03/05/2021 Assessment & Plan [...] 024 Assessment & Plan (05/02/2022 10:47 PM MANUFACTURING SUPERVISOR 2ND SHIFT): Encouraged healthy lifestyle, good nutrition and exercise. Encouraged Calcium and Vitamin D and weight bearing exercise for bone health. Reviewed immunizations Reviewed age appropirate screenings. Assessment & Plan (03/18/2021 12:12 PM MANUFACTURING SUPERVISOR 2ND SHIFT): Encouraged healthy lifestyle, good nutrition and exercise. [...] 10/13/2019 Assessment & Plan (04/08/2019 5:55 PM MANUFACTURING SUPERVISOR 2ND SHIFT): Left foot/ankle/achilles pain. Appt set with Dr. [...] she is to follow up with her physicist acoustics to determine proper use of her biologic since she will be on antibiotics. She states she will contact them but usually she has to hold it through the course of the antibiotic. Assessment & Plan (05/04/2022 1:47 PM MANUFACTURING SUPERVISOR 2ND SHIFT): Continue per Rheumatology. Patient just started Enbrel Assessment & Plan (05/02/2022 10:47 PM MANUFACTURING SUPERVISOR 2ND SHIFT): Continue per [facility] Assessment & Plan (02/13/2022 10:47 PM MANUFACTURING SUPERVISOR 2ND SHIFT): Continue per Rheumatology Assessment & Plan (03/18/2021 12:11 PM MANUFACTURING SUPERVISOR 2ND SHIFT): Continue per Rheumatology. Assessment & Plan (01/15/2020 [...] provided. Assessment & Plan (04/05/2019 10:30 AM MANUFACTURING SUPERVISOR 2ND SHIFT): Obesity is unchanged. Discussed the patient's BMI. [...] provided. Assessment & Plan (04/05/2019 10:30 AM MANUFACTURING SUPERVISOR 2ND SHIFT): Obesity is unchanged. Discussed the patient's BMI. [...] prn Wear hard soled shoe for support. Encounters Date Type Department Care Team Description 09/27/2024 Home Infusion [facility] Home Infusion Therapy [address] [place] [address] Kassidy Ashby 09/06/2024 Results Follow-Up [facility] Allergy and Immunology [address] [facility] [address] [place] [address] Yannick Rincon MD Strep pneumoniae antibody serotypes, BLOOD MISC TO [facility] 08/30/2024 5:20 PM CDT - 08/30/2024 11:59 PM CDT Hospital Encounter [address] [address] Hypogammaglobulinemia; Recurrent sinus infections Discharge Disposition: Discharge to home or self care 08/30/2024 9:00 AM CDT Lab [facility] Medical Group Outpatient Lab at [address] [address] 07/31/2024 9:00 AM CDT Clinical Support [facility] Family Medicine [address] [place] [address] Immunocompromised (Primary Dx); Other forms of systemic lupus erythematosus, unspecified organ involvement status (HCC); Need for vaccination for pneumococcus 07/26/2024 Results Follow-Up [facility] Allergy and Immunology [address] [facility] [address] [place] [address] Yannick Rincon MD IgE, IgA, IgM, Additional followed-up results: 4 07/20/2024 9:50 AM CDT Lab [facility] Infectious Diseases [address] [facility] [address] [place] [address] 07/20/2024 9:25 AM CDT - 07/20/2024 11:59 PM CDT Hospital Encounter [facility] [id number] [place] [address] Hypogammaglobulinemia; Recurrent sinus infections Discharge Disposition: Discharge to home or self care 07/20/2024 8:30 AM CDT Office Visit [facility] Allergy and Immunology [address] [place] [address] [address] [place] [address] Yannick Rincon MD Hypogammaglobulinemia (Primary Dx); Recurrent sinus infections from Last 3 Months Immunizations Immunization Administration Dates Next Due Influenza, Unspecified 03/21/2023(Deferr ed: Patient Refused),03/21/2023(Deferred: Patient Refused),03/21/2023(Deferred: Patient Refused),04/21/2022(Deferred: Patient Refused),12/21/2021(Deferred: Patient Refused),04/21/2021(Deferred: Patient Refused),01/15/2020(Deferred: Patient Refused),12/19/2018(Deferred: Patient Refused) Pneumococcal Conjugate Pcv20 07/31/2024 Surgical History Surgery Date Site/Laterality Comments ULNAR NERVE REPAIR 03/21/2013 - 03/20/2014 Left CYST REMOVAL 03/21/2013 - 03/20/2014 Left wrist ESSURE TUBAL LIGATION ABLATION 01/17/2015 uterine HAND SURGERY 03/21/2013 - 03/20/2014 Left CYST REMOVAL TONSILECTOMY, ADENOIDECTOMY, BILATERAL MYRINGOTOMY AND TUBES 03/21/2004 - 03/20/2005 ANTERIOR FIXATION AND POSTERIOR MICRODISCECTOMY CERVICAL SPINE 04/15/2020 FLUORO GUIDED INJECTION SHOULDER RIGHT 12/14/2016 Right HYSTERECTOMY 03/21/2015 - 03/20/2016 CHOLECYSTECTOMY 03/21/2008 - 03/20/2009 lap power NASAL SEPTUM SURGERY 03/21/2018 - 03/20/2019 COLONOSCOPY 03/21/2008 - 03/20/2009 [facility] UPPER GASTROINTESTINAL ENDOSCOPY 03/21/2008 - 03/20/2009 [facility] COLONOSCOPY 09/10/2021 CARDIAC CATHETERIZATION 01/19/2021 - 02/17/2021 mild non obstructive CAD; no intervention VAGINAL DELIVERY x 2 w/ epidural PECTORALIS MAJOR REPAIR 09/18/2021 - 10/18/2021 Thorac Outlet Syndrome, pectaralis minor muscle, removed band, scalene muscle removed, top Right rib removed, NECK SURGERY Medical History Medical History Date Comments Fibromyalgia Gastric reflux Poor circulation Systemic lupus (HCC) Arthritis Neuropathy right arm Raynaud's disease PONV (postoperative nausea and vomiting) DOS Scopalamine Patch & IV antemetics have been beneficial in the past Nerve damage Allergic rhinitis GERD (gastroesophageal reflux disease) Irritable bowel syndrome Obesity Hyperlipidemia Motion sickness Immunosuppression due to drug therapy Humira, Plaquenil Tobacco abuse Stress fracture of foot 01/2022 Right fo ot Colon polyp Autoimmune disease 2016 Asthma Bleeding disorder Chest pain Coronary artery disease Deep vein thrombosis (HCC) Kidney infection Rheumatoid arthritis (HCC) Family History Medical History Relation Name Comments Diabetes Father Dad Hypertension Father Dad Heart disease Maternal Grandfather Robles Heart disease Maternal Grandmother Jose Davidmarnie Tuberculosis Maternal Grandmother Jose Davidmarnie Cancer Mother Mom cervical Hyperlipidemia Mother Mom Cancer Paternal Grandfather Robles Breast cancer Paternal Grandmother Frankmarnie Cancer Paternal Grandmother Frankmarnie Asthma Son Yoel gilbert Son Yoel Anesthesia problems Neg Hx Heart attack Neg Hx Stroke Neg Hx Relation Name Status Comments Father Dad Alive Maternal Grandfather Robles Maternal Grandmother Jose Davidmarnie Mother Mom Alive Paternal Grandfather Robles Paternal Grandmother Frankey Son Yoel Alive Social History Tobacco Use Types Packs/Day Years [...] on file Legal Sex Female 3:25 AM MANUFACTURING SUPERVISOR 2ND SHIFT Gender Identity Female 09/05/2020 9:47 AM CDT Sexual Orientation Straight 09/05/2020 9: 47 AM CDT Occupation Industry Job Start Date Job End Date Disabled Not on file Not on file Not on file Obstetrics History Para Term AB IAB SAB Ectopic Multiple Livin g Live Births 2 2 2 Date Outcome GA Total Labor Labor/2nd/3rd Weight Sex Type Anes PTL Nandini A1 A5 Name Clin Term Term Last Filed Vital Signs Vital Sign Reading [...] 07/20/2024 8:33 AM CDT Plan of Treatment Health Maintenance Due Date Last Done Comments Hepatitis C Screening 1981 DTaP/Tdap/Td Vaccine (1 - Tdap) 1992 Varicella Vaccines (1 of 2 - 13+ 2-dose series) 1994 Hepatitis B Screening 12/19/1999 Zoster Vaccine (1 of 2) 2000 Influenza Vaccine (#1) 2024 Depression Screening 12/25/2024 12/26/2023, 11/01/2023, 08/23/2023, Additional history exists Regular Well Visit/Exam 18-64 12/25/2024 12/26/2023, 04/26/2022, 02/25/2021, Additional history exists Breast Cancer Screening-Mammogram 02/05/2025 02/06/2024, 02/03/2023, 02/01/2022 Colon Cancer Screening-Colonoscopy 01/22/2028 01/21/2023, 09/10/2021 Pneumococcal vaccine <65 Completed 07/31/2024 HPV Vaccines Aged Out No longer eligi ble based on patient's age to complete this topic Medical Devices Implanted Type Area Ruling Machine Set Up Operator Device Identifier Shelf Expiration Date Model / Serial / Lot [employer] Photofix Bovine 6x8 Pericardium Pfp 6x8 - S/ - [id number] Implanted:Qty: 1 on 09/29/2021 by Bradley Pitts MD at [facility] Graft Right: Chest [employer] [id number] 06/14/2023 PFP 6X8 / / / [id number] [employer] 700-025 I Factor Allograft Putty Syringe Graft 2.5cc Bone - [id number] Implanted:Qty: 1 on 04/15/2020 by Jong Chavez MD at [facility] N/A: Spine Cervical [employer] 700-025 / / Depuy Spine [id number] 8mm 4d Large Cage Spinal Eit Sterile Latex Free Cervical - [id number] - [id number] Implanted:Qty: 1 on 04/15/2020 by Jong Chavez MD at [facility] N/A: Spine Cervical Depuy Synthes Spine [id number] / [id number] / [id number] [employer] [id number] Maxan 4mm 14mm Variable Angle Self Drill Spine Screw Bone - [id number] Implanted:Qty: 1 on 04/15/2020 by Jong Chavez MD at [facility] N/A: Spine Cervical [employer] [id number] / / [employer] [id number] Maxan 9mm Cervical Spine Plate Bone - [id number] Implanted:Qty: 1 on 04/15/2020 by Jong Chavez MD at [facility] N/A: Spine [employer] [id number] / / [employer] [id number] Maxan 4.5mm 14mm Variable Angle Spine Screw Bone - [id number] Implanted:Qty: 3 on 04/15/2020 by Jong Chavez MD at [facility] N/A: Spine [employer]ervical [employer] [id number] / / Procedures Procedure Name Priority Date/Time Associated Diagnosis Comments BLOOD MISC TO WINDBER Routine 08/30/2024 5: 41 PM CDT STREP PNEUMONIAE ANTIBODY SEROTYPES Routine 08/30/2024 12:00 PM CDT Hypogammaglobulin emia Recurrent sinus infections BLOOD MISC TO WINDBER Routine 07/20/2024 9: 25 AM CDT IMMUNOGLOBULIN [...] Read Routine (OP Routine) 02/06/2024 8:59 AM MANUFACTURING SUPERVISOR 2ND SHIFT Breast cancer screening by mammogram COLONOSCOPY 01/21/2023 9:50 AM CDT from Last 3 Months or Most Recently Relevant to Health Maintenance Results * BLOOD MISC TO WINDBER (08/30/2024 5:41 PM CDT) Test name, chem [facility] [place] [facility] Misc See Footnote EVERARDO DOUGLASS Comment: Test Result Flag Unit RefValue Tetanus Toxoid IgG Ab, S Tetanus IgG Ab Positive REFERENCE VALUE Vaccinated: Positive (>= 0.01 IU/mL) Unvaccinated: Negative (< 0.01 IU/mL) Tetanus IgG Value 1.04 IU/mL ADDITIONAL INFORMATION This test was developed and its performance characteristics determined by [facility] in a manner consistent with CLIA requirements. This test has not been cleared or approved by the U.S. Food and Drug Administration. Test Performed by: [facility] - [address] [address] [employer]ocational Technical Education Director: Zonia Do Ph.D.; CLIA# [id number] Blood 08/30/2024 5:41 PM CDT 08/31/2024 2:31 PM CDT Narrative [facility] - 09/04/2024 1:37 PM CDT TETANUS AB IGG us Yannick Rincon MD LAB BLOOD [place] [id number] [address] Department [place] [address] [facility] * Strep pneumoniae antibody serotypes (08/30/2024 12:00 PM CDT) S. pneumo Type 1 (1) 0.7 >=1.0 mcg/mL [facility] S. pneumo Type 2 (2) [...] developed and its performance characteristics determined by [facility] in a manner consistent with CLIA requirements. This test has not been cleared or approved by the U.S. Food and Drug Administration. Test Performed by: [facility] - [address] [address] [employer]ocational Technical Education Director: Zonia Do Ph.D.; CLIA# [id number] Blood 08/30/2024 12:0 0 PM CDT 08/30/2024 5:42 PM CDT Yannick Rincon MD LAB BLOOD ORDERABLES Fi nal Result [place] [address] [address] Department [place] [address] [facility] * BLOOD MISC TO WINDBER (07/20/2024 9:25 AM CDT) Test name, chem [facility] [place] [facility] Misc See Footnote EVERARDO DOUGLASS Comment: Test Result Flag Unit RefValue Tetanus Toxoid IgG Ab, S Tetanus IgG Ab Positive REFERENCE VALUE Vaccinated: Positive (>= 0.01 IU/mL) Unvaccinated: Negative (< 0.01 IU/mL) Tetanus IgG Value 1.31 IU/mL ADDITIONAL INFORMATION This test was developed and its performance characteristics determined by [facility] in a manner consistent with CLIA requirements. This test has not been cleared or approved by the U.S. Food and Drug Administration. Test Performed by: [facility] - [facility] [address] [place] [address] [employer]ocational Technical Education Director: Zonia Do Ph.D.; CLIA# [id number] Blood 07/20/2024 9:25 AM CDT 07/23/2024 8:59 AM CDT Narrative [facility] - 07/25/2024 12:12 PM CDT TETANUS AB IgG Yannick Rincon MD LAB BLOOD ORDERABLES Fi nal Result Performing Organization Address [facility] Co de Phone Number [place]ARD[facility] [address] [address] [facility] [place] [address] [facility] * (ABNORMAL) Immunoglobulin IgG subclasses (07/20/2024 9:25 AM CDT) IgG 523(L) 767 - 1590 mg/dL [facility] IgG, fraction 1 255(L) 341 - 894 mg/dL [facility] IgG, fraction 2 228 171 - 632 mg/dL [facility] IgG, fraction 3 50.3 18.4 - 106.0 mg/dL [facility] IgG, fraction 4 8.8 2.4 - 121.0 mg/dL [facility] Comment: Test Performed by: [facility] [address] [place] [address] Vocational Technical Education Director: Zonia Do Ph.D.; CLIA# [id number] Blood 07/20/2024 9:25 AM CDT 07/20/2024 8:54 PM CDT Yannick Rincon MD LAB BLOOD ORDERABLES Fi nal Result Performing Organization Address [facility] Co de Phone Number EVERARDO [address] [address] Department [facility] [place] [address] [facility] * (ABNORMAL) Immune competence (07/20/2024 9:25 AM CDT) CD3 pct 78 60 - 88 % Comment:Testing performed by : [facility], [address] [place] [address] CD3 Absolute 1,752 661 - 1,963 cells/mcL CERNER Comment:Testing performed by : [facility], [address] [place]., [address] CD4 pct 56 31 - 64 % [facility] CH Comment:Testing performed by : [facility], [address] [facility], [address] CD4 Absolute 1,220 365 - 1,294 cells/mcL [facility] CH Comment:Testing performed by : [facility], [address] [facility], [address] CD8 pct 22 12 - 40 % [facility] CH Comment:Testing performed by : [facility], [address] [facility], [address] CD8 Absolute 486 187 - 781 cells/mcL [facility] CH Comment:Testing performed by : [facility], [address] [facility], [address] CD19 pct 18 6 - 25 % [facility] CH Comment:Testing performed by : [facility], [address] [facility], [address] CD19 Absolute 415 86 - 488 cells/mcL [facility] CH Comment:Testing performed by : [facility], [address] [facility], [address] [id number] pct 3(L) 5 - 25 % [facility] CH Comment:Testing performed by : [facility], [address] [facility], [address] [id number] Absolute 71(L) 76 - 467 cells/mcL [facility] Comment:Testing performed by : [facility], [address] [facility], [address] CD4/CD8 ratio 2.5 [facility] CH Comment:Testing performed by : [facility], [address] [facility], [address] Blood 07/20/2024 9:25 AM CDT 07/23/2024 10:25 AM CDT us Yannick Rincon MD LAB BLOOD ORDERABLES Fi nal Result [facility] [address] [address] Department of [facility] [place] [address] * Strep pneumoniae antibody serotypes (07/20/2024 9:25 AM CDT) [facility] S. pneumo Type 1 (1) 0.8 >=1.0 mcg/mL [facility] S. pneumo Type 2 (2) [...] developed and its performance characteristics determined by [facility] in a manner consistent with CLIA requirements. This test has not been cleared or approved by the U.S. Food and Drug Administration. Test Performed by: [facility] - [address] [address] [employer]ocational Technical Education Director: Zonia Do Ph.D.; CLIA# [id number] Blood 07/20/2024 9:25 AM CDT 07/20/2024 8:54 PM CDT Yannick Rincon MD LAB BLOOD ORDERABLES Fi nal Result [place] [address] [address] Department of [facility] [place] [address] [facility] * IgE (07/20/2024 9:25 AM CDT) IgE 8 <=100 IUnits/mL Comment:Testing performed by : [facility], [address] [facility], [place]., [address] Blood 07/20/2024 9:25 AM CDT 07/21/2024 9:39 AM CDT Yannick Rincon MD LAB BLOOD ORDERABLES Fi nal Result Performing Organization Address City/[facility] Co de Phone Number EVERARDO [address] [address] Department of [facility] [place] [address] * IgA (07/20/2024 9:25 AM CDT) Immunoglobulin A 126 70 - 400 mg/dL Blood 07/20/2024 9:25 AM CDT 07/20/2024 8:54 PM CDT Yannick Rincon MD LAB BLOOD ORDERABLES Fi nal Result Performing Organization Address City/[facility] Co de Phone Number EVERARDO [address] [address] Garcia Department of [facility] [place] [address] * IgM (07/20/2024 9:25 AM CDT) Immunoglobulin M 148 40 - 150 mg/dL Blood 07/20/2024 9:25 AM CDT 07/20/2024 8:54 PM CDT Yannick Rincon MD LAB BLOOD ORDERABLES Fi nal Result Performing Organization Address City/[facility]/ZIP Co de Phone Number [facility] [address] [address] Garcia Department [place] [address] * Screening Mammogram Bilateral W Jordan (02/06/2024 8:59 AM MANUFACTURING SUPERVISOR 2ND SHIFT) Anatomical Region Laterality Modality Breast Bilateral Mammography Impressions 02/06/2024 10:03 AM MANUFACTURING SUPERVISOR 2ND SHIFT BI-RADS ATLAS category (overall): 1 - Negative There is no mammographic evidence of malignancy. A 1 year screening mammogram is recommended. The patient has been or will be contacted. We recommend annual screening mammography for women at average risk of breast cancer beginning at age 40, based on guidelines of the [employer] (ACR Practice Parameter for the Performance of Screening and Diagnostic Mammography) and [employer]. For women with and elevated risk of breast cancer, please refer to the ACR Practice Parameter for specific screening recommendations. The patient will be entered into a reminder system with a target due date of 1 year for her next screening exam. Narrative 02/06/2024 10:03 AM MANUFACTURING SUPERVISOR 2ND SHIFT Screening Mammogram Bilateral W Jordan: 02/06/24 The [...] breast. There has been no suspicious change. Monalisa GAUTHIER IMG MAMMO PROCEDURES Final Result * COLONOSCOPY (01/21/2023 9:50 AM CDT) Anatomical Region Laterality Modality Other Narrative Procedure Note Derrek Mcgill MD - 01/21/2023 9:50 AM CDT [facility] Patient Name: Kelsie Vaughn Procedure Date: 01/21/2023 9:50 AM Date of : 1980 Admit Type: Outpatient Age: 42 Gender: Female Attending MD: Derrek Mcgill M.D. Room: [facility] ENDOSCOPY ROOM 06 Note Status: Finalized [...] On: 01/21/2023 9:50 AM Recognized by the [employer] for promoting quality in endoscopy Derrek Mcgill MD ENDOSCOPY PROCEDURES Final Resul t from Last 3 Months or Most Recently Relevant to Health Maintenance Insurance [place] [address] [place] [address] Advance Directives For more information, please contact: [phone] * Full Code (Latest Code Status on File) Date Activated Date Inactivated Comments 09/29/2021 5:49 PM 10/03/2021 1:26 AM Care Teams Milk Pasteurizer Relationship Specialty Start Date End Date Monalisa John PA [address] [place] [address] PCP - General Internal Medicine 08/22/18 Elizabeth Alvarez NP [address] [place] [address] Nurse Practitioner Urology 05/04/22
--- OUTSIDE RECORDS SUMMARY | 2024-10-07 20:21 | XMS_ITS | Data Portability ---
Author Organization [facility] BLOOD Address [address] [place] [address] Care Team Providers Care [employer] Co[employer] Supervisor Name Role Phone ANITA GRAHAM Primary Care Provider Assessment Encounter Date Assessment Date Assessment LastModified by Organization Details LastModified Time 04/17/2024 04/17/2024 Labs: 01/04/2024: Total cholesterol 196, TG 103, HDL 44, LDL 133, HGB A1c 5.5, sodium 141, potassium 4.6, chloride 105, CO2 20 5, BUN 9, creatinine 0.82, AST 13, ALT 11, HGB 13.6, WBC 7.6, platelet 220 Cardiac diagnostics: Echocardiogram, 01/12/2021 with preserved biventricular systolic function, no pulmonary hypertension, no advanced valvular disease. Holter monitor, 12/12/2020: Sinus rhythm with average heart rate 82 beats per minute, no clinically significant arrhythmias, symptom triggered events correlated with sinus rhythm to sinus tachycardia Pharmacologic stress test, 02/02/2021: Moderate size partially reversible anterolateral and apical perfusion defect. Cardiac catheterization, 02/18/2021, mild nonobstructive Coronary Artery Disease in the LAD and diagonal distribution Echocardiogram September 2021, [facility] in the setting of COVID-19: Preserved biventricular systolic function, LVEF 60-65%, thickened pericardium with small pericardial effusion 48 hour Holter monitor, 03/08/2022: Sinus rhythm throughout the study duration with 4% spent in bradycardia, no PVCs noted, Pac burden less than 1% [email or web address] Not available 04/17/2024 13:01:30 Plan of Treatment Reminders Order Date Submit Date Provider Last Modified By Organization Details Last Modified Time Details Appointments ANY 15 2024 09:15A Chino De Leon MD Not available Not available Not available Lab lipid panel, serum 2024 025 [facility], 2022 Jesi [address], [address], [place], [address], 10/03/2024 03:05:19 CMP, serum or plasma 2024 025 [facility], 2022 Jesi [address], [address], [place], [address], 10/03/2024 03:05:19 HbA1c (hemoglob in A1c), blood 2024 025 [facility], 2022 Jesi Morton, [address], [place], [address], 10/03/2024 03:05:19 lipid panel, serum 2024 025 [facility], 2022 Jesi Morton, [address], [place], [address], 06/20/2024 03:37:39 CMP, serum or plasma 2024 025 [facility], 2022 Jesi Morton, [address], [place], [address], 06/20/2024 03:37:40 HbA1c (hemoglob in A1c), blood 2024 025 [facility], 2022 Jesi [address], [address], [place], [address], 06/20/2024 03:37:41 Referral None recorded. Procedures None recorded. Surgeries None recorded. Imaging electroca rdiogram 2024 025 [email or web address] In-Office Order, Internal Use Only DO Not Attach Compendium DO Not Attach Compendium, Do Not Delete/merge, [id number] 04/17/2024 10:52:40 Medication Orders Wegovy 0.25 mg/0.5 mL subcutane ous pen injector 2024 025 [facility] [address] [place], [address], 06/29/2024 10:37:14 Repatha SureClick 140 mg/mL subcutane ous pen injector 2024 025 [facility] [address] [place], [address], 04/17/2024 10:52:50 aspirin 81 mg tablet,de layed release 2024 025 [facility] [address] [place], [address], 04/17/2024 10:54:01 Patient TargetsNo targets recorded. Patient Instructions Encounter Date Encounter Id Patient Instructions Last Modified By Organization Details Last Modified Time 04/17/2024 [id number] Quitting Tobacco : Care Instructions [email or web address] Not available 04/17/2024 10:52:40 A healthy lifestyle: care instructions [email or web address] Not available 04/17/2024 13:01:17 06/29/2024 [id number] A healthy lifestyle: care instructions [email or web address] Not available 06/29/2024 10:36:59 Quitting Tobacco : Care Instructions [email or web address] Not available 06/29/2024 10:36:59 Reason for Referral None Reported. Results Created Date Observation Date Name Description Value Unit Range Abnormal Flag Note LastModifiedBy Organization Detail LastModifiedTime 05/05/1905/06/2024 C react casimiro prote in [Mass /volu me] in Serum or Plasm a C-reactive protein 1 mg/L low: 0mg/Lh igh: 10mg/L C-[place] ctive Prote in 1 0 - 10 mg/L [facility] ACCOU NT BILL Not Available Not Available 06/28/2024 14:39:48 05/05/1905/06/2024 C react casimiro prote in [Mass /volu me] in Serum or Plasm a Unknown Analyte Perfor med at: 01 - [facility] [address] [id number] [facility] or: Martín batres PhD, Not Available Not Available 14:39:48 05/05/19 25 05/06/2024 Eryth rocyt e sedim entat ion rate [[place]] in Red Blood Cells by Danyelle carrillo erythrocyte sedimentatio n rate westergren 2 text: 0 - 32 mm/HR Eryth rocyt e Sedim entat ion Rate Weste rgren 2 0 - 32 mm/hr [facility] ACCOU NT BILL Not Available Not Available 06/28/2024 14:39:48 05/05/19 25 05/06/2024 Eryth rocyt e sedim entat ion rate [[place]] in Red Blood Cells by Danyelle carrillo Unknown Analyte Perfor med at: 01 - [facility] [place] [id number] [facility] or: Martín batres PhD, Not Available Not Available 14:39:48 05/05/19 25 05/06/2024 CBC W Auto Diffe renti al panel - Blood WBC 8.5 text: 3.4 - 10.8 x10e3/ uL WBC 8.5 3.4 - 10.8 x10E3 /uL [facility] ACCOU NT BILL Not Available Not Available 06/28/2024 14:39:47 05/05/19 25 05/06/2024 CBC W Auto Diffe renti al panel - Blood RBC 4.32 text: 3.77 - 5.28 x10e6/ uL RBC 4.32 3.77 - 5.28 x10E6 /uL [facility] ACCOU NT BILL Not Available Not Available 06/28/2024 14:39:47 05/05/19 25 05/06/2024 CBC W Auto Diffe renti al panel - Blood hemoglobin 13.4 g/dL low: 11.1g/ dLhigh : 15.9g/ dL Hemog lobin 13.4 11.1 - 15.9 g/dL [facility] ACCOU NT BILL Not Available Not Available 06/28/2024 14:39:47 05/05/19 25 05/06/2024 CBC W Auto Diffe renti al panel - Blood hematocrit 40.4 % low: 34%hig h: 46.6% Hemat ocrit 40.4 34.0 - 46.6 % [facility] ACCOU NT BILL Not Available Not Available 06/28/2024 14:39:47 05/05/19 25 05/06/2024 CBC W Auto Diffe renti al panel - Blood MCV 94 fL low: 79fLhi gh: 97fL MCV 94 79 - 97 fL [facility] ACCOU NT BILL Not Available Not Available 06/28/2024 14:39:47 05/05/19 25 05/06/2024 CBC W Auto Diffe renti al panel - Blood MCH 31 pg low: 26.6pg high: 33pg MCH 31.0 26.6 - 33.0 pg [facility] ACCOU NT BILL Not Available Not Available 06/28/2024 14:39:47 05/05/19 25 05/06/2024 CBC W Auto Diffe renti al panel - Blood MCHC 33.2 g/dL low: 31.5g/ dLhigh : 35.7g/ dL MCHC 33.2 31.5 - 35.7 g/dL [facility] ACCOU NT BILL Not Available Not Available 06/28/2024 14:39:47 05/05/19 25 05/06/2024 CBC W Auto Diffe renti al panel - Blood RDW 12.4 % low: 11.7%h igh: 15.4% RDW 12.4 11.7 - 15.4 % [facility] ACCOU NT BILL Not Available Not Available 06/28/2024 14:39:47 05/05/19 25 05/06/2024 CBC W Auto Diffe renti al panel - Blood platelet count 233 text: 150 - 450 x10e3/ uL Plate let Count 233 150 - 450 x10E3 /uL [facility] ACCOU NT BILL Not Available Not Available 06/28/2024 14:39:47 05/05/19 25 05/06/2024 CBC W Auto Diffe renti al panel - Blood granulocytes % 65 % text: not estab. Granu locyt es % 65 Not Estab . % [facility] ACCOU NT BILL Not Available Not Available 06/28/2024 14:39:47 05/05/19 25 05/06/2024 CBC W Auto Diffe renti al panel - Blood lymphocytes % 27 % text: not estab. Lymph ocyte s % 27 Not Estab . % [facility] ACCOU NT BILL Not Available Not Available 06/28/2024 14:39:47 05/05/19 25 05/06/2024 CBC W Auto Diffe renti al panel - Blood monocytes % 5 % text: not estab. Monoc ytes % 5 Not Estab . % [facility] ACCOU NT BILL Not Available Not Available 06/28/2024 14:39:47 05/05/19 25 05/06/2024 CBC W Auto Diffe renti al panel - Blood eosinophils % 2 % text: not estab. Eosin ophil s % 2 Not Estab . % [facility] ACCOU NT BILL Not Available Not Available 06/28/2024 14:39:47 05/05/19 25 05/06/2024 CBC W Auto Diffe renti al panel - Blood basophils % 1 % text: not estab. Basop hils % 1 Not Estab . % [facility] ACCOU NT BILL Not Available Not Available 06/28/2024 14:39:47 05/05/19 25 05/06/2024 CBC W Auto Diffe renti al panel - Blood granulocytes absolute 5.6 text: 1.4 - 7.0 x10e3/ uL Granu locyt es Absol tonto [place] 5.6 1.4 - 7.0 x10E3 /uL [facility] ACCOU NT BILL Not Available Not Available 06/28/2024 14:39:47 05/05/19 25 05/06/2024 CBC W Auto Diffe renti al panel - Blood lymphocytes absolute 2.3 text: 0.7 - 3.1 x10e3/ uL Lymph ocyte s Absol tonto [place] 2.3 0.7 - 3.1 x10E3 /uL [facility] ACCOU NT BILL Not Available Not Available 06/28/2024 14:39:47 05/05/19 25 05/06/2024 CBC W Auto Diffe renti al panel - Blood monocytes absolute 0.4 text: 0.1 - 0.9 x10e3/ uL Monoc ytes Absol tonto apache 0.4 0.1 - 0.9 x10E3 /uL [facility] ACCOU NT BILL Not Available Not Available 06/28/2024 14:39:47 05/05/19 25 05/06/2024 CBC W Auto Diffe renti al panel - Blood eosinophils absolute 0.1 text: 0.0 - 0.4 x10e3/ uL Eosin ophil s Absol tonto [place] 0.1 0.0 - 0.4 x10E3 /uL [facility] ACCOU NT BILL Not Available Not Available 06/28/2024 14:39:47 05/05/19 25 05/06/2024 CBC W Auto Diffe renti al panel - Blood basophils absolute 0.1 text: 0.0 - 0.2 x10e3/ uL Basop hils Absol tonto [place] 0.1 0.0 - 0.2 x10E3 /uL [facility] ACCOU NT BILL Not Available Not Available 06/28/2024 14:39:47 05/05/19 25 05/06/2024 CBC W Auto Diffe renti al panel - Blood immature granulocytes 0 % text: not estab. Immat ure Granu locyt es 0 Not Estab . % [facility] ACCOU NT BILL Not Available Not Available 06/28/2024 14:39:47 05/05/19 25 05/06/2024 CBC W Auto Diffe renti al panel - Blood immature granulocytes absolute 0 text: 0.0 - 0.1 x10e3/ uL Immat ure Granu locyt es Absol tonto [place] 0.0 0.0 - 0.1 x10E3 /uL [facility] ACCOU NT BILL Not Available Not Available 06/28/2024 14:39:47 05/05/19 25 05/06/2024 CBC W Auto Diffe renti al panel - Blood Unknown Analyte Perfor med at: 01 - [place] [id number] [facility] or: Martín batres PhD, Not Available Not Available 14:39:47 05/05/19 25 05/06/2024 Compr ehens casimiro metab olic 2000 panel - Serum or Plasm a glucose [mass/volume ] in serum or plasma 96 mg/dL low: 70mg/d Lhigh: 99mg/d L Gluco se 96 70 - 99 mg/dL [facility] ACCOU NT BILL Not Available Not Available 06/28/2024 14:39:47 05/05/19 25 05/06/2024 Compr ehens casimiro metab olic 2000 panel - Serum or Plasm a BUN 5 mg/dL low: 6mg/dL high: 24mg/d L low BUN 5 (L) 6 - 24 mg/dL [facility] ACCOU NT BILL Not Available Not Available 06/28/2024 14:39:47 05/05/19 25 05/06/2024 Compr ens casimiro metab [facility] 1999 panel - Serum or Plasm a creatinine [mass/volume ] in serum or plasma 0.84 mg/dL low: 0.57mg /dLhig h: 1mg/dL Creat inine 0.84 0.57 - 1.00 mg/dL [facility] ACCOU NT BILL Not Available Not Available 06/28/2024 14:39:47 05/05/19 25 05/06/2024 Compr ens casimiro metab [facility] 1999 panel - Serum or Plasm a glomerular filtration rate [volume rate/area] in serum, plasma or blood by creatinine-b ased formula (CKD-epi)/1. 73 sq M 89 mL/mi n/1.7 3 low: 59mL/m in/1.7 3 eGFR by CKD-E PI 89 >59 mL/mi n/1.7 3 [facility] ACCOU NT BILL Not Available Not Available 06/28/2024 14:39:47 05/05/19 25 05/06/2024 [facility] panel - Serum or Plasm a BUN/creatini ne ratio 6 low: 9high: 23 low BUN/C reati nine Ratio 6 (L) 9 - 23 [facility] ACCOU NT BILL Not Available Not Available 06/28/2024 14:39:47 05/05/19 25 05/06/2024 Compr ens casimiro metab [facility] 1999 panel - Serum or Plasm a sodium 142 mmol/ L low: 134mmo l/Lhig h: 144mmo l/L Sodiu m 142 134 - 144 mmol/ L [facility] ACCOU NT BILL Not Available Not Available 06/28/2024 14:39:47 05/05/19 25 05/06/2024 Compr ehens casimiro metab olic 2000 panel - Serum or Plasm a potassium 4.5 mmol/ L low: 3.5mmo l/Lhig h: 5.2mmo l/L Potas sium 4.5 3.5 - 5.2 mmol/ L [facility] ACCOU NT BILL Not Available Not Available 06/28/2024 14:39:47 05/05/19 25 05/06/2024 Compr ehens casimiro metab olic 2000 panel - Serum or Plasm a chloride 106 mmol/ L low: 96mmol /Lhigh : 106mmo l/L Chlor july 106 96 - 106 mmol/ L [facility] ACCOU NT BILL Not Available Not Available 06/28/2024 14:39:47 05/05/19 25 05/06/2024 Compr ehens casimiro metab olic 2000 panel - Serum or Plasm a CO2 26 mmol/ L low: 20mmol /Lhigh : 29mmol /L CO2 26 20 - 29 mmol/ L [facility] ACCOU NT BILL Not Available Not Available 06/28/2024 14:39:47 05/05/19 25 05/06/2024 Compr ehens casimiro metab olic 2000 panel - Serum or Plasm a calcium 8.8 mg/dL low: 8.7mg/ dLhigh : 10.2mg /dL Calci um 8.8 8.7 - 10.2 mg/dL [facility] ACCOU NT BILL Not Available Not Available 06/28/2024 14:39:47 05/05/19 25 05/06/2024 Compr ehens casimiro metab olic 2000 panel - Serum or Plasm a protein total 5.6 g/dL low: 6g/dLh igh: 8.5g/d L low Prote in Total 5.6 (L) 6.0 - 8.5 g/dL [facility] ACCOU NT BILL Not Available Not Available 06/28/2024 14:39:47 05/05/19 25 05/06/2024 Compr ehens casimiro metab olic 2000 panel - Serum or Plasm a albumin 3.9 g/dL low: 3.9g/d Lhigh: 4.9g/d L Album in 3.9 3.9 - 4.9 g/dL [facility] ACCOU NT BILL Not Available Not Available 06/28/2024 14:39:47 05/05/19 25 05/06/2024 Compr ehens casimiro metab olic 2000 panel - Serum or Plasm a globulin total 1.7 g/dL low: 1.5g/d Lhigh: 4.5g/d L Globu noam Total 1.7 1.5 - 4.5 g/dL [facility] ACCOU NT BILL Not Available Not Available 06/28/2024 14:39:47 05/05/19 25 05/06/2024 Compr ehens casimiro metab olic 2000 panel - Serum or Plasm a bilirubin total 0.2 mg/dL low: 0mg/dL high: 1.2mg/ dL Bilir ubin Total 0.2 0.0 - 1.2 mg/dL [facility] ACCOU NT BILL Not Available Not Available 06/28/2024 14:39:47 05/05/19 25 05/06/2024 Compr ehens casimiro metab olic 2000 panel - Serum or Plasm a alkaline phosphatase 84 text: 44 - 121 IU/L Alkal ine Phosp hatas e 84 44 - 121 IU/L [facility] ACCOU NT BILL Not Available Not Available 06/28/2024 14:39:47 05/05/19 25 05/06/2024 Compr ehens casimiro metab olic 2000 panel - Serum or Plasm a AST 14 text: 0 - 40 IU/L AST 14 0 - 40 IU/L [facility] ACCOU NT BILL Not Available Not Available 06/28/2024 14:39:47 05/05/19 25 05/06/2024 Compr ehens casimiro metab olic 2000 panel - Serum or Plasm a ALT 11 text: 0 - 32 IU/L ALT 11 0 - 32 IU/L [facility] ACCOU NT BILL Not Available Not Available 06/28/2024 14:39:47 05/05/19 25 05/06/2024 Compr ehens casimiro metab olic 2000 panel - Serum or Plasm a Unknown Analyte Perfor med at: 01 - [facility] [address] [id number] [facility] or: Martín batres PhD, Not Available Not Available 14:39:47 05/05/19 25 05/06/2024 Compr ehens casimiro metab olic 2000 panel - Serum or Plasm a interpretati on and review of laboratory results Abnorm al Not Available Not Available 14:39:47 06/20/19 25 06/20/2024 LIPID PANEL cholesterol, total 116 mg/dL 100-19 9 Not Available [facility] ([facility]) [address] [place], [address], 06/20/2024 03:37:39 06/20/19 25 06/20/2024 LIPID PANEL triglyceride s 120 mg/dL 0-149 Not Available [facility] ([facility]) [address] [place], [address], 06/20/2024 03:37:39 06/20/19 25 06/20/2024 LIPID PANEL HDL cholesterol 38 mg/dL >39 below low normal Not Available [facility] ([facility]) [address] [place], [address], 06/20/2024 03:37:39 06/20/19 25 06/20/2024 LIPID PANEL VLDL cholesterol sia 22 mg/dL 5-40 Not Available [facility] ([facility]) [address] [place], [address], 06/20/2024 03:37:39 06/20/19 25 06/20/2024 LIPID PANEL LDL chol calc ([facility]) 56 mg/dL 0-99 Not Available [facility] ([facility]) [address] [place], [address], 06/20/2024 03:37:39 06/20/19 25 06/20/2024 COMP. METAB OLIC PANEL (14) glucose 82 mg/dL 70-99 Not Available [facility] ([facility]) [address] [place], [address], 06/20/2024 03:37:40 06/20/19 25 06/20/2024 COMP. METAB OLIC PANEL (14) BUN 9 mg/dL 6-24 Not Available [facility] ([facility]) [address] [place], [address], 06/20/2024 03:37:40 06/20/19 25 06/20/2024 COMP. METAB OLIC PANEL (14) creatinine 0.83 mg/dL 0.76-1 .27 Not Available [facility] ([facility]) [address] [place], [address], 06/20/2024 03:37:40 06/20/19 25 06/20/2024 COMP. METAB OLIC PANEL (14) eGFR 112 mL/mi n/1.7 3 >59 Not Available [facility] ([facility]) [address] [place], [address], 06/20/2024 03:37:40 06/20/19 25 06/20/2024 COMP. METAB OLIC PANEL (14) BUN/creatini ne ratio 11 9-20 Not Available [facility] ([facility]) [address] [place], [address], 06/20/2024 03:37:40 06/20/19 25 06/20/2024 COMP. METAB OLIC PANEL (14) sodium 139 mmol/ L 134-14 4 Not Available [facility] ([facility]) [address] [place], [address], 06/20/2024 03:37:40 06/20/19 25 06/20/2024 COMP. METAB OLIC PANEL (14) potassium 4.4 mmol/ L 3.5-5. 2 Not Available [facility] ([facility]) [address] [place], [address], 06/20/2024 03:37:40 06/20/19 25 06/20/2024 COMP. METAB OLIC PANEL (14) chloride 102 mmol/ L 96-106 Not Available [facility] ([facility]) [address] [place], [address], 06/20/2024 03:37:40 06/20/19 25 06/20/2024 COMP. METAB OLIC PANEL (14) carbon dioxide, total 26 mmol/ L 20-29 Not Available [facility] ([facility]) [address] [facility] [place], [address], 06/20/2024 03:37:40 06/20/19 25 06/20/2024 COMP. METAB OLIC PANEL (14) calcium 9.1 mg/dL 8.7-10 .2 Not Available [facility] ([facility]) [address] [facility] [place], [address], 06/20/2024 03:37:40 06/20/19 25 06/20/2024 COMP. METAB OLIC PANEL (14) protein, total 5.9 g/dL 6.0-8. 5 below low normal Not Available [facility] ([facility]) [address] [facility] [place], [address], 06/20/2024 03:37:40 06/20/19 25 06/20/2024 COMP. METAB OLIC PANEL (14) albumin 4.1 g/dL 4.1-5. 1 Not Available [facility] ([facility]) [address] [facility], [place], [address], 06/20/2024 03:37:40 06/20/19 25 06/20/2024 COMP. METAB OLIC PANEL (14) globulin, total 1.8 g/dL 1.5-4. 5 Not Available [facility] ([facility]) [address] [facility] [place], [address], 06/20/2024 03:37:40 06/20/19 25 06/20/2024 COMP. METAB OLIC PANEL (14) bilirubin, total 0.3 mg/dL 0.0-1. 2 Not Available [facility] ([facility]) [address] [facility] [place], [address], 06/20/2024 03:37:40 06/20/19 25 06/20/2024 COMP. METAB OLIC PANEL (14) alkaline phosphatase 88 IU/L 44-121 Not Available [facility] ([facility]) [address] [facility] [place], [address], 06/20/2024 03:37:40 06/20/19 25 06/20/2024 COMP. METAB OLIC PANEL (14) AST (SGOT) 15 IU/L 0-40 Not Available [facility] ([facility]) [address] [facility], [place], [address], 06/20/2024 03:37:40 06/20/19 25 06/20/2024 COMP. METAB OLIC PANEL (14) ALT (SGPT) 11 IU/L 0-44 Not Available [facility] ([facility]) [address] [facility], [place], [address], 06/20/2024 03:37:40 06/20/19 25 06/19/2024 HEMOG LOBIN A1C hemoglobin A1C 5.4 % 4.8-5. 6 Predi abete s: 5.7 - 6.4 Diabe clint: >6.4 Glyce al contr ol for adult s with diabe clint: <7.0 Not Available [facility] ([facility]) [address] [facility], [place], [address], 06/20/2024 03:37:41 04/17/19 25 04/17/2024 elect rocar diogr am No observ ation record ed. FELICE In-Office Order Internal Use Only DO Not Attach Compendium DO Not Attach Compendium, Do Not Delete/merge, [id number] 04/17/2024 11:51:02 04/17/19 elect rocar diogr am No observ ation record ed. [email or web address] Not Available 2024 11:09:55 Result Notes None recorded. Procedures Surgical History Date Name Laterality Status Provider Name and Address Organization Details Recorded Time 03/21/19 21 Cardiac Catheterization completed Justyna Johnston RN [place] - [facility] 04/17/2024 10:25:36 Imaging Results None recorded. Procedure Notes None recorded. Medical Equipment None Reported. Allergies Allergen ID Allergen Name Allergen Category Reaction Reaction Severity Criticality Documentation Date Start Date Code Code System Note Provider Name and Address Organization Details Recorded Time 18180919 acetamino phen medicatio n itching Not available low 04/17/20242015 161 RxNorm Makayla Combs LPN null, [place] - [facility] 5 10:13:34 557840 oxycodone medicatio n itching Not available low 04/17/20242015 7804 RxNorm Itchi ng Makayla Combs [employer] null, [place] - [facility] 5 10:13:37 Medications Name Sig Start Date Stop Date Status Note LastModified by Organization Details LastModified Time Prescript ion - New active Zepbound Self Pay Not Available Not Available Not Available atorvasta tin 40 mg tablet TAKE 1 TABLET BY MOUTH ONCE DAILY 06/29 completed Not Available Not Available Not Available atorvasta tin 20 mg tablet TAKE 1 TABLET BY MOUTH ONCE DAILY 04/17 completed Not Available Not Available Not Available tizanidin e 4 mg tablet TAKE 1 TABLET BY MOUTH TWICE DAILY NEEDED FOR MUSCLE SPASM active Not Available Not Available No t Available fluconazo le 150 mg tablet TAKE ONE TABLET BY MOUTH A ONE-TIME DOSE active Not Available Not Available No t Available metoprolo l succinate ER 50 mg tablet,ex tended release 24 hr Take 1 tablet by mouth once daily 2024 active Not Available Not Available Not Avai lable prednison e 5 mg tablet TAKE 1 TABLET BY MOUTH ONCE DAILY NEEDED active Not Available Not Available No t Available omeprazol e 40 mg capsule,d elayed release TAKE 1 CAPSULE BY MOUTH ONCE DAILY active Not Available Not Available No t Available aspirin 81 mg tablet,de layed release Take 1 tablet by mouth once daily active Not Available Not Available No t Available tramadol 50 mg tablet TAKE 1/2 (ONE-LEIA F) TABLET BY MOUTH ONCE DAILY active Not Available Not Available No t Available meloxicam 7.5 mg tablet TAKE 1 TABLET BY MOUTH ONCE DAILY 04/17 completed Not Available Not Available Not Available carbamaze pine 200 mg tablet TAKE 1 TABLET BY MOUTH TWICE DAILY active Not Available Not Available No t Available magnesium oxide 400 mg (241.3 mg magnesium ) tablet TAKE 1 TABLET BY MOUTH TWICE DAILY active Not Available Not Available No t Available triamcino lone acetonide 0.1 % dental paste USE ONCE DAILY active Not Available Not Available No t Available gabapenti n 300 mg capsule TAKE 1 CAPSULE BY MOUTH TWICE DAILY active Not Available Not Available No t Available metoprolo l succinate ER 25 mg tablet,ex tended release 24 hr Take 1 tablet by mouth once daily 04/17 completed Not Available Not Available Not Available clobetaso l 0.05 % topical ointment APPLY OINTMENT TOPICALL Y TO AFFECTED AREA TWICE DAILY active Not Available Not Available No t Available hydroxych loroquine 200 mg tablet TAKE 1 TABLET BY MOUTH TWICE DAILY active Not Available Not Available No t Available albuterol sulfate HFA 90 mcg/actua tion aerosol inhaler INHALE 2 PUFFS BY MOUTH EVERY 4 HOURS NEEDED FOR WHEEZING OR SHORTNES S OF BREATH active Not Available Not Available No t Available ondansetr on 4 mg disintegr ating tablet DISSOLVE 1 TABLET IN MOUTH EVERY 8 HOURS NEEDED FOR NAUSEA OR VOMITING active Not Available Not Available No t Available amoxicill in 875 mg-potass ium clavulana te 125 mg tablet TAKE 1 TABLET BY MOUTH TWICE DAILY FOR 10 DAYS 04/17 completed Not Available Not Available Not Available Enbrel SureClick 50 mg/mL (1 mL) subcutane ous pen injector 04/17 completed Not Available Not Available Not Available cholecalc iferol (vitamin D3) 1,250 mcg (50,000 unit) capsule TAKE 1 CAPSULE BY MOUTH ONCE A WEEK 04/17 completed Not Available Not Available Not Available Cimzia 400 mg/2 mL (200 mg/mL x 2) subcutane ous syringe kit active Not Available Not Available Not Available Repatha SureClick 140 mg/mL subcutane ous pen injector INJECT 140MG SUBCUTAN EOUSLY ONCE EVERY 2 WEEKS. 2024 active Not Available Not Available Not Avai lable Wegovy 0.25 mg/0.5 mL subcutane ous pen injector active Not Available Not Available Not Available Zepbound 2.5 mg/0.5 mL subcutane ous solution INJECT 0.5 ML (2.5 MG) UNDER THE SKIN ONCE WEEKLY (0.5ML= 50 UNITS) 2024 active Not Available Not Available Not Avai lable Vitals Date Recorded Body weight Body mass index (BMI) Body height Respiratory rate Heart rate Systolic And Diastolic Provider Name and Address Organization Details Last Updated DateTime 58738.8 1 g 35.9 kg/m2 162.56 cm 18 /min 65 /min 102/58 mm[Hg] Justyna Johnston RN [facility] 10:26:58 Date Recorded Body height Body mass index (BMI) Body weight Heart rate Systolic And Diastolic Provider Name and Address Organization Details Last Updated DateTime 06/29/2024 162.56 cm 36 kg/m2 12545.4 g 72 /min 104/70 mm[Hg] Justyna Johnston RN [facility] 06/29/2024 10:08:54 Social History Question Answer Notes LastModified by Organizat ion Details LastModified Time Tobacco Smoking Status Current Every Day Smoker Justyna Johnston RN [facility], [facility] 04/17/2024 10:24:58 What Is Your Level Of Caffeine Consumption? Moderate Information not available 04/17/2024 What Was The Date Of Your Most Recent Tobacco Screening? 06/29/2024 Information not available 06/29/2024 What Is Your Current Pack Years? 20-29packyear s Information not available 04/17/2024 At What Age Did You Start Smoking Tobacco? 16 Information not available 04/17/2024 How Much Tobacco Do You Smoke? 1 PPW Information not available 04/17/2024 Has Tobacco Cessation Counseling Been Provided? Yes Information not available 04/17/2024 On What Date Was Tobacco Cessation Counseling Provided? 06/29/2024 Information not available 06/29/2024 How Many Years Have You Smoked Tobacco? 20 Information not available 04/17/2024 Sex: Female Functional Status Question Answer Note LastModified by Organizat ion Details LastModified Time Do you use any illicit or recreational drugs? No Information not available 04/17/2024 Do you or have you ever used any other forms of tobacco or nicotine? No Information not available 04/17/2024 What is your level of alcohol consumption? None Information not available 04/17/2024 Mental Status None recorded. Family History Nothing Reported. Medical History No medical history recorded. Past Encounters Encounter ID Performer Location Encounter Start Date Encounter Closed Date Diagnosis/Indication Diagnosis SNOMED-CT Code Diagnosis ICD10 Code Diagnosis Note [id number] Nuno De Leon MD [facility] [address] [place] [address] 04/17/2024 10:10:43 04/23/2024 09:21:42 Essential hypertension 48942652 I10 Low-sodium diet, bleeding blood pressure monitoring . Continue metoprolol succinate 50 mg daily. Palpitations 55922078 R0 0.2 Brief spurts of atrial ectopics noted on previous event monitor. Currently monitoring using smart watch. Smart watch tracing reviewed in clinic with no significan t arrhythmia s. Hydration, limiting caffeine/ alcohol and ongoing smart watch monitoring reinforced . Nicotine dependence 5629 4008 F17.200 Nicotine cessation reinforced . Familial hypercholesterolemia 374126708 E78.01 Patient with mild CAD with target LDL less than 55. Current lipid panel markedly suboptimal with myalgias with statin. After shared decision-m aking initiate Repatha 140 mg subcutaneo us q.2 weeks. Check follow-up CMP, lipid panel, HGB A1c. Statin not tolerated 413 940148 Z78.9 After initiation of Repatha we will likely discontinu e statin. Coronary arteriosclerosis 36732086 I25.10 No angina at this juncture. Aspirin 81 mg daily along with Repatha. Obesity 913681145 E66.9 Lifestyle modificati ons reviewed. May need to consider GLP 1 receptor agonist for cardiovasc ular risk reduction at future visits. [id number] Nuno De Leon MD [facility] Adames II [address] [place] [address] 06/29/2024 09:59:31 06/29/2024 15:04:26 Obesity 042841450 E66.9 Based on mild CAD, BMI greater than 30, discuss options of cardiovasc ular risk reduction. Has received clearance from GI to start GLP 1 RA given isolated episode of pancreatit is which was felt to be secondary to COVID-19. In addition patient relates to me that her rheumatolo gist would strongly like her to be on a GLP 1 RA for overall anti-infla mmatory benefits. We discussed at length regarding rationale, benefits, risks and alternativ es. After shared decision-m aking we will initiate Wegovy 0.25 mg subcutaneo us weekly. We will obtain a follow-up CMP, lipid panel and HGB A1c. Red flag symptoms including GI side effects discussed at length. Smoker 68765866 F17.200 nicotine cessation reinforced . Palpitations 34292797 R0 0.2 Encouraged self rhythm monitoring . Symptoms have remained stable. Continue current dose of metoprolol . Encouraged hydration, limiting caffeine/a lcohol/karol otine. Mixed hyperlipidemia 267 939736 E78.2 Tolerating Repatha with no side effects. Discontinu e atorvastat in due to lifestyle limiting myalgias. Continue current dose of Repatha. Check follow-up lipid panel as above. Plan follow-up in 4 months and p.r.n. Health Concerns Section Related Observation LastModified by Organization Detai ls LastModified Time None Recorded Concern Status LastModified by Organization Details LastModified Time None Recorded Advance Directives Directive None Recorded Payers Insurance Date Sequence Insurance Name Policy Number Policy Bridges Covered Member ID Bridges Member ID Guarantor Name 06/26/2024 1 [facility] (PP[facility] [id number] Kelsie Vaughn [id number] Kelsie Roderick Notes Date Note Type Note Provider Name and Address Organization Details Recorded Time 04/17/2024 text/html Kelsie Vaughn i s a 43 y.o. female who presents for ongoing evaluation and management of palpitations and coronary artery disease. Briefly took metoprolol 25 mg daily due to inadvertent Meron on her part but has subsequently switched to metoprolol succinate 50 mg daily with improvement in symptoms of palpitations. No chest pain. Reports extensive myalgias related to her SLE with recent increase in dose of atorvastatin with some significant increase in myalgias. Denies chest pain or pressure. Working on nicotine cessation. Nuno De Leon MD Attn: Accounting[address] [facility], [place], [address], [facility] 04/17/2024 13:02:04 06/29/2024 text/html HPI:Kelsie hale ents for follow-up of palpitations and PVCs. Palpitations stable. No chest pain or pressure. Reports left hip pain plans follow-up with rheumatology. Has been seen by GI who feel that pancreatitis was related to COVID-19 with no reservations to starting GLP 1 RA. Patient reports struggles with weight loss secondary to rheumatologic conditions and concerned about increased cardiovascular risk. Cardiac diagnostics:coronary calcium score, April 2024:0Echocardiogram , 01/12/2021 with preserved biventricular systolic function, no pulmonary hypertension, no advanced valvular disease.Holter monitor, 12/12/2020: Sinus rhythm with average heart rate 82 beats per minute, no clinically significant arrhythmias, symptom triggered events correlated with sinus rhythm to sinus tachycardiaPharmacol ogic stress test, 02/02/2021: Moderate size partially reversible anterolateral and apical perfusion defect.Cardiac catheterization, 02/18/2021, mild nonobstructive Coronary Artery Disease in the LAD and diagonal distributionEchocard iogram September 2021, [facility] in the setting of COVID-19: Preserved biventricular systolic function, LVEF 60-65%, thickened pericardium with small pericardial hour Holter monitor, 03/08/2022: Sinus rhythm throughout the study duration with 4% spent in bradycardia, no PVCs noted, Pac burden less than 1% Nuno De Leon MD Attn: Accounting[address] [facility], [place], [address], [place] [facility] 06/29/2024 10:51:42
--- OUTSIDE RECORDS SUMMARY | 2024-10-07 20:21 | XMS_ITS | Clinical Summary ---
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 Legal Sex Female 8:43 AM CDT Gender Identity Not on file Sexual Orientation Not on file Plan of Treatment Health Maintenance Due Date Last Done Comments Cervical Cancer Screening Pa p Smear (Age 30 to 64) Every 3 Years 1981 Annual Physical 1984 Hepatitis C 12/19/1999 DTaP, Tdap and Td Vaccines ( 1 - Tdap) 2000 Hepatitis B Vaccines (1 of 3 - 19+ 3-dose series) 2000 Cervical Cancer Screening Pa p with HPV Testing (Age 30 to 64) Every 5 Years 12/19/2011 Cervical Cancer Screening with HPV 12/19/2011 Mammogram Screening 2021 COVID-19 Vaccine ( - 2023-2 5 season) 2023 HPV Vaccines Aged Out No longer eligi ble based on patient's age to complete this topic Meningococcal B Vaccine Aged Out No l onger eligible based on patient's age to complete this topic Meningococcal Vaccine Aged Out No linnea carleen eligible based on patient's age to complete this topic Pneumococcal Vaccine: Pediat rics (0 to 5 Years) and At-Risk Patients (6 to 49 Years) Aged Out No longer eligible b ased on patient's age to complete this topic RSV Immunizations Under 20 Months Aged Out No longer eligible based on patient's age to complete this topic Insurance [facility] Care Teams Drug Enforcement Agent Relationship Specialty Start Date End Date Monalisa John PA [address] [place] [address] PCP - General PHYSICIAN CLAIM ADJUSTER 01/01/20
--- OUTSIDE RECORDS SUMMARY | 2024-10-07 20:21 | XMS_ITS | Clinical Summary ---
Author Organization [facility] [employer] Address [address] [place] [address] Care Team Providers Care Chef Passenger Vessel Name Role Phone Monalisa John PA-C Primary Care Provider [phone] Source Comments [facility] [employer],non-owned Affiliates and Associated Physician Practices is amultiple site organization consisting of ambulatory clinics and hospital sitesin [place], [place], [place] and [place]. This disclosure is being madepursuant to the Care Everywhere program and may not contain all information available regarding this patient. Last updated 17.[facility] [employer] Allergies Active Allergy Reactions Criticality Noted Date Comments Acetaminophen Itching Low 07/16/2015 Itching Oxycodone Itching Low 07/16/2015 Itching Medications * Be aware that medications may not be up to date on this document. Alwaysverify current medications with the patient. Dronabinol (MEDICAL MARIJUANA) Use 1 Dose as instructed 2 times daily as needed Active magnesium oxide (MAG-OX) 400 MG tablet Take 1 (one) tablet by mouth 2 times daily 03/05/20 21 Active albuterol HFA (Proventil; Ventolin; Proair) 108 (90 Base) MCG/ACT inhaler 01/29/20 21 Active metoprolol succinate XL 24hr (Toprol XL) 50 MG tablet Take 1 (one) tablet by mouth once daily 05/12/19 23 Active dilTIAZem (Cardizem) 60 MG tablet TAKE 1 TABLET BY MOUTH ONCE DAILY NEEDED FOR PALPITATIONS 08/07/19 23 Active fluticasone propionate (Flonase) 50 MCG/ACT nasal spray Bath 2 (two) sprays into the nose once daily as needed Active ondansetron, disintegratin g, (Zofran ODT) 4 MG tablet Take 1 (one) tablet by mouth every 8 hours as needed 09/01/19 22 Active dicyclomine (Bentyl) 20 MG tablet Take 1 (one) tablet by mouth every 6 hours as needed 05/02/19 23 Active omeprazole (PriLOSEC) 20 MG capsule Take 1 (one) capsule by mouth once daily 11/24/19 23 Active omeprazole (PriLOSEC) 40 MG capsule Take 1 (one) capsule by mouth 2 times daily 03/23/19 24 Active triamcinolone acetonide (Kenalog) 0.1 % cream Apply to affected area 2 times daily Active certolizumab pegol (Cimzia) injection Inject 400 (four hundred) mg subcutaneously every 28 days . Maintenance. 1 kit 10 05/09/19 24 Active traMADol (Ultram) 50 MG tablet Take 0.5 (one-half) tablet by mouth once daily 11/22/19 24 Active gabapentin (Neurontin) 300 MG capsule Take 1 (one) capsule by mouth 2 times daily 11/01/19 24 Active aspirin EC (Ecotrin) 81 MG tablet Take 1 (one) tablet by mouth once daily 11/23/19 24 2024 Active carBAMazepine (TEGretol) 200 MG tablet Take 1 (one) tablet by mouth 2 times daily 09/28/19 24 Active certolizumab pegol (Cimzia, 2 Syringe,) injection INJECT 400 MG UNDER THE SKIN EVERY 28 DAYS. (MAINTENANCE) 1 kit 5 04/30/19 25 Active Repatha SureClick 140 MG/ML auto-injector INJECT 140MG SUBCUTANEOUSLY ONCE EVERY 2 WEEKS. Active hydroxychloro quine (Plaquenil) 200 MG tabletIndicat ions:Seronega tive rheumatoid arthritis (HCC) Take 1 (one) tablet by mouth 2 times daily 180 tablet 1 05/04/19 25 Active triamcinolone acetonide (Kenalog In Orabase) 0.1 % paste Take by mouth once daily 5 g 1 06/07/19 25 Active tiZANidine (Zanaflex) 4 MG tabletIndicat ions:Other chronic pain TAKE 1 TABLET BY MOUTH TWICE DAILY NEEDED FOR MUSCLE SPASM 90 tablet 07/03/19 25 Active clobetasol (Temovate) 0.05 % ointment Apply to affected area 2 times daily . Apply 1g to rash. 30 g 09/01/19 25 Active Tirzepatide-W eight Management (Zepbound) 2.5 MG/0.5ML SOLN INJECT 0.5 ML (2.5 MG) UNDER THE SKIN ONCE WEEKLY (0.5ML= 50 UNITS) 08/24/19 25 Active predniSONE (Deltasone) 5 MG tabletIndicat ions:Inflamma tory arthritis Take 1 tablet by mouth once daily 90 tablet 09/25/19 25 Active predniSONE (Deltasone) 5 MG tabletIndicat ions:Inflamma tory arthritis Take 1 (one) tablet by mouth once daily 90 tablet 05/04/19 25 2024 Discontinued Active Problems Problem Noted Date Diagnosed Date Seronegative rheumatoid arthritis 08/22/2019 Systemic lupus erythematosus 10/29/2016 Trochanteric bursitis of both hips 07/14/2016 Cervical radiculopathy 04/07/2016 Chronic pain syndrome 11/12/2015 Fibromyalgia 11/12/2015 Systemic lupus 10/22/2015 Encounters Date Type Department Care Team Description 09/23/2024 Refill [facility] Rheumatology [address] [place] [address] Aida Shah MD Refill Request 09/11/2024 9:00 AM CDT Office Visit [facility] Rheumatology [address] [place] [address] [phone] Aida Shah MD Seronegative rheumatoid arthritis (HCC) (Primary Dx) 08/31/2024 Telephone [facility] Rheumatology [address] [place] [address] [phone] Aida Shah MD Medication Problem from Last 3 Months Family History Medical History Relation Name Comments Hypertension Father Arthritis - Rheumatoid Mother Hypertension Mother Relation Name Status Comments Father Mother Social History Tobacco Use Types Packs/Day Years Used Date Smoking Tobacco: Light Smoker Cigarettes 1 16 Smokeless Tobacco: Never Tobacco Cessation:Ready to Q uit: Not Asked; Counseling Given: Not Answered Comments:maybe 2 a week Alcohol Use Standard Drinks/Week Comments No 0 (1 standard drink = 0.6 oz pur e alcohol) PHQ-2 Answer Date Recorded Patient Health Questionnaire-2 Score 0 09/11/2024 Comments No Sex and Gender Information Value Date Recorded Sex Assigned at Not on file Legal Sex Female 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 Gender Identity Not on file Sexual Orientation Not on file Last Filed Vital Signs Vital Sign Reading Time Taken Comments Blood Pressure 106/67 09/11/2024 8:43 AM CDT Pulse 71 09/11/2024 8:43 AM CDT Temperature 36.9 C (98.4 F) 05/17/2018 10:37 AM INTERNET MARKETING EXECUTIVE Respiratory Rate 16 09/11/2024 8:43 AM CDT Oxygen Saturation 99% 09/11/2024 8:43 AM CDT Inhaled Oxygen Concentration - - Weight 87.4 kg (192 lb 9.6 oz) 09/11/2024 8:43 A M CDT Height 162.6 cm (5' 4) 05/04/2024 9:00 AM INTERNET MARKETING EXECUTIVE Body Mass Index 33.06 05/04/2024 9:00 AM INTERNET MARKETING EXECUTIVE Plan of Treatment Upcoming Encounters Date Type Department Care Team (Late st Contact Info) Description 03/12/2025 9:20 AM INTERNET MARKETING EXECUTIVE Office Visit [facility] - Rheumatology [address] [place] [address] Aida Shah MD [address] [place] [phone] Health Maintenance Due Date Last Done Comments LIPID TESTING 1981 HIV SCREENING 1996 DTAP/TDAP/TD VACCINES (1 - Tdap) 2000 HEPATITIS B VACCINE (1 of 3 - 19+ 3-dose series) 2000 PNEUMOCOCCAL VACCINE (1 of 2 - PCV) 2000 HPV VACCINE (1 - 3-dose SCDM series) 2008 COVID-19 VACCINE ( - season) 2023 INFLUENZA VACCINE (#1) 2024 MAMMOGRAM 02/05/2026 02/06/2024, 01/19, 02/03/2023, Additional history exists SCREENING FOR DIABETES 05/05/2027 , 12/02/2023, 04/15/2023, Additional history exists ZOSTER VACCINE (1 of 2) 12/19/2031 HEPATITIS C SCREENING Completed 12/02/2023 , 08/10/2022, 07/08/2021, Additional history exists DEPRESSION SCREENING Completed 09/11/2024, 04/06/19 HIB VACCINE Aged Out No longer eligi ble based on patient's age to complete this topic MENINGOCOCCAL (Group B) VACCINE SHARED DECISION-MAKING Aged Out No longer eligible based on patient's age to complete this topic MENINGOCOCCAL GROUPS A/C/Y/W VACCINE Aged Out No longer eligible based on patient's age to complete this topic Procedures Procedure Name Priority Date/Time Associated Diagnosis Comments COMPREHENSIVE METABOLIC PANEL Routine 05/05/2024 9:34 AM INTERNET MARKETING EXECUTIVE Inflammatory arthritis HEPATITIS SCREEN ACUTE ([facility]) Routine 12/02/2023 10:31 AM CDT Seronegative rheumatoid arthritis from Last 3 Months or Most Recently Relevant to Health Maintenance Results * (ABNORMAL) COMPREHENSIVE METABOLIC PANEL (05/05/2024 9:34 AM INTERNET MARKETING EXECUTIVE) Glucose 96 70 - 99 mg/dL [facility] ACCOUNT BILL BUN 5(L) 6 - 24 mg/dL [facility] ACCOUNT BILL Creatinine 0.84 0.57 - 1.00 mg/dL [facility] ACCOUNT BILL eGFR by CKD-EPI 89 >59 mL/min/1.7 3 [facility] ACCOUNT BILL BUN/Creatinine Ratio 6(L) 9 - 23 [facility] ACCOUNT BILL Sodium 142 134 - 144 mmol/L [facility] ACCOUNT BILL Potassium 4.5 3.5 - 5.2 mmol/L [facility] ACCOUNT BILL Chloride 106 96 - 106 mmol/L [facility] ACCOUNT BILL CO2 26 20 - 29 mmol/L [facility] ACCOUNT BILL Calcium 8.8 8.7 - 10.2 mg/dL [facility] ACCOUNT BILL Protein Total 5.6(L) 6.0 - 8.5 g/dL [facility] ACCOUNT BILL Albumin 3.9 3.9 - 4.9 g/dL [facility] ACCOUNT BILL Globulin Total 1.7 1.5 - 4.5 g/dL [facility] ACCOUNT BILL Bilirubin Total 0.2 0.0 - 1.2 mg/dL [facility] ACCOUNT BILL Alkaline Phosphatase 84 44 - 121 IU/L [facility] ACCOUNT BILL AST 14 0 - 40 IU/L [facility] ACCOUNT BILL ALT 11 0 - 32 IU/L [facility] ACCOUNT BILL Blood BLOOD SPECIMEN / Unknown 05/05/2024 9:34 AM INTERNET MARKETING EXECUTIVE 05/05/2024 Narrative [facility] ACCOUNT BILL - 05/06/2024 7:08 AM INTERNET MARKETING EXECUTIVE Performed at: - Lab[address] [id number] Pecan Mallow Dipper: Man Ryan PhD, Phone: [phone] Aida Shah MD LAB - CHEMISTRY ORDERABLES Final Result Performing Organization Address [facility] de Phone Number [facility] ACCOUNT BILL [address] [place] [address] * HEPATITIS SCREEN ACUTE ([facility]) (12/02/2023 10:31 AM CDT) Pathologist [facility] Hepatitis A Virus Antibody IgM Negative Negative [facility] ACCOUNT BILL Comment: A negative anti-HAV IgM result suggests no recent or current HAV infection. Hepatitis B Virus Surface Antigen Negative Negative [facility] ACCOUNT BILL Hepatitis B Core Virus Antibody IgM Negative Negative [facility] ACCOUNT BILL Hepatitis C Antibody Non Reactive Non Reactive [facility] ACCOUNT BILL Comment: Performed at: [facility] [id number] Pecan Mallow Dipper: Man Ryan PhD, Phone: [phone] Interpretation Comment [facility] ACCOUNT BILL Comment: Not infected with HCV unless early or acute infection is suspected (which may be delayed in an immunocompromised individual), or other evidence exists to indicate HCV infection. Blood BLOOD SPECIMEN / Unknown 12/02/2023 10:31 AM CDT 12/02/2023 Narrative [facility] ACCOUNT BILL - 12/03/2023 6:13 AM CDT Performed at: [address] [place] [id number] Pecan Mallow Dipper: Man Ryan PhD, Phone: [phone] Aida Shah MD LAB - CHEMISTRY ORDERABLES Final Result Performing Organization Address [facility] Co de Phone Number [facility] ACCOUNT BILL [address] [place] [address] from Last 3 Months or Most Recently Relevant to Health Maintenance Insurance [employer] Care Teams Chef Passenger Vessel Relationship Specialty Start Date End Date Monalisa John PAJosé ManuelC PCP - General 03/10/20
--- OUTSIDE RECORDS SUMMARY | 2024-10-07 20:21 | XMS_ITS | Encounter Summary ---
Author Organization [facility] Address [address] [place] [address] Phone Care Team Providers Care Mamma Logist Name Role Phone Monalisa John Primary Care Provider [phone] Elizabeth Alvarez NP Unavailable Encounter Details Date Type Department Care Team (Late st Contact Info) Description 09/06/2024 Results Follow-Up [facility] Allergy and Immunology [address] [facility] [address] [place] [address] Yannick Rincon MD [address] [place] [address] Strep pneumoniae antibody serotypes, BLOOD MISC TO [facility] Social History Tobacco Use Types Packs/Day Years [...] on file 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 Gender Identity Female 09/05/2020 9:47 AM CDT Sexual Orientation Straight 09/05/2020 9: 47 AM CDT Occupation Industry Job Start Date Job End Date Disabled Not on file Not on file Not on file documented as of this encounter Miscellaneous Notes * Telephone Encounter - Radha Shah RN - 09/27/2024 1:29 PM CDT Talked with [facility] on status and it is still in auth process documented in this encounter Plan of Treatment Not on file documented as of this encounter Visit Diagnoses Not on filedocumented in this encounter Care Teams Mamma Logist Relationship Specialty Start Date End Date Monalisa John PA [address] [place] [address] PCP - General Internal Medicine 08/22/18 Elizabeth Alvarez NP [address] [place] [address] Nurse Practitioner Urology 05/04/22 documented as of this encounter
[2024-10-07 20:31] VITALS: BP 133/81; RESP 16; TEMP 36.5; O2SAT 99
[2024-10-07 22:01] LABS: BEDSIDEPREGUCG Negative (Negative)
[2024-10-07 22:10] VITALS: BP 118/73; PULSE 73; RESP 8; TEMP 36.6; O2SAT 97
[2024-10-07 22:13] LABS: Hematocrit 39.6 % (37.0-47.0); Hemoglobin 13.4 g/dL (12.0-15.0); Immature Granulocyte Percent A 0.2 % (0-0.5); Lymphocytes Absolute Auto 3.52 K/mm3 (0.9-3.2); Mean Corpuscular HGB Conc 33.8 g/dl (32-36); Mean Corpuscular Hemoglobin 31.5 pg (26-34); Mean Corpuscular Volume 93.0 fl (80-100); Nucleated Red Blood Cells Absolute Auto 0.000 K/mm3 (0.0-0.012); Nucleated Red Blood Cells Perc 0.0 % (0.0-0.2); Platelet Count Result 194 k/mm3 (150-375); Red Blood Count 4.26 M/mm3 (4.2-5.4); White Blood Count 11.2 K/mm3 (4.5-10.0)
--- OUTSIDE RECORDS SUMMARY | 2024-10-07 22:13 | XMS_ITS ---
Author Organization [facility] [facility] Address [address] [place] [address] Care Team Providers Care Gmat Tutor Name Role Phone Monalisa John Primary Care Provider [phone]- [phone] Elizabeth Alvarez NP Unavailable Specialty Therapies Status:Under Review (Active) Start date:09/18/2024 Enrollment date:09/18/2024 Related program episode:Home Infusion (Active) Continued Care and Services Coordination
--- OUTSIDE RECORDS SUMMARY | 2024-10-07 22:13 | XMS_ITS | Encounter Summary ---
Author Organization 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
--- OUTSIDE RECORDS SUMMARY | 2024-10-07 22:13 | XMS_ITS | Encounter Summary ---
Author Organization [facility] Address [address] [place] [address] Phone Care Team Providers Care Satellite Manager Name Role Phone Monalisa John Primary Care Provider [phone] Elizabeth Alvarez NP Unavailable [phone] Encounter Details Date Type Department Care Team (Late st Contact Info) Description 09/06/2024 Results Follow-Up [facility] Allergy and Immunology [address] [facility] [address] [place] [address] Yannick Rincon MD [address] [place] [address] Strep pneumoniae antibody serotypes, BLOOD MISC TO [place] Social History Tobacco Use Types Packs/Day Years [...] on file 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 Gender Identity Female 09/05/2020 9:47 AM CDT Sexual Orientation Straight 09/05/2020 9: 47 AM CDT Occupation Industry Job Start Date Job End Date Disabled Not on file Not on file Not on file documented as of this encounter Miscellaneous Notes * Telephone Encounter - Radha Shah RN - 09/27/2024 1:29 PM CDT Talked with [facility] on status and it is still in auth process documented in this encounter Plan of Treatment Not on file documented as of this encounter Visit Diagnoses Not on filedocumented in this encounter Care Teams Satellite Manager Relationship Specialty Start Date End Date Monalisa John PA [address] [place] [address] PCP - General Internal Medicine 08/22/18 Elizabeth Alvarez NP [address] [place] [address] Nurse Practitioner Urology 05/04/22 documented as of this encounter
--- OUTSIDE RECORDS SUMMARY | 2024-10-07 22:13 | XMS_ITS | Encounter Summary ---
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 HAND Gender Identity Female 09/05/2020 9:47 AM CDT Sexual Orientation Straight 09/05/2020 9: 47 AM CDT Occupation Industry Job Start Date Job End Date Disabled Not on file Not on file Not on file documented as of this encounter Plan of Treatment Not on file documented as of this encounter Visit Diagnoses Not on filedocumented in this encounter Care Teams Horse Farm Manager Relationship Specialty Start Date End Date Monalisa John PA [address] [place], [place] [phone] PCP - General Internal Medicine 08/22/18 Elizabeth Alvarez NP [address] [place] [address] Nurse Practitioner Urology 05/04/22 documented as of this encounter
--- OUTSIDE RECORDS SUMMARY | 2024-10-07 22:13 | XMS_ITS | Clinical Summary ---
Author Organization [facility] Address [address] [facility] [place] [address] Care Team Providers Care Side Show Entertainer Name Role Phone Monalisa John PA-C Primary Care Provider [phone] Source Comments [facility],non-owned Affiliates and Associated Physician Practices is amultiple site organization consisting of ambulatory clinics and hospital sitesin [place], [place], [place] and [place]. This disclosure is being madepursuant to the Care Everywhere program and may not contain all information available regarding this patient. Last updated 17.[facility] Allergies Active Allergy Reactions Criticality Noted Date [...] fluticasone propionate (Flonase) 50 MCG/ACT nasal spray Echo 2 (two) sprays into the nose once [...] Type Department Care Team Description 09/23/2024 Refill [facility] Rheumatology [address] [place] [id number] Aida Shah MD Refill Request 09/11/2024 9:00 AM CDT Office Visit [facility] Rheumatology [address] [place] [address] [phone] Aida Shah MD Seronegative rheumatoid arthritis (HCC) (Primary Dx) 08/31/2024 Telephone [facility] Rheumatology [address] [place] [address] [phone] Aida Shah MD Medication Problem from Last [...] on file Legal Sex Female 5:03 AM MDS MANAGER Gender Identity Not on file Sexual Orientation Not on file Last Filed Vital Signs Vital Sign Reading Time Taken Comments Blood Pressure 106/67 09/11/2024 8:43 AM CDT Pulse 71 09/11/2024 8:43 AM CDT Temperature 36.9 C (98.4 F) 05/17/2018 10:37 AM MDS MANAGER Respiratory Rate 16 09/11/2024 8:43 AM CDT Oxygen Saturation 99% 09/11/2024 8:43 AM CDT Inhaled Oxygen Concentration - - Weight 87.4 kg (192 lb 9.6 oz) 09/11/2024 8:43 A M CDT Height 162.6 cm (5' 4) 05/04/2024 9:00 AM MDS MANAGER Body Mass Index 33.06 05/04/2024 9:00 AM MDS MANAGER Plan of Treatment Upcoming Encounters Date Type Department Care Team (Late st Contact Info) Description 03/12/2025 9:20 AM MDS MANAGER Office Visit [facility] - Rheumatology [address] [place] [address] Aida Shah MD [address] [place] [phone] Health Maintenance Due Date Last Done [...] COMPREHENSIVE METABOLIC PANEL Routine 05/05/2024 9:34 AM MDS MANAGER Inflammatory arthritis HEPATITIS SCREEN ACUTE ([facility]) Routine 12/02/2023 10:31 AM CDT Seronegative rheumatoid arthritis from Last 3 Months or Most Recently Relevant to Health Maintenance Results * (ABNORMAL) COMPREHENSIVE METABOLIC PANEL (05/05/2024 9:34 AM MDS MANAGER) Glucose 96 70 - 99 mg/dL [facility] [...] BLOOD SPECIMEN / Unknown 05/05/2024 9:34 AM MDS MANAGER 05/05/2024 Narrative [facility] ACCOUNT BILL - 05/06/2024 7:08 AM MDS MANAGER Performed at: - [address] [id number] Software Integrator: Man Ryan PhD, Phone: [phone] Aida Shah MD LAB - CHEMISTRY ORDERABLES Final Result Performing Organization Address [facility] de Phone Number [facility] ACCOUNT BILL [address] [place] [address] * HEPATITIS SCREEN ACUTE ([facility]) (12/02/2023 10:31 AM CDT) Pathologist [facility] Hepatitis A Virus Antibody IgM Negative Negative [facility] ACCOUNT BILL Comment: A negative anti-HAV IgM result suggests no recent or current HAV infection. Hepatitis B Virus Surface Antigen Negative Negative [facility] ACCOUNT BILL Hepatitis B Core Virus Antibody IgM Negative Negative [facility] ACCOUNT BILL Hepatitis C Antibody Non Reactive Non Reactive [facility] ACCOUNT BILL Comment: Performed at: [facility] [address] [id number] Software Integrator: Man Ryan PhD, Phone: [phone] Interpretation Comment [facility] ACCOUNT BILL Comment: Not infected with HCV unless early or acute infection is suspected (which may be delayed in an immunocompromised individual), or other evidence exists to indicate HCV infection. Blood BLOOD SPECIMEN / Unknown 12/02/2023 10:31 AM CDT 12/02/2023 Narrative [facility] ACCOUNT BILL - 12/03/2023 6:13 AM CDT Performed at: [address] [place] [id number] Software Integrator: Man Ryan PhD, Phone: [phone] Aida Shah MD LAB - CHEMISTRY ORDERABLES Final Result Performing Organization Address [facility] Co de Phone Number [facility] ACCOUNT BILL [address] [place] [address] from Last 3 Months or Most Recently Relevant to Health Maintenance Insurance [facility] Address: [facility] [id number] [place] [phone] Care Teams Side Show Entertainer Relationship Specialty Start Date End Date Monalisa John PAJosé ManuelC PCP - General 03/10/20
--- OUTSIDE RECORDS SUMMARY | 2024-10-07 22:13 | XMS_ITS | Clinical Summary ---
Author Organization [facility] Address [address] [place] [address] Care Team Providers Care Recruiting Associate Name Role Phone Monalisa John Primary Care Provider [phone] Elizabeth Alvarez NP Unavailable [phone] Allergies Active Allergy Reactions Criticality Noted [...] 05/14/2023 Assessment & Plan (05/14/2023 8:37 PM EQUIPMENT OPERATOR WAREHOUSE): The parotid gland has returned to normal [...] b.i.d. Assessment & Plan (05/14/2023 8:00 PM EQUIPMENT OPERATOR WAREHOUSE): Patient's symptoms are responding to the antibiotic. [...] reassess Assessment & Plan (05/14/2023 7:38 PM EQUIPMENT OPERATOR WAREHOUSE): Patient has noted swelling just in front [...] Reviewed options for assistance with cessation. Reviewed technician terminal and repeater sequela associated with smoking. Pt declines assistance at this time but may contact the office at anytime for further help as they desire. Assessment & Plan (11/30/2022 8:34 PM CDT): Encouraged smoking cessation. Discussed 3 minutes. Reviewed options for assistance with cessation. Reviewed technician terminal and repeater sequela associated with smoking. Pt declines assistance [...] provided Assessment & Plan (02/14/2022 7:09 PM EQUIPMENT OPERATOR WAREHOUSE): Mammogram order provided Adrenal adenoma, left 02/13/2022 Assessment & Plan (02/13/2022 10:49 PM EQUIPMENT OPERATOR WAREHOUSE): I do not know the size of [...] is to follow the recommendations from her supervisor research kennel regarding her an autoimmune medications while on antibiotics. Pericardial effusion 11/05/2021 Assessment & Plan (11/23/2021 6:15 PM CDT): Continue per cardio Dr. De Leon Coronary artery disease of n ative artery of [place] heart with stable angina pectoris 11/05/2021 Assessment & Plan (01/08/2024 9:34 PM CDT): Patient is to continue with Dr. De Leon/cardiology Continue statin, aspirin and beta-sera Assessment & Plan (05/02/2022 10:51 PM EQUIPMENT OPERATOR WAREHOUSE): Continue statin calcium channel sera She is on an AC Assessment & Plan (02/13/2022 10:49 PM EQUIPMENT OPERATOR WAREHOUSE): Continue per Cardiology. Patient is on statinand [...] [facility] Will f/u on results and [...] sodium. Assessment & Plan (05/04/2022 2:07 PM EQUIPMENT OPERATOR WAREHOUSE): Patient presents with acute onset flank pain [...] We reviewed normal cta chest/upper abdomen from [facility] from er visit. Leukocytosis 10/26/2021 Assessment & [...] 2022) Assessment & Plan (05/04/2022 1:48 PM EQUIPMENT OPERATOR WAREHOUSE): History of DVT in the left upper extremity. Awaiting recommendations from Hematology appointment to determine status of anticoagulant use. Assessment & Plan (05/02/2022 10:50 PM EQUIPMENT OPERATOR WAREHOUSE): Continue Xarelto. Awaiting appointment with Hematology to determine long-term plans of the need for an AC. Assessment & Plan (02/13/2022 10:48 PM EQUIPMENT OPERATOR WAREHOUSE): Patient continues with the Xarelto. Had DVT [...] 09/23/2021 Assessment & Plan (02/03/2022 9:34 AM EQUIPMENT OPERATOR WAREHOUSE): -stool studies as above. No evidence of [...] done. Assessment & Plan (05/02/2022 10:50 PM EQUIPMENT OPERATOR WAREHOUSE): This is a significant, separately identifiable problem [...] (07/30/2021): Added automatically from request for surgery [id number] Assessment & Plan (05/02/2022 10:49 PM EQUIPMENT OPERATOR WAREHOUSE): Status post surgery. Continue per Dr. Pitts. She continues to follow with him about every 6 months. Assessment & Plan (10/02/2021 2:12 PM CDT): - S/p OR on 09/29/21 for right neurogenic thoracic outlet decompression - Pain control: MEN'S DESIGNER until POD 2, received pre-op block. Add [...] 05/30/2021 Assessment & Plan (05/30/2021 12:00 PM EQUIPMENT OPERATOR WAREHOUSE): Persistent pain after being tackled by a [...] 05/30/2021 Assessment & Plan (05/30/2021 12:01 PM EQUIPMENT OPERATOR WAREHOUSE): Persistent pain after being tackled by a [...] 02/15/2021 Assessment & Plan (02/15/2021 6:07 PM EQUIPMENT OPERATOR WAREHOUSE): See cough Cough 02/15/2021 Assessment & Plan [...] immediately. Assessment & Plan (02/15/2021 6:06 PM EQUIPMENT OPERATOR WAREHOUSE): Patient to presume positive COVID until results are available and self isolate for 10 days from the onset of sxs. Check COVID test thru [facility] collection site in [place]. If positive, complete quarantine and consider monoclonal [...] water often. If needed, use a hand manager global communications that contains at least 60% alcohol. Clean and disinfect frequently touched surfaces such as tables, doorknobs, countertops, etc daily. Avoid touching your eyes, nose, and mouth when possible. Other fatigue 12/12/2020 TIM (dyspnea on exertion) 12/12/2020 Palpitations 12/12/2020 Assessment & Plan (05/02/2022 10:48 PM EQUIPMENT OPERATOR WAREHOUSE): Continue per Dr. De Leon. She just changed medications so awaiting results. Will continue monitor closely Assessment & Plan (03/18/2021 12:13 PM EQUIPMENT OPERATOR WAREHOUSE): Continue per Cardiology and complete workup. Family [...] 06/05/2020 Assessment & Plan (03/18/2021 12:13 PM EQUIPMENT OPERATOR WAREHOUSE): Continue oxybutynin Assessment & Plan (06/05/2020 12:03 [...] Overview (07/18/2020): Negative workup done 06/2020 with [facility]. Plan repeat workup [...] (03/28/2020): Added automatically from request for surgery [id number] Gastroesophageal reflux disease 01/15/2020 Assessment & Plan (06/18/2024 9:33 AM CDT): Doing well on daily omeprazole. Educated on importance of avoiding certain food triggers. Also recommended for her to eat smaller portions throughout the day especially when starting Wegovy. Assessment & Plan (02/03/2022 9:34 AM EQUIPMENT OPERATOR WAREHOUSE): -EGD as above. No esophagitis noted. Gastritis+ [...] dose. Assessment & Plan (03/18/2021 12:12 PM EQUIPMENT OPERATOR WAREHOUSE): Continue pantoprazole Assessment & Plan (12/14/2020 2:47 [...] Recommend short term Mobic. She states her supervisor research kennel will only let her use Mobic 7.5mg [...] 12/28/2018 Assessment & Plan (03/18/2021 12:12 PM EQUIPMENT OPERATOR WAREHOUSE): Pre-diabetes/hyperglycemia is a precursor to Dm. Stressed [...] 05/14/2023 Assessment & Plan (05/14/2023 7:38 PM EQUIPMENT OPERATOR WAREHOUSE): Patient notes pain in both hands. Her supervisor research kennel suggest seen in ortho hand for possible injections. Will make referral to Dr. Looney for further evaluation Facial swelling 05/14/2023 08/28/2023 Assessment & Plan (05/14/2023 8:37 PM EQUIPMENT OPERATOR WAREHOUSE): The parotid gland has returned to normal [...] 24 Assessment & Plan (04/25/2023 11:41 AM EQUIPMENT OPERATOR WAREHOUSE): Discussed the patient's BMI. The BMI is above average. BMI management plan is completed. BMI Follow-up includes: nutrition counseling, exercise counseling and education provided. Acute right-sided low back p ain without sciatica 03/19/2023 01/08/2024 Assessment & Plan (03/19/2023 9:20 PM EQUIPMENT OPERATOR WAREHOUSE): Encouraged NSAIDS (if able to safely tolerate) or Tylenol. Topical preparations like Lidocaine patches, Biofreeze, ICYHOT etc as needed. Heat, stretching Avoid long periods of sitting/laying. Encouraged PT. Followup if has any problems controlling bowels or bladder or if sxs worsen. Neck pain 03/19/2023 01/08/2024 Assessment & Plan (03/19/2023 9:20 PM EQUIPMENT OPERATOR WAREHOUSE): Encouraged NSAIDS (if able to safely tolerate) or Tylenol. Topical preparations like Lidocaine patches, Biofreeze, ICYHOT etc as needed. Heat, stretching Avoid long periods of sitting/laying. Encouraged PT. Followup if has any problems controlling bowels or bladder or if sxs worsen. Coronary artery disease invo lving [place] coronary artery of [place] heart without angina pectoris 12/03/2022 01/08/2024 Periorbital [...] 04/25/19 Assessment & Plan (04/25/2023 11:40 AM EQUIPMENT OPERATOR WAREHOUSE): Discussed the patient's BMI. The BMI is above average. BMI management plan is completed. BMI Follow-up includes: nutrition counseling, exercise counseling and education provided. Assessment & Plan (03/19/2023 9:19 PM EQUIPMENT OPERATOR WAREHOUSE): Discussed the patient's BMI. The BMI is [...] 35.00-39.99. Assessment & Plan (05/14/2023 8:39 PM EQUIPMENT OPERATOR WAREHOUSE): Discussed the patient's BMI. The BMI is above average. BMI management plan is completed. BMI Follow-up includes: nutrition counseling, exercise counseling and education provided. Patient has an obesity-related condition (not limited to: hypertension, obstructive sleep apnea, osteoarthritis, hyperlipidemia, diabetes, etc.). Therefore, morbid obesity may be documented for patients with a BMI between 35.00-39.99. Assessment & Plan (05/14/2023 7:36 PM EQUIPMENT OPERATOR WAREHOUSE): Discussed the patient's BMI. The BMI is above average. BMI management plan is completed. BMI Follow-up includes: nutrition counseling, exercise counseling and education provided. Patient has an obesity-related condition (not limited to: hypertension, obstructive sleep apnea, osteoarthritis, hyperlipidemia, diabetes, etc.). Therefore, morbid obesity may be documented for patients with a BMI between 35.00-39.99. Assessment & Plan (05/14/2023 8:00 PM EQUIPMENT OPERATOR WAREHOUSE): Discussed the patient's BMI. The BMI is above average. BMI management plan is completed. BMI Follow-up includes: nutrition counseling, exercise counseling and education provided. Patient has an obesity-related condition (not limited to: hypertension, obstructive sleep apnea, osteoarthritis, hyperlipidemia, diabetes, etc.). Therefore, morbid obesity may be documented for patients with a BMI between 35.00-39.99. Assessment & Plan (03/19/2023 9:19 PM EQUIPMENT OPERATOR WAREHOUSE): Discussed the patient's BMI. The BMI is [...] Reviewed options for assistance with cessation. Reviewed technician terminal and repeater sequela associated with smoking. Pt declines assistance [...] 01/08/2024 Assessment & Plan (05/04/2022 1:51 PM EQUIPMENT OPERATOR WAREHOUSE): Send urine for culture Right foot pain 02/14/2022 01/08/2024 Assessment & Plan (05/02/2022 10:54 PM EQUIPMENT OPERATOR WAREHOUSE): This is a significant, separately identifiable problem that was evaluated and managed on the same day as the wellness exam Patient has had persistent pain. She would like another evaluation. Will make referral to Dr. Avalos. Encouraged her to bring her MRI disc with her for evaluation. Patient is in agreement with the plan Assessment & Plan (02/14/2022 7:09 PM EQUIPMENT OPERATOR WAREHOUSE): Patient with persistent right foot pain. Recommend seen Podiatry for further evaluation Chronic pain of left knee 02/14/2022 Assessment & Plan (02/14/2022 7:10 PM EQUIPMENT OPERATOR WAREHOUSE): Difficult to know if her knee is [...] loss Assessment & Plan (05/02/2022 10:51 PM EQUIPMENT OPERATOR WAREHOUSE): Continue PPI Assessment & Plan (02/13/2022 11:04 PM EQUIPMENT OPERATOR WAREHOUSE): PPI prn Obesity (BMI 30-39.9) 01/21/20222021 Assessment & Plan (01/21/2022 9:02 AM CDT): Obesity is unchanged. Discussed the patient's BMI. The BMI is above average. BMI management plan is completed. BMI Follow-up includes: nutrition counseling, exercise counseling and education provided. BMI 36.0-36.9,adult 01/21/2022 08/19/19 Assessment & Plan (05/03/2022 1:11 PM EQUIPMENT OPERATOR WAREHOUSE): Discussed the patient's BMI. The BMI is above average. BMI management plan is completed. BMI Follow-up includes: nutrition counseling, exercise counseling and education provided. Assessment & Plan (05/02/2022 10:51 PM EQUIPMENT OPERATOR WAREHOUSE): Discussed the patient's BMI. The BMI is above average. BMI management plan is completed. BMI Follow-up includes: nutrition counseling, exercise counseling and education provided. Assessment & Plan (02/14/2022 7:08 PM EQUIPMENT OPERATOR WAREHOUSE): Discussed the patient's BMI. The BMI is [...] 08/18/2022 Assessment & Plan (05/04/2022 1:50 PM EQUIPMENT OPERATOR WAREHOUSE): Discussed the patient's BMI. The BMI is above average. BMI management plan is completed. BMI Follow-up includes: nutrition counseling, exercise counseling and education provided. Patient has an obesity-related condition (not limited to: hypertension, obstructive sleep apnea, osteoarthritis, hyperlipidemia, diabetes, etc.). Therefore, morbid obesity may be documented for patients with a BMI between 35.00-39.99. Assessment & Plan (05/02/2022 10:51 PM EQUIPMENT OPERATOR WAREHOUSE): Discussed the patient's BMI. The BMI is above average. BMI management plan is completed. BMI Follow-up includes: nutrition counseling, exercise counseling and education provided. Patient has an obesity-related condition (not limited to: hypertension, obstructive sleep apnea, osteoarthritis, hyperlipidemia, diabetes, etc.). Therefore, morbid obesity may be documented for patients with a BMI between 35.00-39.99. Assessment & Plan (02/14/2022 7:08 PM EQUIPMENT OPERATOR WAREHOUSE): Discussed the patient's BMI. The BMI is above average. BMI management plan is completed. BMI Follow-up includes: nutrition counseling, exercise counseling and education provided. Patient has an obesity-related condition (not limited to: hypertension, obstructive sleep apnea, osteoarthritis, hyperlipidemia, diabetes, etc.). Therefore, morbid obesity may be documented for patients with a BMI between 35.00-39.99. Assessment & Plan (02/13/2022 10:49 PM EQUIPMENT OPERATOR WAREHOUSE): Discussed the patient's BMI. The BMI is [...] provided. Assessment & Plan (05/14/2023 8:33 PM EQUIPMENT OPERATOR WAREHOUSE): Discussed the patient's BMI. The BMI is above average. BMI management plan is completed. BMI Follow-up includes: nutrition counseling, exercise counseling and education provided. Patient has an obesity-related condition (not limited to: hypertension, obstructive sleep apnea, osteoarthritis, hyperlipidemia, diabetes, etc.). Therefore, morbid obesity may be documented for patients with a BMI between 35.00-39.99. Assessment & Plan (05/14/2023 7:37 PM EQUIPMENT OPERATOR WAREHOUSE): Discussed the patient's BMI. The BMI is [...] 05/05/20212021 Assessment & Plan (05/05/2021 3:21 PM EQUIPMENT OPERATOR WAREHOUSE): Obesity is unchanged. Discussed the patient's BMI. [...] 024 Assessment & Plan (05/02/2022 10:47 PM EQUIPMENT OPERATOR WAREHOUSE): Encouraged healthy lifestyle, good nutrition and exercise. Encouraged Calcium and Vitamin D and weight bearing exercise for bone health. Reviewed immunizations Reviewed age appropirate screenings. Assessment & Plan (03/18/2021 12:12 PM EQUIPMENT OPERATOR WAREHOUSE): Encouraged healthy lifestyle, good nutrition and exercise. [...] 10/13/2019 Assessment & Plan (04/08/2019 5:55 PM EQUIPMENT OPERATOR WAREHOUSE): Left foot/ankle/achilles pain. Appt set with Dr. [...] she is to follow up with her supervisor research kennel to determine proper use of her biologic since she will be on antibiotics. She states she will contact them but usually she has to hold it through the course of the antibiotic. Assessment & Plan (05/04/2022 1:47 PM EQUIPMENT OPERATOR WAREHOUSE): Continue per Rheumatology. Patient just started Enbrel Assessment & Plan (05/02/2022 10:47 PM EQUIPMENT OPERATOR WAREHOUSE): Continue per [facility] Assessment & Plan (02/13/2022 10:47 PM EQUIPMENT OPERATOR WAREHOUSE): Continue per Rheumatology Assessment & Plan (03/18/2021 12:11 PM EQUIPMENT OPERATOR WAREHOUSE): Continue per Rheumatology. Assessment & Plan (01/15/2020 [...] provided. Assessment & Plan (04/05/2019 10:30 AM EQUIPMENT OPERATOR WAREHOUSE): Obesity is unchanged. Discussed the patient's BMI. [...] provided. Assessment & Plan (04/05/2019 10:30 AM EQUIPMENT OPERATOR WAREHOUSE): Obesity is unchanged. Discussed the patient's BMI. [...] Department Care Team Description 09/27/[address] [facility] Home Infusion Therapy [address] [place] [address] Kassidy Ashby 09/06/2024 Results Follow-Up [facility] Allergy and Immunology [address] [facility] [address] [place] [address] Yannick Rincon MD Strep pneumoniae antibody serotypes, BLOOD MISC TO GENEVA 08/30/2024 5:20 PM CDT - 08/30/2024 11:59 PM CDT Hospital Encounter [address] [address] Hypogammaglobulinemia; Recurrent sinus infections Discharge Disposition: Discharge to home or self care 08/30/2024 9:[address] [facility] Medical Group Outpatient Lab at [address] [id number] 07/31/2024 9:00 AM CDT Clinical Support [facility] Family Medicine [address] [place] [address] Immunocompromised (Primary Dx); Other forms of systemic lupus erythematosus, unspecified organ involvement status (HCC); Need for vaccination for pneumococcus 07/26/2024 Results Follow-Up [facility] Allergy and Immunology [address] [facility] [address] [place] [address] Yannick Rincon MD IgE, IgA, IgM, Additional followed-up results: 4 07/20/2024 9:50 AM CDT Lab [facility] Infectious Diseases [address] [facility] [address] [place] [address] 07/20/2024 9:25 AM CDT - 07/20/2024 11:59 PM CDT Hospital Encounter [facility] [id number] [place] [address] Hypogammaglobulinemia; Recurrent sinus infections Discharge Disposition: Discharge to home or self care 07/20/2024 8:30 AM CDT Office Visit [facility] All[facility] and Immunology [address] [place] [address] [address] [place] [address] Yannick Rincon MD Hypogammaglobulinemia (Primary Dx); Recurrent [...] on file Legal Sex Female 3:25 AM EQUIPMENT OPERATOR WAREHOUSE Gender Identity Female 09/05/2020 9:47 AM CDT [...] this topic Medical Devices Implanted Type Area Web Page Designer Device Identifier Shelf Expiration Date Model / Serial / Lot [employer] Photofix Bovine 6x8 Pericardium Pfp 6x8 - S/ - [id number] Implanted:Qty: 1 on 09/29/2021 by rBadley Pitts MD at [facility] Graft Right: Chest [employer] [id number] 06/14/2023 PFP 6X8 / / / [id number] Cerapedics Inc 700-025 I Factor Allograft Putty Syringe Graft 2.5cc Bone - [id number] Implanted:Qty: 1 on 04/15/2020 by Jong Chavez MD at [facility] N/A: Spine Cervical [employer] Inc 700-025 / / Depuy Spine [id number] 8mm 4d Large Cage Spinal Eit Sterile Latex Free Cervical - [id number] - [id number] Implanted:Qty: 1 on 04/15/2020 by Jong Chavez MD at [facility] N/A: Spine Cervical Depuy Synthes Spine [id number] / [id number] / [id number] yuilop SL Inc [id number] Maxan 4mm 14mm Variable Angle Self Drill Spine Screw Bone - [id number] Implanted:Qty: 1 on 04/15/2020 by Jong Chavez MD at [facility] N/A: Spine Cervical [employer] Inc [id number] / / Da [employer] Inc [id number] Maxan 9mm Cervical Spine Plate Bone - [id number] Implanted:Qty: 1 on 04/15/2020 by Jong Chavez MD at [facility] N/A: Spine Cervical [employer] [id number] / / [employer] [id number] Maxan 4.5mm 14mm Variable Angle Spine Screw Bone - [id number] Implanted:Qty: 3 on 04/15/2020 by Jong Chavez MD at [facility] N/A: Spine Cervical [employer] [id number] / / Procedures Procedure Name Priority Date/Time Associated Diagnosis Comments BLOOD MISC TO GENEVA Routine 08/30/2024 5: 41 PM CDT STREP PNEUMONIAE ANTIBODY SEROTYPES Routine 08/30/2024 12:00 PM CDT Hypogammaglobulin emia Recurrent sinus infections BLOOD MISC TO GENEVA Routine 07/20/2024 9: 25 AM CDT IMMUNOGLOBULIN [...] Read Routine (OP Routine) 02/06/2024 8:59 AM EQUIPMENT OPERATOR WAREHOUSE Breast cancer screening by mammogram COLONOSCOPY 01/21/2023 9:50 AM CDT from Last 3 Months or Most Recently Relevant to Health Maintenance Results * BLOOD MISC TO GENEVA (08/30/2024 5:41 PM CDT) Test name, chem [facility] Misc See Footnote EVERARDO DOUGLASS Comment: Test Result Flag Unit RefValue Tetanus Toxoid IgG Ab, S Tetanus IgG Ab Positive REFERENCE VALUE Vaccinated: Positive (>= 0.01 IU/mL) Unvaccinated: Negative (< 0.01 IU/mL) Tetanus IgG Value 1.04 IU/mL ADDITIONAL INFORMATION This test was developed and its performance characteristics determined by [facility] in a manner consistent with CLIA requirements. This test has not been cleared or approved by the U.S. Food and Drug Administration. Test Performed by: [facility] - [address] [address] Attending Ambulatory Care: Zonia Do Ph.D.; CLIA# [id number] Blood 08/30/2024 5:41 PM CDT 08/31/2024 2:31 PM CDT Narrative [facility] CH - 09/04/2024 1:37 PM CDT TETANUS AB IGG us Yannikc Rincon MD LAB BLOOD [place] [address] [address] Department [place] [address] [facility] * Strep pneumoniae antibody serotypes [...] developed and its performance characteristics determined by [facility] in a manner consistent with CLIA requirements. This test has not been cleared or approved by the U.S. Food and Drug Administration. Test Performed by: [facility] - [address] [address] Attending Ambulatory Care: Zonia Do Ph.D.; CLIA# [id number] Blood 08/30/2024 12:0 0 PM CDT 08/30/2024 5:42 PM CDT Yannick Rincon MD LAB BLOOD ORDERABLES Fi nal Result [place] [address] [address] Department [place] [address] [facility] * BLOOD MISC TO GENEVA (07/20/2024 9:25 AM CDT) Test name, chem [facility] [place] [facility] Misc See Footnote EVERARDO DOUGLASS Comment: Test Result Flag Unit RefValue Tetanus Toxoid IgG Ab, S Tetanus IgG Ab Positive REFERENCE VALUE Vaccinated: Positive (>= 0.01 IU/mL) Unvaccinated: Negative (< 0.01 IU/mL) Tetanus IgG Value 1.31 IU/mL ADDITIONAL INFORMATION This test was developed and its performance characteristics determined by [facility] in a manner consistent with CLIA requirements. This test has not been cleared or approved by the U.S. Food and Drug Administration. Test Performed by: [facility] [address] [place] [address] Attending Ambulatory Care: Zonia Do Ph.D.; CLIA# [id number] Blood 07/20/2024 9:25 AM CDT 07/23/2024 8:59 AM CDT Narrative [facility] CH - 07/25/2024 12:12 PM CDT TETANUS AB IgG Yannick Rincon MD LAB BLOOD ORDERABLES Fi nal Result Performing Organization Address [facility] Co de Phone Number EVERARDO [address] [address] [facility] [employer] [place] [address] [facility] * (ABNORMAL) Immunoglobulin IgG subclasses [...] mg/dL CERNER CH Comment: Test Performed by: [facility] [address] [place] [address] Attending Ambulatory Care: Zonai Do Ph.D.; CLIA# [id number] Blood 07/20/2024 9:25 AM CDT 07/20/2024 8:54 PM CDT Yannick Rincon MD LAB BLOOD ORDERABLES Fi nal Result Performing Organization Address [facility] Co de Phone Number EVERARDO [address] [address] Department [employer] [place] [address] [facility] * (ABNORMAL) Immune competence (07/20/2024 9:25 AM CDT) CD3 pct 78 60 - 88 % Comment:Testing performed by : [facility], [address] [facility] [place] [address] CD3 Absolute 1,752 661 - 1,963 cells/mcL CERNER Comment:Testing performed by : [facility], [address] [facility] [place]., [address] CD4 pct 56 31 - 64 % CERNER CH Comment:Testing performed by : [facility], [address] [facility], [address] CD4 Absolute 1,220 365 - 1,294 cells/mcL CERNER CH Comment:Testing performed by : [facility], [address] [facility], [address] CD8 pct 22 12 - 40 % CERNER CH Comment:Testing performed by : [facility], [address] [facility], [address] CD8 Absolute 486 187 - 781 cells/mcL CERNER CH Comment:Testing performed by : [facility], [address] [facility], [address] CD19 pct 18 6 - 25 % CERNER CH Comment:Testing performed by : [facility], [facility], [address] CD19 Absolute 415 86 - 488 cells/mcL CERNER CH Comment:Testing performed by : [facility], [address] [id number] pct 3(L) 5 - 25 % CERNER CH Comment:Testing performed by : [facility], [address] [id number] Absolute 71(L) 76 - 467 cells/mcL CERNER CH Comment:Testing performed by : [facility], [address] CD4/CD8 ratio 2.5 CERNER CH Comment:Testing performed by : [facility], [address] Blood 07/20/2024 9:25 AM CDT 07/23/2024 10:25 AM CDT us Yannick Rincon MD LAB BLOOD ORDERABLES Fi nal Result [facility] [address] [address] Department of [employer] [place] [place] [address] * Strep pneumoniae antibody serotypes (07/20/2024 9:25 AM CDT) [facility] S. pneumo Type 1 (1) 0.8 >=1.0 mcg/mL [place] ref [facility] S. pneumo Type 2 (2) [...] developed and its performance characteristics determined by [facility] in a manner consistent with CLIA requirements. This test has not been cleared or approved by the U.S. Food and Drug Administration. Test Performed by: [facility] - [address] [address] Attending Ambulatory Care: Zonia Do Ph.D.; CLIA# [id number] Blood 07/20/2024 9:25 AM CDT 07/20/2024 8:54 PM CDT Yannick Rincon MD LAB BLOOD ORDERABLES Fi nal Result [place] [address] [address] Department of [employer] [place] [place] [address] [facility] * IgE (07/20/2024 9:25 AM CDT) IgE 8 <=100 IUnits/mL Comment:Testing performed by : [facility], [facility], [place]., [address] Blood 07/20/2024 9:25 AM CDT 07/21/2024 9:39 AM CDT Yannick Rincon MD LAB BLOOD ORDERABLES Fi nal Result Performing Organization Address City/[facility] Co de Phone Number [place] [address] [address] Department of [employer] [place] [address] * IgA (07/20/2024 9:25 AM CDT) Immunoglobulin A 126 70 - 400 mg/dL Blood 07/20/2024 9:25 AM CDT 07/20/2024 8:54 PM CDT Yannick Rincon MD LAB BLOOD ORDERABLES Fi nal Result Performing Organization Address City/[facility] Co de Phone Number [place] [id number] [address] Department of [employer] [place] [address] * IgM (07/20/2024 9:25 AM CDT) Immunoglobulin M 148 40 - 150 mg/dL Blood 07/20/2024 9:25 AM CDT 07/20/2024 8:54 PM CDT Yannick Rincon MD LAB BLOOD ORDERABLES Fi nal Result Performing Organization Address City/[facility]/ZIP Co de Phone Number [facility] [address] [address] Department [place] [address] * Screening Mammogram Bilateral W Jordan (02/06/2024 8:59 AM [employer]) Anatomical Region Laterality Modality Breast Bilateral Mammography Impressions 02/06/2024 10:03 AM [employer] BI-RADS ATLAS category (overall): 1 - Negative There is no mammographic evidence of malignancy. A 1 year screening mammogram is recommended. The patient has been or will be contacted. We recommend annual screening mammography for women at average risk of breast cancer beginning at age 40, based on guidelines of the [employer] (ACR Practice Parameter for the Performance of Screening and Diagnostic Mammography) and [employer]. For women with and elevated risk of breast cancer, please refer to the ACR Practice Parameter for specific screening recommendations. The patient will be entered into a reminder system with a target due date of 1 year for her next screening exam. Narrative 02/06/2024 10:03 AM [employer] Screening Mammogram Bilateral W Jordan: 02/06/24 The [...] Mcgill MD - 01/21/2023 9:50 AM CDT [facility] GI ENDOSCOPY Patient Name: Kelsie Vaughn Procedure Date: 01/21/2023 9:50 AM Date of : 1980 Admit Type: Outpatient Age: 42 Gender: Female Attending MD: Derrek Mcgill M.D. Room: [facility] ENDOSCOPY ROOM 06 Note Status: Finalized [...] On: 01/21/2023 9:50 AM Recognized by the [place] [employer] for promoting quality in endoscopy Derrek Mcgill MD ENDOSCOPY PROCEDURES Final Resul t from Last 3 Months or Most Recently Relevant to Health Maintenance [place] [address] [place] [address] Advance Directives For more information, please contact: [phone] * Full Code (Latest Code Status on File) Date Activated Date Inactivated Comments 09/29/2021 5:49 PM 10/03/2021 1:26 AM Care Teams Recruiting Associate Relationship Specialty Start Date End Date Monalisa John PA [address] [place] [address] PCP - General Internal Medicine 08/22/18 Elizabeth Alvarez NP [address] [place] [address] Nurse Practitioner Urology 05/04/22
--- OUTSIDE RECORDS SUMMARY | 2024-10-07 22:13 | XMS_ITS | Referral Summary ---
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 Name Role Phone Monalisa John Primary Care Provider [phone] Elizabeth Alvarez NP Unavailable [phone] Encounters Date Type Department Care Team Description 09/27/2024 Home Infusion [facility] Home Infusion Therapy [address] [place] [address] Kassidy Ashby 09/06/2024 Results Follow-Up [facility] Allergy and Immunology [address] [facility] [address] [place] [address] Yannick iRncon MD Strep pneumoniae antibody serotypes, BLOOD MISC TO [place] 08/30/2024 5:20 PM CDT - 08/30/2024 11:59 PM CDT Hospital Encounter [address] [address] Hypogammaglobulinemia; Recurrent sinus infections Discharge Disposition: Discharge to home or self care 08/30/2024 9:00 AM CDT Lab [facility] Medical Group Outpatient Lab at [address] [address] 07/31/2024 9:00 AM CDT Clinical Support [facility] Family Medicine [address] [facility] [address] [place] [address] Immunocompromised (Primary Dx); Other forms of systemic lupus erythematosus, unspecified organ involvement status (HCC); Need for vaccination for pneumococcus 07/26/2024 Results Follow-Up [facility] Allergy and Immunology [address] [facility] [address] [place] [phone] Yannick Rincon MD IgE, IgA, IgM, Additional followed-up results: 4 07/20/2024 9:25 AM CDT - 07/20/2024 11:59 PM CDT Hospital Encounter [address] [address] Hypogammaglobulinemia; Recurrent sinus infections Discharge Disposition: Discharge to home or self care 07/20/2024 9:50 AM CDT Lab [facility] Infectious Diseases [address] [facility] [address] [place] [phone] 07/20/2024 8:30 AM CDT Office Visit [facility] Allergy and Immunology 1 [facility] 1 [place] [phone] Yannick Rincon MD Hypogammaglobulinemia (Primary Dx); Recurrent [...] 05/14/2023 Assessment & Plan (05/14/2023 8:37 PM NAIL ARTIST): The parotid gland has returned to normal [...] b.i.d. Assessment & Plan (05/14/2023 8:00 PM NAIL ARTIST): Patient's symptoms are responding to the antibiotic. [...] reassess Assessment & Plan (05/14/2023 7:38 PM NAIL ARTIST): Patient has noted swelling just in front [...] Reviewed options for assistance with cessation. 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 Pt declines assistance at this time but may contact the office at anytime for further help as they desire. Assessment & Plan (11/30/2022 8:34 PM CDT): Encouraged smoking cessation. Discussed 3 minutes. Reviewed options for assistance with cessation. 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 Pt declines assistance [...] provided Assessment & Plan (02/14/2022 7:09 PM NAIL ARTIST): Mammogram order provided Adrenal adenoma, left 02/13/2022 Assessment & Plan (02/13/2022 10:49 PM NAIL ARTIST): I do not know the size of [...] is to follow the recommendations from her banking supervisor regarding her an autoimmune medications while on antibiotics. Pericardial effusion 11/05/2021 Assessment & Plan (11/23/2021 6:15 PM CDT): Continue per cardio Dr. 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 De Leon/cardiology Continue statin, aspirin and beta-sera Assessment & Plan (05/02/2022 10:51 PM NAIL ARTIST): Continue statin calcium channel sera She is on an AC Assessment & Plan (02/13/2022 10:49 PM NAIL ARTIST): Continue per Cardiology. Patient is on statinand [...] [facility] Will f/u on results and discuss with [...] sodium. Assessment & Plan (05/04/2022 2:07 PM NAIL ARTIST): Patient presents with acute onset flank pain [...] We reviewed normal cta chest/upper abdomen from [place] from er visit. Leukocytosis 10/26/2021 Assessment & [...] 2022) Assessment & Plan (05/04/2022 1:48 PM NAIL ARTIST): History of DVT in the left upper extremity. Awaiting recommendations from Hematology appointment to determine status of anticoagulant use. Assessment & Plan (05/02/2022 10:50 PM NAIL ARTIST): Continue Xarelto. Awaiting appointment with Hematology to determine long-term plans of the need for an AC. Assessment & Plan (02/13/2022 10:48 PM NAIL ARTIST): Patient continues with the Xarelto. Had DVT [...] 09/23/2021 Assessment & Plan (02/03/2022 9:34 AM NAIL ARTIST): -stool studies as above. No evidence of [...] done. Assessment & Plan (05/02/2022 10:50 PM NAIL ARTIST): This is a significant, separately identifiable problem [...] further evaluation since her GI at [facility] is on leave. If she has increased [...] (07/30/2021): Added automatically from request for surgery [id number] Assessment & Plan (05/02/2022 10:49 PM NAIL ARTIST): Status post surgery. Continue per Dr. Pitst. She continues to follow with him about every 6 months. 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 Add [...] 05/30/2021 Assessment & Plan (05/30/2021 12:00 PM NAIL ARTIST): Persistent pain after being tackled by a [...] 05/30/2021 Assessment & Plan (05/30/2021 12:01 PM NAIL ARTIST): Persistent pain after being tackled by a [...] 02/15/2021 Assessment & Plan (02/15/2021 6:07 PM NAIL ARTIST): See cough Cough 02/15/2021 Assessment & Plan [...] immediately. Assessment & Plan (02/15/2021 6:06 PM NAIL ARTIST): Patient to presume positive COVID until results are available and self isolate for 10 days from the onset of sxs. Check COVID test thru [facility] collection site in [place]. If positive, complete quarantine and consider monoclonal [...] water often. If needed, use a hand legal coordinator that contains at least 60% alcohol. Clean and disinfect frequently touched surfaces such as tables, doorknobs, countertops, etc daily. Avoid touching your eyes, nose, and mouth when possible. Other fatigue 12/12/2020 TIM (dyspnea on exertion) 12/12/2020 Palpitations 12/12/2020 Assessment & Plan (05/02/2022 10:48 PM NAIL ARTIST): Continue per Dr. De Leon. She just changed medications so awaiting results. Will continue monitor closely Assessment & Plan (03/18/2021 12:13 PM NAIL ARTIST): Continue per Cardiology and complete workup. Family [...] 06/05/2020 Assessment & Plan (03/18/2021 12:13 PM NAIL ARTIST): Continue oxybutynin Assessment & Plan (06/05/2020 12:03 [...] Overview (07/18/2020): Negative workup done 06/2020 with [facility] [place]. Plan repeat workup in [...] (03/28/2020): Added automatically from request for surgery [id number] Gastroesophageal reflux disease 01/15/2020 Assessment & Plan (06/18/2024 9:33 AM CDT): Doing well on daily omeprazole. Educated on importance of avoiding certain food triggers. Also recommended for her to eat smaller portions throughout the day especially when starting Wegovy. Assessment & Plan (02/03/2022 9:34 AM NAIL ARTIST): -EGD as above. No esophagitis noted. Gastritis+ [...] dose. Assessment & Plan (03/18/2021 12:12 PM NAIL ARTIST): Continue pantoprazole Assessment & Plan (12/14/2020 2:47 [...] Recommend short term Mobic. She states her banking supervisor will only let her use Mobic 7.5mg [...] 12/28/2018 Assessment & Plan (03/18/2021 12:12 PM NAIL ARTIST): Pre-diabetes/hyperglycemia is a precursor to Dm. Stressed [...] 05/14/2023 Assessment & Plan (05/14/2023 7:38 PM NAIL ARTIST): Patient notes pain in both hands. Her banking supervisor suggest seen in ortho hand for possible injections. Will make referral to Dr. Looney for further evaluation Facial swelling 05/14/2023 08/28/2023 Assessment & Plan (05/14/2023 8:37 PM NAIL ARTIST): The parotid gland has returned to normal [...] 24 Assessment & Plan (04/25/2023 11:41 AM NAIL ARTIST): Discussed the patient's BMI. The BMI is above average. BMI management plan is completed. BMI Follow-up includes: nutrition counseling, exercise counseling and education provided. Acute right-sided low back p ain without sciatica 03/19/2023 01/08/2024 Assessment & Plan (03/19/2023 9:20 PM NAIL ARTIST): Encouraged NSAIDS (if able to safely tolerate) or Tylenol. Topical preparations like Lidocaine patches, Biofreeze, ICYHOT etc as needed. Heat, stretching Avoid long periods of sitting/laying. Encouraged PT. Followup if has any problems controlling bowels or bladder or if sxs worsen. Neck pain 03/19/2023 01/08/2024 Assessment & Plan (03/19/2023 9:20 PM NAIL ARTIST): Encouraged NSAIDS (if able to safely tolerate) or Tylenol. Topical preparations like Lidocaine patches, Biofreeze, ICYHOT etc as needed. Heat, stretching Avoid long periods of sitting/laying. Encouraged PT. Followup if has any problems controlling bowels or bladder or if sxs worsen. Coronary artery disease invo lving hoh coronary artery of hoh heart without angina pectoris 12/03/2022 01/08/2024 Periorbital [...] 04/25/19 Assessment & Plan (04/25/2023 11:40 AM NAIL ARTIST): Discussed the patient's BMI. The BMI is above average. BMI management plan is completed. BMI Follow-up includes: nutrition counseling, exercise counseling and education provided. Assessment & Plan (03/19/2023 9:19 PM NAIL ARTIST): Discussed the patient's BMI. The BMI is [...] 35.00-39.99. Assessment & Plan (05/14/2023 8:39 PM NAIL ARTIST): Discussed the patient's BMI. The BMI is above average. BMI management plan is completed. BMI Follow-up includes: nutrition counseling, exercise counseling and education provided. Patient has an obesity-related condition (not limited to: hypertension, obstructive sleep apnea, osteoarthritis, hyperlipidemia, diabetes, etc.). Therefore, morbid obesity may be documented for patients with a BMI between 35.00-39.99. Assessment & Plan (05/14/2023 7:36 PM NAIL ARTIST): Discussed the patient's BMI. The BMI is above average. BMI management plan is completed. BMI Follow-up includes: nutrition counseling, exercise counseling and education provided. Patient has an obesity-related condition (not limited to: hypertension, obstructive sleep apnea, osteoarthritis, hyperlipidemia, diabetes, etc.). Therefore, morbid obesity may be documented for patients with a BMI between 35.00-39.99. Assessment & Plan (05/14/2023 8:00 PM NAIL ARTIST): Discussed the patient's BMI. The BMI is above average. BMI management plan is completed. BMI Follow-up includes: nutrition counseling, exercise counseling and education provided. Patient has an obesity-related condition (not limited to: hypertension, obstructive sleep apnea, osteoarthritis, hyperlipidemia, diabetes, etc.). Therefore, morbid obesity may be documented for patients with a BMI between 35.00-39.99. Assessment & Plan (03/19/2023 9:19 PM NAIL ARTIST): Discussed the patient's BMI. The BMI is [...] Reviewed options for assistance with cessation. 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 Pt declines assistance [...] 01/08/2024 Assessment & Plan (05/04/2022 1:51 PM NAIL ARTIST): Send urine for culture Right foot pain 02/14/2022 01/08/2024 Assessment & Plan (05/02/2022 10:54 PM NAIL ARTIST): This is a significant, separately identifiable problem that was evaluated and managed on the same day as the wellness exam Patient has had persistent pain. She would like another evaluation. Will make referral to Dr. Avalos. Encouraged her to bring her MRI disc with her for evaluation. Patient is in agreement with the plan Assessment & Plan (02/14/2022 7:09 PM NAIL ARTIST): Patient with persistent right foot pain. Recommend seen Podiatry for further evaluation Chronic pain of left knee 02/14/2022 Assessment & Plan (02/14/2022 7:10 PM NAIL ARTIST): Difficult to know if her knee is [...] loss Assessment & Plan (05/02/2022 10:51 PM NAIL ARTIST): Continue PPI Assessment & Plan (02/13/2022 11:04 PM NAIL ARTIST): PPI prn Obesity (BMI 30-39.9) 01/21/20222021 Assessment & Plan (01/21/2022 9:02 AM CDT): Obesity is unchanged. Discussed the patient's BMI. The BMI is above average. BMI management plan is completed. BMI Follow-up includes: nutrition counseling, exercise counseling and education provided. BMI 36.0-36.9,adult 01/21/2022 08/19/19 Assessment & Plan (05/03/2022 1:11 PM NAIL ARTIST): Discussed the patient's BMI. The BMI is above average. BMI management plan is completed. BMI Follow-up includes: nutrition counseling, exercise counseling and education provided. Assessment & Plan (05/02/2022 10:51 PM NAIL ARTIST): Discussed the patient's BMI. The BMI is above average. BMI management plan is completed. BMI Follow-up includes: nutrition counseling, exercise counseling and education provided. Assessment & Plan (02/14/2022 7:08 PM NAIL ARTIST): Discussed the patient's BMI. The BMI is [...] 08/18/2022 Assessment & Plan (05/04/2022 1:50 PM NAIL ARTIST): Discussed the patient's BMI. The BMI is above average. BMI management plan is completed. BMI Follow-up includes: nutrition counseling, exercise counseling and education provided. Patient has an obesity-related condition (not limited to: hypertension, obstructive sleep apnea, osteoarthritis, hyperlipidemia, diabetes, etc.). Therefore, morbid obesity may be documented for patients with a BMI between 35.00-39.99. Assessment & Plan (05/02/2022 10:51 PM NAIL ARTIST): Discussed the patient's BMI. The BMI is above average. BMI management plan is completed. BMI Follow-up includes: nutrition counseling, exercise counseling and education provided. Patient has an obesity-related condition (not limited to: hypertension, obstructive sleep apnea, osteoarthritis, hyperlipidemia, diabetes, etc.). Therefore, morbid obesity may be documented for patients with a BMI between 35.00-39.99. Assessment & Plan (02/14/2022 7:08 PM NAIL ARTIST): Discussed the patient's BMI. The BMI is above average. BMI management plan is completed. BMI Follow-up includes: nutrition counseling, exercise counseling and education provided. Patient has an obesity-related condition (not limited to: hypertension, obstructive sleep apnea, osteoarthritis, hyperlipidemia, diabetes, etc.). Therefore, morbid obesity may be documented for patients with a BMI between 35.00-39.99. Assessment & Plan (02/13/2022 10:49 PM NAIL ARTIST): Discussed the patient's BMI. The BMI is [...] provided. Assessment & Plan (05/14/2023 8:33 PM NAIL ARTIST): Discussed the patient's BMI. The BMI is above average. BMI management plan is completed. BMI Follow-up includes: nutrition counseling, exercise counseling and education provided. Patient has an obesity-related condition (not limited to: hypertension, obstructive sleep apnea, osteoarthritis, hyperlipidemia, diabetes, etc.). Therefore, morbid obesity may be documented for patients with a BMI between 35.00-39.99. Assessment & Plan (05/14/2023 7:37 PM NAIL ARTIST): Discussed the patient's BMI. The BMI is [...] 05/05/20212021 Assessment & Plan (05/05/2021 3:21 PM NAIL ARTIST): Obesity is unchanged. Discussed the patient's BMI. [...] 024 Assessment & Plan (05/02/2022 10:47 PM NAIL ARTIST): Encouraged healthy lifestyle, good nutrition and exercise. Encouraged Calcium and Vitamin D and weight bearing exercise for bone health. Reviewed immunizations Reviewed age appropirate screenings. Assessment & Plan (03/18/2021 12:12 PM NAIL ARTIST): Encouraged healthy lifestyle, good nutrition and exercise. [...] 10/13/2019 Assessment & Plan (04/08/2019 5:55 PM NAIL ARTIST): Left foot/ankle/achilles pain. Appt set with Dr. [...] she is to follow up with her banking supervisor to determine proper use of her biologic since she will be on antibiotics. She states she will contact them but usually she has to hold it through the course of the antibiotic. Assessment & Plan (05/04/2022 1:47 PM NAIL ARTIST): Continue per Rheumatology. Patient just started Enbrel Assessment & Plan (05/02/2022 10:47 PM NAIL ARTIST): Continue per [facility] Assessment & Plan (02/13/2022 10:47 PM NAIL ARTIST): Continue per Rheumatology Assessment & Plan (03/18/2021 12:11 PM NAIL ARTIST): Continue per Rheumatology. Assessment & Plan (01/15/2020 [...] provided. Assessment & Plan (04/05/2019 10:30 AM NAIL ARTIST): Obesity is unchanged. Discussed the patient's BMI. [...] provided. Assessment & Plan (04/05/2019 10:30 AM NAIL ARTIST): Obesity is unchanged. Discussed the patient's BMI. [...] on file Legal Sex Female 3:25 AM NAIL ARTIST Gender Identity Female 09/05/2020 9:47 AM CDT [...] on file Medical Devices Implanted Type Area Stockkeeper Device Identifier Shelf Expiration Date Model / Serial / Lot Sqor Sportslife Inc Photofix Bovine 6x8 Pericardium Pfp 6x8 - S/ - [id number] Implanted:Qty: 1 on 09/29/2021 by Bradley Pitts MD at [facility] Graft Right: Chest Cryolife Inc [id number] 06/14/2023 PFP 6X8 / / / [id number] Cerapedics Inc 700-025 I Factor Allograft Putty Syringe Graft 2.5cc Bone - [id number] Implanted:Qty: 1 on 04/15/2020 by Jong Chavez MD at [facility] N/A: Spine Cervical Cerapedics Inc 700-025 / / Depuy Spine [id number] 8mm 4d Large Cage Spinal Eit Sterile Latex Free Cervical - [id number] - [id number] Implanted:Qty: 1 on 04/15/2020 by Jong Chavez MD at [facility] N/A: Spine Cervical Depuy Synthes Spine [id number] / [id number] / [id number] Da Biomet Inc [id number] Maxan 4mm 14mm Variable Angle Self Drill Spine Screw Bone - [id number] Implanted:Qty: 1 on 04/15/2020 by Jong Chavez MD at [facility] N/A: Spine Cervical [employer] [id number] / / Da [employer] Inc [id number] Maxan 9mm Cervical Spine Plate Bone - [id number] Implanted:Qty: 1 on 04/15/2020 by Jong Chavez MD at [facility] N/A: Spine Cervical [employer] [id number] / / Da [employer] Inc [id number] Maxan 4.5mm 14mm Variable Angle Spine Screw Bone - [id number] Implanted:Qty: 3 on 04/15/2020 by Jong Chavez MD at [facility] N/A: Spine Cervical [employer] [id number] / / Procedures Procedure Name Priority Date/Time Associated Diagnosis Comments BLOOD MISC TO [place] Routine 08/30/2024 5: 41 PM CDT STREP PNEUMONIAE ANTIBODY SEROTYPES Routine 08/30/2024 12:00 PM CDT Hypogammaglobulin emia Recurrent sinus infections BLOOD MISC TO [place] Routine 07/20/2024 9: 25 AM CDT IMMUNOGLOBULIN [...] Read Routine (OP Routine) 02/06/2024 8:59 AM NAIL ARTIST Breast cancer screening by mammogram COLONOSCOPY 01/21/2023 9:50 AM CDT from Last 3 Months or Most Recently Relevant to Health Maintenance Results * BLOOD MISC TO [place] (08/30/2024 5:41 PM CDT) Test name, chem [facility] [place] [facility] Misc See Footnote [facility] Comment: Test Result Flag Unit RefValue Tetanus Toxoid IgG Ab, S Tetanus IgG Ab Positive REFERENCE VALUE Vaccinated: Positive (>= 0.01 IU/mL) Unvaccinated: Negative (< 0.01 IU/mL) Tetanus IgG Value 1.04 IU/mL ADDITIONAL INFORMATION This test was developed and its performance characteristics determined by [facility] in a manner consistent with CLIA requirements. This test has not been cleared or approved by the U.S. Food and Drug Administration. Test Performed by: [facility] [address] [place] [address] Home Service Advisor: Zonia Do Ph.D.; CLIA# [id number] Blood 08/30/2024 5:41 PM CDT 08/31/2024 2:31 PM CDT Narrative [facility] - 09/04/2024 1:37 PM CDT TETANUS AB IGG Yannick Rincon MD LAB [place] [address] [address] Department [place] [address] [facility] * Strep pneumoniae antibody serotypes (08/30/2024 12:00 PM CDT) S. pneumo Type 1 (1) 0.7 >=1.0 mcg/mL [facility] S. pneumo Type 2 (2) [...] developed and its performance characteristics determined by [facility] in a manner consistent with CLIA requirements. This test has not been cleared or approved by the U.S. Food and Drug Administration. Test Performed by: [facility] [place] [address] Home Service Advisor: Zonia Do Ph.D.; CLIA# [id number] Blood 08/30/2024 12:0 0 PM CDT 08/30/2024 5:42 PM CDT Yannick Rincon MD LAB BLOOD ORDERABLES [facility] Result [facility] [address] [address] Department [place] [address] [facility] * BLOOD MISC TO [place] (07/20/2024 9:25 AM CDT) Test name, chem [facility] [place] [facility] Misc See Footnote [facility] DOUGLASS Comment: Test Result Flag Unit RefValue Tetanus Toxoid IgG Ab, S Tetanus IgG Ab Positive REFERENCE VALUE Vaccinated: Positive (>= 0.01 IU/mL) Unvaccinated: Negative (< 0.01 IU/mL) Tetanus IgG Value 1.31 IU/mL ADDITIONAL INFORMATION This test was developed and its performance characteristics determined by [facility] in a manner consistent with CLIA requirements. This test has not been cleared or approved by the U.S. Food and Drug Administration. Test Performed by: [place] [address] Home Service Advisor: Zonia Do Ph.D.; CLIA# [id number] Blood 07/20/2024 9:25 AM CDT 07/23/2024 8:59 AM CDT [facility] - 07/25/2024 12:12 PM CDT TETANUS AB IgG Yannick Rincon MD LAB BLOOD ORDERABLES nal Result [facility] [address] [address] Department [place] [address] [facility] * (ABNORMAL) Immunoglobulin IgG subclasses (07/20/2024 9:25 AM CDT) [facility] IgG 523(L) 767 - 1590 mg/dL [facility] IgG, fraction 1 255(L) 341 - 894 mg/dL [facility] IgG, fraction 2 228 171 - 632 mg/dL [facility] IgG, fraction 3 50.3 18.4 - 106.0 mg/dL [facility] IgG, fraction 4 8.8 2.4 - 121.0 mg/dL [facility] Comment: Test Performed by: [place] [address] Home Service Advisor: Zonia Do Ph.D.; CLIA# [id number] Blood 07/20/2024 9:25 AM CDT 07/20/2024 8:54 PM CDT us Yannick Rincon MD LAB BLOOD ORDERABLES Fi nal Result [facility] [address] [address] Department [place] [address] [facility] * (ABNORMAL) Immune competence (07/20/2024 9:25 AM CDT) CD3 pct 78 60 - 88 % Comment:Testing performed by : [facility], [address] [facility], [address] CD3 Absolute 1,752 661 - 1,963 cells/mcL [facility] Comment:Testing performed by : [facility], [address] [facility], [address] CD4 pct 56 31 - 64 % [facility] Comment:Testing performed by : [facility], [address] [place] [address], [address] CD4 Absolute 1,220 365 - 1,294 cells/mcL [facility] Comment:Testing performed by : [facility], [address] [facility], [address] CD8 pct 22 12 - 40 % [facility] Comment:Testing performed by : [facility], [address] [facility], [address] CD8 Absolute 486 187 - 781 cells/mcL [facility] Comment:Testing performed by : [facility], [address] [place] [address]., [address] CD19 pct 18 6 - 25 % [facility] Comment:Testing performed by : [facility], [address] [place]., [address] CD19 Absolute 415 86 - 488 cells/mcL [facility] Comment:Testing performed by : [facility], [address] [facility], [address] [id number] pct 3(L) 5 - 25 % [facility] Comment:Testing performed by : [facility], 1 [facility], [place]., [address] [id number] Absolute 71(L) 76 - 467 cells/mcL [facility] Comment:Testing performed by : [facility], [address] [place]., [address] CD4/CD8 ratio 2.5 [facility] Comment:Testing performed by : [facility], 1 [facility], [place]., [address] Blood 07/20/2024 9:25 AM CDT 07/23/2024 10:25 AM CDT us Yannick Rincon MD LAB BLOOD ORDERAB[place] [address] [address] Garcia Department [place] [address] * Strep pneumoniae antibody serotypes (07/20/2024 9:25 AM CDT) S. pneumo Type 1 (1) 0.8 >=1.0 mcg/mL [facility] S. pneumo Type 2 (2) [...] developed and its performance characteristics determined by [facility] in a manner consistent with CLIA requirements. This test has not been cleared or approved by the U.S. Food and Drug Administration. Test Performed by: [facility] [address] [place] [address] Home Service Advisor: Zonia Do Ph.D.; CLIA# [id number] Blood 07/20/2024 9:25 AM CDT 07/20/2024 8:54 PM CDT us Yannick Rincon MD LAB BLOOD ORDERABLES Fi nal Result Performing Organization Address [facility] Co de Phone Number EVERARDO EVONNE [address] Radha [place] [address] [facility] * IgE (07/20/2024 9:25 AM CDT) IgE 8 <=100 IUnits/mL Comment:Testing performed by : [facility], [address], [place]., [address] Blood 07/20/2024 9:25 AM CDT 07/21/2024 9:39 AM CDT Yannick Rincon MD LAB BLOOD ORDERABLES Fi nal Result Performing Organization Address City/[facility]/[place] Number [place] [address] Radha Garcia [place] [address] * IgA (07/20/2024 9:25 AM CDT) Immunoglobulin A 126 70 - 400 mg/dL Blood 07/20/2024 9:25 AM CDT 07/20/2024 8:54 PM CDT us Yannick Rincon MD LAB BLOOD ORDERABLES Fi nal Result [place]O [place] [address] Radha Garcia [facility] [place] [address] * IgM (07/20/2024 9:25 AM CDT) Immunoglobulin M 148 40 - 150 mg/dL Blood 07/20/2024 9:25 AM CDT 07/20/2024 8:54 PM CDT Yannick Rincon MD LAB BLOOD ORDERABLES Fi nal Result Performing Organization Address [facility] Co de Phone Number EVERARDO [place]GLASS [address] Radha Garcia [place] [address] * Screening Mammogram Bilateral W Jordan (02/06/2024 8:59 AM NAIL ARTIST) Anatomical Region Laterality Modality Breast Bilateral Mammography Impressions 02/06/2024 10:03 AM NAIL ARTIST BI-RADS ATLAS category (overall): 1 - Negative There is no mammographic evidence of malignancy. A 1 year screening mammogram is recommended. The patient has been or will be contacted. We recommend annual screening mammography for women at average risk of breast cancer beginning at age 40, based on guidelines of the [employer] (ACR Practice Parameter for the Performance of Screening and Diagnostic Mammography) and [employer]. For women with and elevated risk of breast cancer, please refer to the ACR Practice Parameter for specific screening recommendations. The patient will be entered into a reminder system with a target due date of 1 year for her next screening exam. Narrative 02/06/2024 10:03 AM NAIL ARTIST Screening Mammogram Bilateral W Jordan: 02/06/24 The [...] Mcgill MD - 01/21/2023 9:50 AM CDT [facility] Patient Name: Kelsie Vaughn Procedure Date: 01/21/2023 9:50 AM Date of : 1980 Admit Type: Outpatient Age: 42 Gender: Female Attending MD: Derrek Mcgill M.D. Room: [facility] ENDOSCOPY ROOM 06 Note Status: Finalized Procedure: [...] On: 01/21/2023 9:50 AM Recognized by the [employer] [employer] for promoting quality in endoscopy Derrek Mcgill MD ENDOSCOPY PROCEDURES Final Resul t from Last 3 Months or Most Recently Relevant to Health Maintenance [place] Advance Directives For more information, please contact: [phone] * Full Code (Latest Code Status on File) Date Activated Date Inactivated Comments 09/29/2021 5:49 PM 10/03/2021 1:26 AM Care Teams Mortgage Loan Underwriter Relationship Specialty Start Date End Date Monalisa John PA [address] [place] [address] PCP - General Internal Medicine 08/22/18 Elizabeth Alvarez NP [address] [place], [place] [id number] Nurse Practitioner Urology 05/04/22
--- OUTSIDE RECORDS SUMMARY | 2024-10-07 22:13 | XMS_ITS | Encounter Summary ---
Author Organization [facility] Address [address] [place] [address] Care Team Providers Care Fish Farmer Name Role Phone Monalisa John Primary Care Provider [phone] Elizabeth Alvarez NP Unavailable [phone] Encounter Details Date Type Department Care Team (Late st Contact Info) Description 08/12/2011 Orders Only [facility] Health Information Management [address] [place] [address] Scanning, Provider Social History Tobacco Use Types Packs/Day Years Used Date Smoking Tobacco: Never Assessed Comments Unknown Sex and Gender Information Value Date Recorded Sex Assigned at Not on file 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
--- OUTSIDE RECORDS SUMMARY | 2024-10-07 22:13 | XMS_ITS | Clinical Summary ---
Author Organization [facility] Address [address] [place] [address] Care Team Providers Care Lasting Machine Operator Name Role Phone Monalisa John Primary Care Provider [phone] Social History Tobacco Use Types Packs/Day Years Used Date Smoking Tobacco: Never Assessed Comments Unknown Sex and Gender Information Value Date Recorded Sex Assigned at Female 04/20/2024 4:21 PM APARTMENT COMMUNITY ASSISTANT MANAGER Legal Sex Female 8:43 AM CDT Gender [...] patient's age to complete this topic Insurance [facility] Care Teams Lasting Machine Operator Relationship Specialty Start Date End Date Monalisa John PA [email or web address] [place] [address] PCP - General PHYSICIAN INSPECTOR [employer] 01/01/20
--- OUTSIDE RECORDS SUMMARY | 2024-10-07 22:13 | XMS_ITS ---
Author Organization [facility] [address] [facility] Address [address] [place] [address] Care Team Providers Care Chainstitch Binder Name Role Phone Monalisa John Primary Care Provider [phone] Elizabeth Alvarez NP Unavailable [phone] Home Infusion Status:Under Review (Active) Start date:09/18/2024 Enrollment date:09/18/2024 Related service episodes:Specialty Therapies (Active) Continued Care and Services Coordination
--- OUTSIDE RECORDS SUMMARY | 2024-10-07 22:13 | XMS_ITS | Encounter Summary ---
Author Organization [facility] Care Team Providers Care Lock And Dam Repairer Name Role Phone Monalisa John Primary Care Provider [phone] Elizabeth Alvarez NP Unavailable [phone] Encounter Details Date Type Department Care Team (Latest Contact Info) Description 07/16/2015 Orders Only [facility] Provider, MD [place] [address] [place] [address] Social History Tobacco Use Types Packs/Day Years Used Date Smoking Tobacco: Never Assessed Comments Unknown Sex and Gender Information Value Date Recorded Sex Assigned at Not on file 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
--- OUTSIDE RECORDS SUMMARY | 2024-10-07 22:13 | XMS_ITS | Encounter Summary ---
Author Organization 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
[2024-10-07 22:40] LABS: Add Urine Microscopic? YES; Appearance Urine Clear (Clear); Glucose Urine UA Negative (Negative); Leukocyte Esterase Ur Negative LEU/UL (Negative); Nitrate Urine Negative (Negative); Specific Grav Ur 1.002 (1.001-1.035)
[2024-10-07 22:41] LABS: Need Manual Microscopic Reviewed; Non Pathogenic Casts 0-2
[2024-10-07 22:45] LABS: Alanine Aminotransferase 14 U/L (6-35); Albumin Level 4.0 g/dL (3.5-5.1); Alkaline Phosphatase 75 U/L (38-126); Anion Gap 7 mmol/L (4-12); Aspartate Amino Transferase 23 U/L (14-36); Bilirubin,Total 0.3 mg/dL (0.2-1.3); Blood Urea Nitrogen 7 mg/dL (7-17); Calcium 9.1 mg/dL (8.4-10.2); Carbon Dioxide 22 mmol/L (22-30); Chloride 105 mmol/L (98-107); Estimated CRCL calculation 91 ml/min; Estimated Glomerular Filt Rate > 60; Glucose 95 mg/dL (65-110); Lipase 62 U/L (23-300); Potassium 3.5 mmol/L (3.4-5.0); Sodium 134 mmol/L (137-145); Total Protein 6.5 g/dL (6.3-8.2)
--- NOTE | 2024-10-07 22:57 | ED_ITS ---
HPI - Abdominal Pain General Chief Complaint: Abdominal Pain Stated Complaint: right sided abd pain Time Seen by Provider: 10/07/24 21:54 History of Present Illness HPI narrative: 43-year-old female with a past medical history including SLE, rheumatoid arthritis, hypogammaglobulinemia. She presents to the emergency depart with sharp right-sided abdominal pain associated with nausea, vomiting and decreased appetite. Started yesterday and she took some oxycodone at home without any significant relief. History of kidney stones but this feels very dissimilar to that episode. Same location on the side on the right. No urinary complaints but states that she has been constipated as well. No dark tarry stools or any rectal bleeding. No significant new medication changes. Is on injectable semaglutide but been on a stable dose for quite some time. No trauma or injury. Denies chance of . History of cholecystectomy but still has her appendix. Related Data Home Medications ?Medication ?Instructions ?Recorded ?Confirmed ?Last Taken ?Type adalimumab 40 mg/0.4 mL 40 mg subcut WEEKLY 10/12/21 10/12/21 Unknown History subcutaneous pen kit (Humira(CF) Pen) albuterol sulfate 90 mcg/actuation 1 - 2 puff inhalation Q4-6H PRN 10/12/21 10/12/21 Unknown History aerosol inhaler Shortness Of Breath dicyclomine 20 mg tablet 20 mg PO HS PRN Abdominal Pain 10/12/21 10/12/21 Unknown History hydroxychloroquine 200 mg tablet 200 mg PO Q12H 10/12/21 10/12/21 Unknown History magnesium oxide 400 mg (241.3 mg 400 mg PO 2000 10/12/21 10/12/21 Unknown History magnesium) tablet methocarbamol 500 mg tablet 500 mg PO Q8H PRN Muscle Spasm 10/12/21 10/12/21 Unknown History metoprolol succinate 50 mg 25 mg PO HS 10/12/21 10/12/21 Unknown History tablet,extended release 24 hr omeprazole 40 mg capsule,delayed 40 mg PO Q12H 10/12/21 10/12/21 Unknown History release ondansetron 4 mg disintegrating 4 mg PO Q8H PRN Nausea And Vomiting 10/12/21 10/12/21 Unknown History tablet oxycodone 5 mg tablet 5 mg PO Q4H PRN Pain 10/12/21 10/12/21 Unknown History prednisone 5 mg tablet 5 mg PO Q12H PRN Pain 10/12/21 10/12/21 Unknown History tizanidine 4 mg tablet 4 mg PO Q6H 10/12/21 10/12/21 Unknown History Allergies Allergy/AdvReac Type Severity Reaction Status Date / Time acetaminophen (From Tylenol) Allergy Itching Verified 10/17/21 12:29 Review of Systems 2 Review of Systems: As reviewed above in [facility] Past Medical History Medical History Immunosuppressed status Elevated liver enzymes Thoracic outlet syndrome Surgical History Surgical History History of cholecystectomy Family History Family History Other Hypertension Social History Social History Smoking packs per day: 0.5 Smoking cigarettes per day: 10.0 Years smoked: 20 Smoking pack-years: 10.00 Smoking status: Current every day smoker Tobacco type: cigarettes Alcohol intake: never Substance use: current Substance use type: marijuana Last use: couple weeks ago Gender identity (if verbalized by the patient): Female Spiritual care concerns: No Exam 2 Narrative: GENERAL: Uncomfortable appearing but not any acute distress HEAD: [Normocephalic, atraumatic.] EYES: [PERRLA and EOMI.] ENT: Nares clear, no rhinorrhea or epistaxis. Mucous membranes moist. NECK: Supple. CHEST: [Clear to auscultation. No respiratory distress.] HEART: [Regular rate and rhythm]. No murmur heard. [Normal peripheral pulses.] ABDOMEN: [Soft, nondistended], tender to palpation the right lower quadrant and right flank/CVA region, [No rigidity or guarding] EXTREMITIES: Normal range of motion. [No edema.] SKIN: Warm, dry, no rash. NEURO: [No focal deficits]. Alert and oriented [x3.] PSYCH: [Normal mood and affect.] Course Vital Signs Vital signs: Vital Signs Temperature 36.5 C 10/07/24 20:31 Respiratory Rate 16 10/07/24 20:31 Blood Pressure 133/81 10/07/24 20:31 Pulse Oximetry 99 10/07/24 20:31 Oxygen Delivery Room Air 10/07/24 20:31 Temperature 36.7 C 10/08/24 02:00 Pulse Rate 61 10/08/24 05:02 Respiratory Rate 15 10/08/24 05:02 Blood Pressure 92/60 L 10/08/24 05:02 Pulse Oximetry 100 10/08/24 05:02 Oxygen Delivery Room Air 10/07/24 22:10 MDM - Abdominal Pain MDM Narrative Medical decision making narrative: 43-year-old female with a past medical history including SLE, rheumatoid arthritis, hypogammaglobulinemia. She presents to the emergency depart with sharp right-sided abdominal pain associated with nausea, vomiting and decreased appetite. Started yesterday and she took some oxycodone at home without any significant relief. History of kidney stones but this feels very dissimilar to that episode. Same location on the side on the right. No urinary complaints but states that she has been constipated as well. No dark tarry stools or any rectal bleeding. No significant new medication changes. Is on injectable semaglutide but been on a stable dose for quite some time. No trauma or injury. Denies chance of . History of cholecystectomy but still has her appendix. Patient is hemodynamically stable with normal vital signs, no fever, hypoxia significant blood pressure concerns. She has reproducible pain with deep palpation the right lower quadrant and right CVA. Given patient's history of kidney stones this could be nephrolithiasis or ureterolithiasis but she states that the pain is very dissimilar to that and feels like something else is going on. With the nausea vomiting, decreased appetite and some constipation signs point towards potential GI pathology such as appendicitis, colitis, obstruction. Laboratory studies were obtained including urinalysis, CBC, CMP, urinalysis. She was given Dilaudid and Zofran as well as fluid bolus and re-evaluated. CT abdomen pelvis was obtained with IV contrast. CT scan shows multiple right-sided ovarian follicles which aggregate masses 5.6 x 3.1 cm. Left ovarian cyst measuring 1 by 1.4 cm. Patient re-evaluated and doing better from a pain perspective. We went over the CT findings and recommendations at this time were to pursue ultrasound to make sure that there is no ovarian torsion pathology around the large collection of ovarian follicle/cyst. This was ordered and shows no ovarian torsion. Ovaries are normal in size in comparison and there is no free fluid in the pelvis. Patient's pain is better improved after several rounds of medications. She felt comfortable going home at this time with outpatient OBGYN follow-up. Discussed treatment options including anti-inflammatories and hormonal therapies for ovarian follicles and cysts and she will prefer to defer to her regular doctors to start her on new medications rather than receiving prescriptions at this time. Patient given strict return precautions and safely discharged home at this time. Medical Records Attestation: I reviewed the patient's medical records. Lab Data Attestation: I reviewed the patient's lab results. 10/07/24 22:06 10/07/24 22:06 Labs: Lab Results 10/07/24 10/07/24 Range/Units 21:59 22:06 WBC 11.2 H (4.5-10.0) K/mm3 RBC 4.26 (4.2-5.4) M/mm3 Hgb 13.4 (12.0-15.0) g/dL Hct 39.6 (37.0-47.0) % MCV 93.0 (80-100) fl MCH 31.5 (26-34) pg MCHC 33.8 (32-36) g/dl RDW 12.6 (11.5-14.5) % Plt Count 194 (150-375) k/mm3 MPV 9.8 (7.4-10.4) fl Immature Gran % (Auto) 0.2 (0-0.5) % Neut % (Auto) 61.4 (45.5-73.1) % Lymph % (Auto) 31.4 (18.3-44.2) % [place] % (Auto) 5.5 (2.6-8.5) % Eos % (Auto) 1.1 (0-4.4) % Baso % (Auto) 0.4 (0.2-1.2) % Lymph # (Auto) 3.52 H (0.9-3.2) K/mm3 [place] # (Auto) 0.6 (0.1-0.6) K/mm3 Eos # (Auto) 0.1 (0-0.3) K/mm3 Baso # (Auto) 0.1 (0.0-0.1) K/mm3 Abs Immat Gran (auto) 0.02 (0.00-0.031) K/mm3 Absolute Neuts (auto) 6.9 H (1.3-6.7) K/mm3 Absolute Nucleated RBC 0.000 (0.0-0.012) K/mm3 Nucleated RBC % 0.0 (0.0-0.2) % Sodium 134 L (137-145) mmol/L Potassium 3.5 (3.4-5.0) mmol/L Chloride 105 (98-107) mmol/L Carbon Dioxide 22 (22-30) mmol/L Anion Gap 7 (4-12) mmol/L BUN 7 (7-17) mg/dL Creatinine 0.73 (0.7-1.0) mg/dL Estim Creat Clear Calc 91 ml/min Estimated GFR > 60 (59 - ) Glucose 95 (65-110) mg/dL Calcium 9.1 (8.4-10.2) mg/dL Total Bilirubin 0.3 (0.2-1.3) mg/dL AST 23 (14-36) U/L ALT 14 (6-35) U/L Alkaline Phosphatase 75 (38-126) U/L Total Protein 6.5 (6.3-8.2) g/dL Albumin 4.0 (3.5-5.1) g/dL Lipase 62 (23-300) U/L Urine Color Yellow (Yellow) Urine Appearance Clear (Clear) Urine pH 6.0 (5.0-9.0) Ur Specific [place] 1.002 (1.001-1.035) Urine Protein Negative (Negative) mg/dL Urine Glucose (UA) Negative (Negative) mg/dL Urine Ketones Negative (Negative) mg/dL Ur Blood (Man) 1+ H (Negative) Urine Nitrate Negative (Negative) Urine Bilirubin Negative (Negative) Urine Urobilinogen 0.2 (<2.0) mg/dL Add Ur Microanalysis Reviewed Leukocyte Esterase Rfl Negative (Negative) KATERINE/UL Urine RBC 0-2 (0-2) /hpf Urine WBC 0-5 (0-3) /hpf Ur Squamous Epith Cells None seen (Few) /hpf Urine Bacteria None seen /hpf Urine Casts 0-2 POC Urine HCG, Qual Negative (Negative) Imaging Data Attestation: I personally reviewed and interpreted this imaging study as follows: My impression: Multiple ovarian follicles in the right side measuring 5.6 x 3.1 cm in aggregate size. No ovarian torsion. Radiologist's impression: ITS Impressions Pelvis Ultrasound 10/08/24 05:11 IMPRESSION: 1. Unremarkable pelvic ultrasound. Discharge Plan Discharge Clinical Impression: Follicular cyst of right ovary, Abdominal pain, RLQ Patient Disposition: Home Condition: Stable Instructions: Antibiotic Form, Ovarian Cyst (ED), Abdominal Pain (ED) Additional Instructions: Multiple ovarian follicles in the right side measuring 5.6 x 3.1 cm in aggregate size. No ovarian torsion. Laboratory studies are normal. Follow-up with OBGYN and your primary care provider on outpatient basis. Treatment regimen includes anti-inflammatories and discussion with OB for potential estrogen containing supplements or medications to help with this cysts/follicles. Return if he started experiencing severe pain in the right lower quadrant, nauseousness, vomiting, or any other emergent concerns. Patient Language: Surinamese Prescriptions: New tramadol 50 mg tablet 50 mg PO Q6H PRN (Reason: pain) Qty: 14 0RF No Action methocarbamol 500 mg tablet 500 mg PO Q8H PRN (Reason: Muscle Spasm) tizanidine 4 mg tablet 4 mg PO Q6H metoprolol succinate 50 mg tablet extended release 24 hr 25 mg PO HS prednisone 5 mg tablet 5 mg PO Q12H PRN (Reason: Pain) omeprazole 40 mg capsule,delayed release(DR/EC) 40 mg PO Q12H magnesium oxide 400 mg (241.3 mg magnesium) tablet 400 mg PO 2000 dicyclomine 20 mg tablet 20 mg PO HS PRN (Reason: Abdominal Pain) hydroxychloroquine 200 mg tablet 200 mg PO Q12H albuterol sulfate 90 mcg/actuation HFA aerosol inhaler 1 - 2 puff INHALATION Q4-6H PRN (Reason: Shortness Of Breath) ondansetron 4 mg tablet,disintegrating 4 mg PO Q8H PRN (Reason: Nausea And Vomiting) oxycodone 5 mg tablet 5 mg PO Q4H PRN (Reason: Pain) Humira(CF) Pen 40 mg/0.4 mL pen injector kit 40 mg SUBCUT WEEKLY Rx Instructions: on Fridays furosemide [Lasix] 40 mg tablet 40 mg PO DAILY Qty: 3 0RF potassium chloride 20 mEq tablet extended release 40 meq PO BID Qty: 12 0RF Xarelto DVT-PE Treat 30d Start 15 mg (42)- 20 mg (9) tablets,dose pack See Rx Instructions .ROUTE .COMPLEX Qty: 51 0RF Rx Instructions: take one-15 mg tablet twice daily for 21 days, then one-20 mg tablet once daily; must take with meal/food Follow-up/Referrals: Alvaro,ABRAHAN Sheldon [Primary Care Provider] - Jeyson Rivers MD [Physician] - 3 Days (Multiple follicular cysts right.) Time of Disposition: 04:46
[2024-10-07] MEDS: HYDROmorphone HCL INJ (*CRX) 2 MG/ML VIAL 0.5 MG IV PUSH (23:03)
[2024-10-07] MEDS: ONDANSETRON INJ 4 MG/2 ML VIAL IV PUSH (23:04)
[2024-10-07] MEDS: LACTATED RINGERS 1,000 ML 999 ML IV CONT (23:04)
[2024-10-07 23:08] VITALS: BP 106/72; PULSE 77; RESP 18; TEMP 36.3; O2SAT 100
[2024-10-08] MEDS: HYDROmorphone HCL INJ (*CRX) 2 MG/ML VIAL 0.5 MG IV PUSH ×2 (00:29→04:54)
[2024-10-08 00:30] VITALS: BP 102/70; PULSE 71; RESP 18; TEMP 36.3; O2SAT 99
[2024-10-08 02:00] VITALS: BP 98/79; PULSE 72; RESP 18; TEMP 36.7; O2SAT 96
--- NOTE | 2024-10-08 02:39 | PC.NURSE ---
Report given by Lena HASTINGS.
[2024-10-08 03:01] VITALS: BP 91/67; PULSE 66; RESP 20; O2SAT 98
[2024-10-08 03:16] VITALS: BP 92/60; PULSE 65; RESP 20; O2SAT 97
[2024-10-08 05:02] VITALS: BP 92/60; PULSE 61; RESP 15; O2SAT 100
== END 2024-10-08 05:03 | disposition home or self-care (01) ==
PROVIDERS: Emergency Provider Student in an Organized Health Care Education/Training Program; PCP Physician Assistant
DX: N83.01 Follicular cyst of right ovary (principal); M32.9 Systemic lupus erythematosus, unspecified; M06.9 Rheumatoid arthritis, unspecified; F17.210 Nicotine dependence, cigarettes, uncomplicated; Z87.442 Personal history of urinary calculi; Z90.49 Acquired absence of other specified parts of digestive tract; Z79.01 Long term (current) use of anticoagulants; Z79.899 Other long term (current) drug therapy; Z79.620 Long term (current) use of immunosuppressive biologic; Z79.85 Long-term (current) use of injectable non-insulin antidiabetic drugs
CPT/HCPCS: 36415; 74177; 76856; 80053; 81001; 81025; 83690; 85025; 96361; 96374; 96375; 96376; 99284; J1171; J2405; J7120; Q9967

== ENCOUNTER 2024-11-16 14:12 | Outpatient (CLI) | payer BC, SELFPAY ==
--- NOTE | ~2024-11-16 | US_ITS ---
EXAMINATION: US pelvic complete INDICATION: Bilateral follicular cysts. Pelvic pain. Comparison:Bilateral follicular cysts. Pelvic pain. TECHNIQUE: Multiple transabdominal and endovaginal sonographic images of the pelvis performed. FINDINGS: The uterus is surgically absent. The right ovary measures 3.6 x 1.9 x 2.5 cm and the left ovary measures 2.7 x 1.7 x 2.1 cm. There are small follicles in each ovary. Normal doppler signal in both ovaries. There is no free fluid in the pelvis. There are no abnormal masses seen on either side. IMPRESSION: 1. Unremarkable pelvic ultrasound post hysterectomy. Reviewed, dictated and finalized at location O.
== END 2024-11-16 14:13 | disposition home or self-care (01) ==
LOC: MICIMG 14:13
PROVIDERS: PCP Physician Assistant; Visit Provider Physician Assistant
DX: N83.00 Follicular cyst of ovary, unspecified side (principal); Z90.710 Acquired absence of both cervix and uterus
CPT/HCPCS: 76856

== ENCOUNTER 2025-01-02 12:22 | Outpatient (CLI) | payer BC, SELFPAY ==
--- NOTE | ~2025-01-02 | XR_ITS ---
EXAMINATION: XR elbow RT min 3V, 01/02/2025 12:30 CDT HISTORY: POSTERIOR RT ELBOW PAIN AFTER FALL TUESDAY COMPARISON: No comparisons available. Findings: No acute fracture or malalignment. No significant degenerative changes. Soft tissues unremarkable. Impression: No acute fracture or malalignment. Reviewed, dictated and finalized at location P. Impression: No acute fracture or malalignment.
--- NOTE | ~2025-01-02 | XR_ITS ---
EXAMINATION: XR shoulder RT min 2V, 01/02/2025 12:30 CDT HISTORY: RT SHOULDER PAIN AFTER FALL ON TUESDAY COMPARISON: No comparisons available. Findings: No acute fracture or malalignment. No significant degenerative changes. Soft tissues unremarkable. Impression: No acute fracture or malalignment. Reviewed, dictated and finalized at location P. Impression: No acute fracture or malalignment.
--- NOTE | ~2025-01-02 | XR_ITS ---
EXAMINATION: XR hip RT 2V w AP pelvis, 01/02/2025 12:30 CDT HISTORY: LATERAL RT HIP PAIN AFTER FALL ON TUESDAY COMPARISON: No comparisons available. Findings: No acute fracture or malalignment. No significant degenerative changes. Soft tissues unremarkable. Impression: No acute fracture or malalignment. Reviewed, dictated and finalized at location P. Impression: No acute fracture or malalignment.
== END 2025-01-02 12:23 | disposition home or self-care (01) ==
LOC: MICIMG 12:23
PROVIDERS: PCP Physician Assistant; Visit Provider Physician Assistant
DX: M25.521 Pain in right elbow (principal); M25.511 Pain in right shoulder; M25.551 Pain in right hip; G89.29 Other chronic pain
CPT/HCPCS: 73030; 73080; 73502

== ENCOUNTER 2025-03-11 13:33 | Outpatient (CLI) | payer BC, SELFPAY ==
--- NOTE | ~2025-03-11 | MR_ITS ---
EXAMINATION: MR shoulder RT wo con DATE: 03/11/2025 14:02 INDICATION: Right shoulder pain TECHNIQUE: Magnetic resonance imaging (MRI) of the right shoulder was performed without intravenous contrast. Sequences included axial PD-weighted FS FSE, coronal oblique PD-weighted FS FSE, coronal oblique T2-weighted FS FSE, sagittal PD-weighted FS FSE, and sagittal T1-weighted SE. COMPARISON: None. FINDINGS: Coracoacromial arch: The acromion undersurface is minimally curved in morphology (type I-II). The coracoacromial ligament is normal. Acromioclavicular joint is normal. Rotator cuff: Minimal supraspinatus and subscapularis tendinopathy without discrete tear. The infraspinatus and teres minor tendons are normal. Normal rotator cuff muscle bulk and signal. Biceps tendon, glenoid labrum and glenohumeral cartilage: Long head of the biceps tendon is normal. Glenoid labrum is normal. Glenohumeral cartilage is normal. Fluid: Physiologic amount of fluid in the glenohumeral joint and biceps tendon sheath. No loose osteochondral bodies. Small amount of fluid in the subacromial/subdeltoid bursa consistent with mild bursitis. Bones: Normal marrow signal with no edema, fracture or abnormal marrow replacing process. IMPRESSION: 1. Mild subacromial/subdeltoid bursitis. 2. Minimal supraspinatus and subscapularis tendinopathy without tear. Reviewed, dictated and finalized at location A. [employer]
== END 2025-03-11 13:34 | disposition home or self-care (01) ==
LOC: MICIMG 13:34
PROVIDERS: PCP Physician Assistant; Visit Provider Physician Assistant
DX: M75.51 Bursitis of right shoulder (principal)
CPT/HCPCS: 73221